=== PATIENT | female | born 1965 | race Caucasian/White ===

== ENCOUNTER 2021-01-12 16:34 | Outpatient (REF) | payer OTHER, SELFPAY ==
[2021-01-12 18:43] LABS: MANUAL DIFF FLAG NO
[2021-01-12 18:49] LABS: Basophils Absolute Auto 0.1 X10*3/uL (0.0-0.2); Basophils Percent Auto 0.8 % (0-2); Eosinophils Absolute Auto 0.2 X10*3/uL (0.0-0.4); Eosinophils Percent Auto 2.9 % (0-4); Hematocrit 38.3 % (37-47); Hemoglobin 12.7 g/dl (12.0-16.0); Imm Gran Abs Auto 0.02 X10*3/uL (0.00-0.03); Imm Gran Pct Auto 0.3 % (0.0-0.4); Lymphocytes Absolute Auto 1.9 X10*3/uL (1.2-4.9); Lymphocytes Percent Auto 30.2 % (20-40); Mean Corpuscular HGB Conc 33.2 g/dl (31.0-35.0); Mean Corpuscular Hemoglobin 29.5 pg (27.0-33.0); Mean Corpuscular Volume 89.1 fL (80-98); Mean Platelet Volume 9.5 fL (9.4-12.3); Monocytes Absolute Auto 0.6 X10*3/uL (0.1-1.2); Monocytes Percent Auto 10.2 % (2-11); Neutrophils Absolute Auto 3.5 X10*3/uL (2.0-8.3); Neutrophils Percent Auto 55.6 % (45-73); Platelet Count 212 X10*3/uL (160-400); Red Cell Distribution Width 13.3 % (11.0-16.0); White Blood Count 6.3 X10*3/uL (4.8-10.8)
[2021-01-12 19:13] LABS: Alanine Aminotransferase 23 U/L (0-31); Albumin Level 4.4 g/dL (3.5-5.0); Alkaline Phosphatase 69 U/L (39-117); Anion Gap 11 (12-20); Aspartate Amino Transferase 20 U/L (5-31); Bilirubin Total 1.1 mg/dL (0.0-1.0); Blood Urea Nitrogen 10 mg/dL (9-16); C Reactive Protein 0.03 mg/dL (< or = 0.50); Calcium 9.3 mg/dL (8.4-10.2); Carbon Dioxide 30 mmol/L (22-29); Chloride 105 mmol/L (96-108); Estimated Glomerular Filt Rate > 60; Glucose Random 91 mg/dL (60-115); Potassium 3.9 mmol/L (3.3-5.1); Sodium 142 mmol/L (135-145); Total Protein 6.6 g/dL (6.5-8.0)
[2021-01-12 19:34] LABS: Erythrocyte Sedimentation Rate 6 MM/HR (0-20)
== END 2021-01-12 16:35 | disposition home or self-care (01) ==
LOC: HO.LAB 16:34
PROVIDERS: PCP Nurse Practitioner Family; Visit Provider Student in an Organized Health Care Education/Training Program
DX: M25.50 Pain in unspecified joint (principal); Z79.899 Other long term (current) drug therapy
CPT/HCPCS: 36415; 80053; 85025; 85652; 86140

== ENCOUNTER 2024-08-07 09:55 | Outpatient (AMB) | payer OTHER, SELFPAY ==
--- NOTE | 2024-08-07 09:56 | A.OFFVIS_ITS ---
Vital Signs 08/07/24 09:57 Height 5 ft Weight 147 lb BMI 28.7 BP 128/67 Blood Pressure Location Lt brachial Position Sitting Respiration 14 Pulse 65 Pulse Source Pulse Oximeter Pulse Oximetry (%) 97 Oxygen Delivery Method Room Air Intake Visit Reasons: Disorder of sacrum Allergies penicillin V Allergy (Intermediate, Verified 08/07/24 09:57) rash Sulfacet-R Allergy (Intermediate, Uncoded 08/07/24 09:57) trouble breathing Medication List - Last Reconciled 08/07/24 by Angela Rhoades LPN acetaminophen ER (Tylenol Arthritis Pain) 650 mg PO Q12H calcium carbonate 600 mg PO DAILY celecoxib (Celebrex) 100 mg PO BID cholecalciferol (vitamin D3) 10 mcg PO DAILY docusate sodium (Colace) 100 mg PO TID fluticasone propionate 50 mcg/actuation 1 spray intranasal DAILY fluticasone propionate 100 mcg/actuation (Flovent Diskus) 1 inh inhalation BID hydroxychloroquine (Plaquenil) 200 mg PO DAILY inulin (Fiber Gummies) grams PO lactobacillus combination no.9 (Adult 50 Plus Probiotic) 4,000 mmu cells PO DAILY levothyroxine 100 mcg PO DAILY magnesium 250 mg PO DAILY melatonin 10 mg PO BEDTIME PRN montelukast (Singulair) 10 mg PO DAILY omeprazole 20 mg PO DAILY paroxetine HCl 40 mg PO DAILY HPI HPI Disorder of sacrum: Details: 58-year-old female who presents today to the office for evaluation of disorder of sacrum. She was referred by Dr. Rivas. She has had back pain for many years. The pain is rated at 7-8/10 in intensity. She describes her pain as an aching and stabbing sensation in the lower back region that radiates towards the bilateral lateral hip areas. She is unable to sleep normally or to her daily activities. The pain is worst at night and better when she first wakes up in the morning. Weather changes and movements make it worse. She is taking Plaquenil. She?has?tried?chiropractic manipulation and?m assage?therapy?a?few?times. She has been participating in a provider direct and home exercise program, which has not been very helpful. She has been following up with Dr. Rivas and had a left sacroiliac joint injection and had a fair to good response to anesthetic but little to no response to the steroid. Dr. Rivas prescribed a sacroiliac joint belt, but she is not using it as it does not stay in place. She has not done an MRI scan in the past. She has not done MBB or facet injection. [facility] Social History (Updated 01/12/21 @ 16:40 by Sri Raphael [facility]) Alcohol intake: never Review of Systems Const All systems reviewed & are unremarkable except as noted in HPI and below Physical Exam Vital Signs: Last Vital Signs Pulse 65 08/07/24 09:57 Resp 14 08/07/24 09:57 BP 128/67 08/07/24 09:57 Pulse Ox 97 08/07/24 09:57 Oxygen Delivery Method Room Air 08/07/24 09:57 BMI result Body Mass Index 28.7 General: Appears afebrile. Alert and oriented. Mood and affect appropriate. Follows and participates in conversation appropriately. Respiratory effort is unlabored. Able to transition from sit to stand unassisted. Ambulates with bilaterally normal heel strike and toe off. There is tenderness to palpation overlying the SI joints. There is mild discomfort with SI joint compression and thrust. Lumbar extension and flexion do not reproduce pain. Results Reviewed Results Reviewed: No imaging is available for review. Assessment & Plan Assessment & Plan (1) Low back pain: Code(s): M54.50 - Low back pain, unspecified Category: Medical Plan 58-year-old female with a long-standing history of back pain symptoms treated with chiropractor manipulation, physical therapy, a home exercise program, and anti-inflammatory medications, including DMARDS, for potential spondylarthritis with persistent symptoms. She has never had an MRI of her lower back. So, I recommended an MRI of the lumbar spine before undertaking any further therapy. Her differential includes vertebral endplate degeneration, intervertebral disc degeneration, inflammatory spondylarthritis, and sacroiliitis. We will review her MRI and decide a course of action and proceed after that. The patient is in agreement with the plan. Scribed for Dr. Joy by Tima Macias, medical territory manager, on 08/07/2024. I, Dr. Joy, have personally reviewed and agree with the information entered by the scribe. Orders: Orders MR lumbar spine wo con 08/07/24 M54.50 - Low back pain, unspecified Coding Level of Care Code New Pt Level 4 (13824) Diagnoses Low back pain M54.50
[2024-08-07 09:57] VITALS: BP 128/67; PULSE 65; RESP 14; O2SAT 97; BMI 28.7
== END 2024-08-07 10:44 | disposition home or self-care (01) ==
PROVIDERS: PCP Student in an Organized Health Care Education/Training Program; Visit Provider Internal Medicine
DX: M54.50 Low back pain, unspecified (principal)
CPT/HCPCS: 99204

== ENCOUNTER → 2024-08-07 09:55 | Outpatient (BNVA) | payer OTHER, SELFPAY | PROVIDERS: PCP Student in an Organized Health Care Education/Training Program; Visit Provider Internal Medicine ==

== ENCOUNTER 2024-09-18 09:28 | Outpatient (AMB) | payer OTHER, SELFPAY ==
--- NOTE | 2024-09-18 09:41 | MHC.OFFVIS ---
Vital Signs 09/18/24 09:44 Height 5 ft Weight 145 lb BMI 28.3 BP 112/70 Blood Pressure Location Lt brachial Position Sitting Respiration 16 Pulse Oximetry (%) 99 Oxygen Delivery Method Room Air Intake Visit Reasons: MRI FU Intake Note: Patient presents for MRI follow up. Allergies penicillin V Allergy (Intermediate, Verified 09/18/24 09:44) rash Sulfacet-R Allergy (Intermediate, Uncoded 08/07/24 09:57) trouble breathing HPI HPI MRI FU: Details: 59-year-old female who presents today to the office for a review of MRI scan. She reports back pain that occasionally radiates down to her hips. She has a long-standing history of back pain symptoms treated with chiropractor manipulation, physical therapy, a home exercise program, and anti-inflammatory medications, including DMARDS, for potential spondylarthritis with persistent symptoms. She has completed an MRI scan of the lumbar spine, which was reviewed today. She occasionally uses a steroid inhaler for mild and intermittent asthma. She also has a rescue inhaler. She has been on an inhaler for several years now. She has not done a DEXA scan in the past. She had one round of sacroiliac joint injection with orthopedics with no relief. [facility] Social History (Updated 01/12/21 @ 16:40 by Sri Raphael [facility]) Alcohol intake: never Review of Systems Const All systems reviewed & are unremarkable except as noted in HPI and below Physical Exam Vital Signs: Last Vital Signs Resp 16 09/18/24 09:44 BP 112/70 09/18/24 09:44 Pulse Ox 99 09/18/24 09:44 Oxygen Delivery Method Room Air 09/18/24 09:44 BMI result Body Mass Index 28.3 General: Appears afebrile. Alert and oriented. Mood and affect appropriate. Follows and participates in conversation appropriately. Respiratory effort is unlabored. Able to transition from sit to stand unassisted. Ambulates with bilaterally normal heel strike and toe off. Tenderness on palpation overlying lumbar L3-4 spinous processes. There is?tenderness?to?palpation?overlying?bilateral?sacral?regions,?right more?than?left. Lumbar extension reproduces pain. Lumbar flexion does not reproduce pain. Axial rotation is not uncomfortable. Results Reviewed Results Reviewed: 08/28/24: MR LUMBAR SPINE. Assessment & Plan Assessment & Plan (1) Sacroiliac joint dysfunction: Code(s): M53.3 - Sacrococcygeal disorders, not elsewhere classified Category: Medical (2) Lumbar spondylosis: Code(s): M47.816 - Spondylosis without myelopathy or radiculopathy, lumbar region Category: Medical (3) Disc degeneration, lumbar: Code(s): M51.369 - Other intervertebral disc degeneration, lumbar region without mention of lumbar back pain or lower extremity pain Category: Medical Plan Discussed temporary peripheral nerve stimulator vs. sacroiliac joint injection vs. home exercises as possible treatment options. We will schedule her for a right diagnostic sacroiliac joint injection as a 1st step given tenderness overlying the sacroiliac joints. I was unable to perform sacroiliac provocative maneuvers due to limited range of motion. Informed the patient that insurance approval is required. We will file a PA for approval and keep her updated. Discussed the risks and benefits of the procedure with the patient in detail. All questions were answered. The patient is on board with the plan. Justification for interventional therapy: ? Patient with average pain > 6/10 ? Patient has exhausted conservative therapy chiropractor manipulation, physical therapy, a home exercise program, and anti-inflammatory medications, including DMARDS. ? Patient continuing home exercise program . Patient has a good understanding of their pain condition and has appropriate mental and social support. Scribed for Dr. Joy by Tima Macias, medical surgical tech, on 09/18/2024. I, Dr. Joy, have personally reviewed and agree with the information entered by the scribe. Coding Level of Care Code Est Pt Level 4 (95751) Diagnoses Sacroiliac joint dysfunction M53.3 Lumbar spondylosis M47.816 Disc degeneration, lumbar M51.369
[2024-09-18 09:44] VITALS: BP 112/70; RESP 16; O2SAT 99; BMI 28.3
--- OUTSIDE RECORDS SUMMARY | 2024-09-23 06:58 | XMS_ITS | Continuity of Care Document ---
Demographics Address [address] [place] [address] Home Phone Mobile Phone Work Phone Email Address Preferred Language en Marital Status Unknown Voodoo Affiliation Unknown Race White Ethnic Group Not or Lati no Author Organization [place] - [facility], [facility] Address [address] [place] [address] Care Team Providers Care Automatic Head Sawyer Name Role Phone JAVAD CABRERA Primary Care Provider [phone] Assessment Encounter Date Assessment Date Assessment LastModified by Organization Details LastModified Time 08/10/2024 08/10/2024 Patient presents for evaluation of ears. Cerumen successfully removed bilaterally, which patient tolerated well. Otologic exam otherwise unremarkable. Patient reported hearing returned to baseline thereafter and declined audiometric testing. Return in 3-6 months for cerumen removal. Avoid Q-tips. Avoid or protect against loud noise. Recommend annual audiometric testing, sooner with perceived change. Patient understands to call sooner with any issues that arise. [email or web address] Not available 08/10/2024 15:19:04 Plan of Treatment Reminders Order Date Submit Date Provider Last Modified By Organization Details Last Modified Time Details Appointments Establish ed 15 2024 03:30P Julio C RDZ PA-C Not available Not available Not available Lab None recorded. Referral None recorded. Procedures None recorded. Surgeries None recorded. Imaging None recorded. Medication Orders None recorded. Patient TargetsNo targets recorded. Patient InstructionsNo instructions recorded. Reason for Referral None Reported. Problems Name Problem SNOMED Code Status Onset Date Resolution Date Notes Provider Name and Address Organization Details Recorded Time Unilatera l conductiv e hearing loss with unrestric flavia hearing on the contralat eral side Active 2013 Conductiv e HL, unilatera l; Note: Date Diagnosed : 4 1:11 PM (389.05) Not Available [facility] 4 02:56:41 Impacted cerumen 30127682 Active 2013 Impacted cerumen; Note: Date Diagnosed : 4 12:39 PM (380.4) Not Available [facility] 4 02:56:43 Impacted cerumen in right ear 77012455554 48016 Active 2016 Impacted cerumen, right ear; Note: Date Diagnosed : 10/29/2016 1:32 PM (H61.21) Not Available [facility] 4 02:56:43 Mixed conductiv e and sensorine ural hearing loss of left ear 11359213007 107 Active 2015 Mixed conductiv e and sensorine ural hearing loss, unilatera l, left ear, with unrestric flavia hearing on the contralat eral side; Note: Date Diagnosed : 11/02/2015 3:00 PM (H90.72) Not Available [facility] 4 02:56:41 Allergic rhinitis 87502680 Active 2015 Allergic rhinitis, unspecifi ed; Note: Date Diagnosed : 04/19/2016 9:48 AM (J30.9) Not Available [facility] 4 02:56:42 Referred otalgia 35692870 Active 2013 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; Note: Date Diagnosed : 4 12:39 PM (388.72) Not Available [facility] 4 02:56:42 Pain of right temporoma ndibular joint 46083834622 185820 Active 2016 Arthralgi a of right temporoma ndibular joint; Note: Date Diagnosed : 10/29/2016 1:32 PM (M26.621) Not Available [facility] 4 02:56:42 Conductiv e hearing loss 52370984 Active 2015 Conductiv e hearing loss, unilatera l, left ear, with unrestric flavia hearing on the contralat eral side; Note: Date Diagnosed : 11/02/2015 1:22 PM (H90.12) Not Available [facility] 4 02:56:41 Impacted cerumen of bilateral ears 70701172400 76500 Active 2015 Impacted cerumen, bilateral ; Condition : recurrent Note: Date Diagnosed : 09/13/2015 10:51 AM (H61.23) Impacte d cerumen, bilateral ; Condition : recurrent Note: Date Diagnosed : 04/15/2018 9:44 AM (H61.23) Not Available [facility] 4 02:56:40 Problem Notes None recorded. Procedures Surgical History Date Name Laterality Status Provider Name and Address Organization Details Recorded Time 4 Cerumen removal without microscope bilat completed EDDIE RDZ PA-C [address] [place] [address],[address], [address], [facility] 08/10/2024 15:18:48 Imaging Results None recorded. Procedure Notes None recorded. Medical Equipment None Reported. Allergies Allergen ID Allergen Name Allergen Category Reaction Reaction Severity Criticality Documentation Date Start Date Code Code System Note Provider Name and Address Organization Details Recorded Time 90437 penicilli n V potassium medicatio n other Not available Not available 02/25/202410801 5 RxNorm React ion: unkno wn, unspe cifie d;; Not Available [facility] 4 01:05:11 25538 Substance with sulfonami de structure and antibacte rial mechanism of action (substanc e) medicatio n other Not available Not available 02/25/2024 21842 8003 SNOMED React ion: unkno wn, unspe cifie d;; Not Available [facility] 4 01:05:11 Medications Name Sig Start Date Stop Date Status Note LastModified by Organization Details LastModified Time gabapenti n 600 mg tablet 2018 active Medicati on ID: [id number] D uration Value: 90 Brand Name: gabapent in Send Method: E-Prescr ibed Sub s Allowed: subs OK Medic ationGen ericName : gabapent in Not Available Not Available Not Available ropinirol e 1 mg tablet TAKE 1 TABLET BY MOUTH AT BEDTIME active Not Available Not Available No t Available tizanidin e 4 mg tablet TAKE 1-2 TABLETS (4-8 MG) BY MOUTH AT BEDTIME. FOR RESTLESS LEGS active Not Available Not Available No t Available ropinirol e 3 mg tablet active Not Available Not Available Not Available acetamino phen 300 mg-codein e 30 mg tablet 11/02 completed Medicati on ID: [id number] Du ration Value: 2 Reason: () Brand Name: acetamin ophen-co deine Se nd Method: E-Prescr ibed Sub s Allowed: subs OK Medic ationGen ericName : acetamin ophen-co deine Not Available Not Available Not Available levothyro xine 75 mcg tablet active Not Available Not Available Not Available erythromy greg 250 mg tablet 11/02 completed Medicati on ID: [id number] Du ration Value: 7 Reason: () Brand Name: erythrom ycin Sen d Method: E-Prescr ibed Sub s Allowed: subs OK Medic ationGen ericName : erythrom ycin Not Available Not Available Not Available Vitamin D3 10 mcg (400 unit) tablet TAKE 1 TABLET BY MOUTH EVERY DAY active Not Available Not Available No t Available baclofen 10 mg tablet TAKE 0.5 TABLETS (5 MG) BY MOUTH EVERY 8 (EIGHT) HOURS IF NEEDED FOR MUSCLE SPASMS. active Not Available Not Available No t Available ropinirol e 2 mg tablet active Not Available Not Available Not Available paroxetin e 30 mg tablet TAKE 1 TABLET (30 MG) BY MOUTH IN THE MORNING active Not Available Not Available No t Available paroxetin e 20 mg tablet TAKE 1 TABLET BY MOUTH EVERY DAY IN THE MORNING active Not Available Not Available No t Available ropinirol e 0.5 mg tablet TAKE 1.5 TABLETS (0.75 MG) BY MOUTH AT BEDTIME. active Not Available Not Available No t Available Synthroid 88 mcg tablet 04/07 completed Medicati on ID: [id number] Du ration Value: 90 Reason: () Brand Name: Synthroi d Send Method: E-Prescr ibed Sub s Allowed: subs OK Medic ationGen ericName : Synthroi d Not Available Not Available Not Available triamcino lone acetonide 0.025 % topical ointment APPLY TO AFFECTED AREA TWICE A DAY FOR 14 DAYS active Not Available Not Available No t Available omeprazol e 20 mg capsule,d elayed release active Not Available Not Available Not Available monteluka st 10 mg tablet active Not Available Not Available Not Available gabapenti n 100 mg capsule 04/07 completed Medicati on ID: [id number] D uration Value: 90 Reason: () Brand Name: gabapent in Send Method: E-Prescr ibed Sub s Allowed: subs OK Medic ationGen ericName : gabapent in Not Available Not Available Not Available hydroxych loroquine 200 mg tablet TAKE 1.5 TABLETS (300 MG TOTAL) BY MOUTH DAILY. TAKE WITH FOOD active Not Available Not Available No t Available albuterol sulfate HFA 90 mcg/actua tion aerosol inhaler 2018 active Medicati on ID: [id number] D uration Value: 75 Brand Name: albutero l sulfate Send Method: E-Prescr ibed Sub s Allowed: subs OK Medic ationGen ericName : albutero l sulfate Not Available Not Available Not Available paroxetin e 40 mg tablet active Not Available Not Available Not Available celecoxib 100 mg capsule active Not Available Not Available Not Available fluticaso ne propionat e 50 mcg/actua tion nasal spray,ibrahima pension active Not Available Not Available Not Available escitalop tabitha 10 mg tablet TAKE 1 TABLET (10 MG) BY MOUTH ONCE PER DAY. active Not Available Not Available No t Available duloxetin e 20 mg capsule,d elayed release TAKE 1 CAPSULE DAILY FOR 1 WEEK, THEN INCREASE TO 40 MG DAILY INSTRUCT ED. DO NOT CRUSH OR CHEW. active Not Available Not Available No t Available duloxetin e 30 mg capsule,d elayed release TAKE 1 CAPSULE (30 MG) BY MOUTH ONCE PER DAY. DO NOT CRUSH OR CHEW. active Not Available Not Available No t Available duloxetin e 60 mg capsule,d elayed release TAKE 1 CAPSULE (60 MG) BY MOUTH ONCE PER DAY. DO NOT CRUSH OR CHEW. active Not Available Not Available No t Available Flovent HFA 110 mcg/actua tion aerosol inhaler 2018 active Medicati on ID: [id number] D uration Value: 90 Brand Name: Flovent HFA Send Method: E-Prescr ibed Sub s Allowed: subs OK Medic ationGen ericName : Flovent HFA Not Available Not Available Not Available GaviLyte- G 236 gram-22.7 4 gram-6.74 gram-5.86 gram oral solution PLEASE SEE ATTACHED FOR DETAILED DIRECTIO NS active Not Available Not Available No t Available Readi-Cat 2 2 % (w/v) oral suspensio n PLEASE SEE ATTACHED FOR DETAILED DIRECTIO NS active Not Available Not Available No t Available Paxlovid 300 mg (150 mg x 2)-100 mg tablets in a dose pack TAKE 3 TABLETS BY MOUTH TWICE A DAY FOR 5 DAYS active Not Available Not Available No t Available Vitals Date Recorded Body height Body mass index (BMI) Body weight Provider Name and Address Organization Details Last Updated DateTime 08/10/2024 152.4 cm 27.3 kg/m2 64637.93 g Manjula Massey [place] - [facility] 08/10/2024 15:12:39 Social History None recorded. Functional Status None recorded. Mental Status None recorded. Family History Nothing Reported. Medical History No medical history recorded. Gynecological HistoryNo gynecological history recorded. Obstetrics History GPAL:G 0 P 0 0 0 0 Past Encounters Encounter ID Performer Location Encounter Start Date Encounter Closed Date Diagnosis/Indication Diagnosis SNOMED-CT Code Diagnosis ICD10 Code [id number] JESUSITA DEL ANGEL MD [facility] [address] [address] 08/10/2024 15:03:18 08/10/2024 15:20:31 Impacted cerumen of bilateral ears [id number] 568330 H61.23 Health Concerns Section Related Observation LastModified by Organization Detai ls LastModified Time None Recorded Concern Status LastModified by Organization Details LastModified Time None Recorded Payers None recorded. Notes Date Note Type Note Provider Name and Address Organization Details Recorded Time 08/10/2024 text/html 58-year-old female presents for evaluation of the ears. Denies change in hearing, otalgia, otorrhea, and trouble with her hearing aids. JESUSITA HARRIS MD [address] [place] [address], [address], [facility] - [facility] 08/10/2024 16:30:04 OBGyn Episode No OBEpisode recorded.
--- OUTSIDE RECORDS SUMMARY | 2024-09-23 06:58 | XMS_ITS | Data Portability ---
Demographics Address [address] [place] [address] Home Phone Mobile Phone Work Phone Email Address Preferred Language en Marital Status Unknown Gnosticist Affiliation Unknown Race White Ethnic Group Not or Lati no Author Organization [place] - [facility], Allergy Address [address] [address] Care Team Providers Care Repairer Art Objects Name Role Phone JAVAD CABRERA Primary Care Provider Assessment Encounter Date Assessment Date Assessment LastModified [...] Not Available [facility] 4 02:56:41 Impacted cerumen 65861874 Active 2013 Impacted cerumen; Note: Date Diagnosed : 4 12:39 PM (380.4) Not Available [facility] 4 02:56:43 Impacted cerumen in right ear 20133888463 52695 Active 2016 Impacted cerumen, right ear; Note: Date Diagnosed : 10/29/2016 1:32 PM (H61.21) Not Available [facility] 4 02:56:43 Mixed conductiv e and sensorine ural hearing loss of left ear 60598265712 107 Active 2015 Mixed conductiv e and sensorine ural hearing loss, unilatera l, left ear, with unrestric flavia hearing on the contralat eral side; Note: Date Diagnosed : 11/02/2015 3:00 PM (H90.72) Not Available [facility] 4 02:56:41 Allergic rhinitis 96501188 Active 2015 Allergic rhinitis, unspecifi ed; Note: Date Diagnosed : 04/19/2016 9:48 AM (J30.9) [facility] 4 02:56:42 Referred otalgia 86739589 Active 2013 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; Note: Date Diagnosed : 4 12:39 PM (388.72) Not Available [facility] 4 02:56:42 Pain of right temporoma ndibular joint 53346732006 870010 Active 2016 Arthralgi a of right temporoma ndibular joint; Note: Date Diagnosed : 10/29/2016 1:32 PM (M26.621) Not Available [facility] 4 02:56:42 Conductiv e hearing loss 34038472 Active 2015 Conductiv e hearing loss, unilatera l, left ear, with unrestric flavia hearing on the contralat eral side; Note: Date Diagnosed : 11/02/2015 1:22 PM (H90.12) Not Available [facility] 4 02:56:41 Impacted cerumen of bilateral ears 48827130062 47634 Active 2015 Impacted cerumen, bilateral ; Condition : recurrent Note: Date Diagnosed : 09/13/2015 10:51 AM (H61.23) Impacte d cerumen, bilateral ; Condition : recurrent Note: Date Diagnosed : 04/15/2018 9:44 AM (H61.23) Not Available [facility] 4 02:56:40 Problem Notes None recorded. Procedures Surgical History Date Name Laterality Status Provider Name and Address Organization Details Recorded Time 4 Cerumen removal without microscope bilat completed EDDIE RDZ PA-C [address] [place] [address],[address], [address], [facility] 08/10/2024 15:18:48 Imaging Results None recorded. Procedure Notes None recorded. Medical Equipment None Reported. Allergies Allergen ID Allergen Name Allergen Category Reaction Reaction Severity Criticality Documentation Date Start Date Code Code System Note Provider Name and Address Organization Details Recorded Time 44453 penicilli n V potassium medicatio n other Not available Not available 02/25/202445687 5 RxNorm React ion: unkno wn, unspe cifie d;; Not Available [facility] 4 01:05:11 15474 Substance with sulfonami de structure and antibacte rial mechanism of action (substanc e) medicatio n other Not available Not available 02/25/2024 63686 8003 SNOMED React ion: unkno wn, unspe cifie d;; Not Available [facility] 4 01:05:11 Medications Name Sig Start Date Stop Date Status Note LastModified by Organization Details LastModified Time gabapenti n 600 mg tablet 2018 active Medicati on ID: [id number] D uration Value: 90 Brand Name: gabapent [...] mg tablet 11/02 completed Medicati on ID: [id number] Du ration Value: 2 Reason: () Brand Name: acetamin ophen-co deine Se nd Method: E-Prescr ibed Sub s Allowed: subs OK Medic ationGen ericName : acetamin ophen-co deine Not Available Not Available Not Available levothyro xine 75 mcg tablet active Not Available Not Available Not Available erythromy greg 250 mg tablet 11/02 completed Medicati on ID: 11849 Du ration Value: 7 Reason: () Brand [...] mcg tablet 04/07 completed Medicati on ID: [id number] Du ration Value: 90 Reason: () Brand [...] mg capsule 04/07 completed Medicati on ID: [id number] D uration Value: 90 Reason: () Brand [...] aerosol inhaler 2018 active Medicati on ID: [id number] D uration Value: 75 Brand Name: albutero [...] aerosol inhaler 2018 active Medicati on ID: [id number] D uration Value: 90 Brand Name: Flovent [...] Updated DateTime 08/10/2024 152.4 cm 27.3 kg/m2 24797.93 g Manjula Massey [place] - [facility] 08/10/2024 15:12:39 Social History None recorded. Functional Status None recorded. Mental Status None recorded. Family History Nothing Reported. Medical History No medical history recorded. Gynecological HistoryNo gynecological history recorded. Obstetrics History GPAL:G 0 P 0 0 0 0 Past Encounters Encounter ID Performer Location Encounter Start Date Encounter Closed Date Diagnosis/Indication Diagnosis SNOMED-CT Code Diagnosis ICD10 Code [id number] JESUSITA DEL ANGEL MD [facility] [address] [address] 08/10/2024 15:03:18 08/10/2024 15:20:31 Impacted cerumen of bilateral ears [id number] 354861 H61.23 Health Concerns Section Related Observation LastModified by Organization Detai ls LastModified Time None Recorded Concern Status LastModified by Organization Details LastModified Time None Recorded Advance Directives Directive None Recorded Payers None recorded. Notes Date Note Type Note Provider Name and Address Organization Details Recorded Time 08/10/2024 text/html 58-year-old female presents for evaluation of the ears. Denies change in hearing, otalgia, otorrhea, and trouble with her hearing aids. JESUSITA HARRIS MD [address] [place] [address], [address], [place] - [facility] 08/10/2024 16:30:04 OBGyn Episode No OBEpisode recorded.
== END 2024-09-18 10:36 | disposition home or self-care (01) ==
PROVIDERS: PCP Student in an Organized Health Care Education/Training Program; Visit Provider Internal Medicine
DX: M53.3 Sacrococcygeal disorders, not elsewhere classified (principal); M47.816 Spondylosis without myelopathy or radiculopathy, lumbar region; M51.369 Other intervertebral disc degeneration, lumbar region without mention of lumbar back pain or lower extremity pain
CPT/HCPCS: 99214

== ENCOUNTER 2024-10-08 06:39 | Outpatient (REF) | payer OTHER, SELFPAY | END 2024-10-08 06:40 | disposition home or self-care (01) | LOC: CF 06:39 | PROVIDERS: Visit Provider Internal Medicine | DX: M53.3 Sacrococcygeal disorders, not elsewhere classified (principal) | CPT/HCPCS: 27096; J2003; J2795 ==

== ENCOUNTER 2024-10-08 10:36 | Outpatient (AMB) | payer OTHER, SELFPAY ==
--- OUTSIDE RECORDS SUMMARY | 2024-10-08 10:37 | XMS_ITS | Data Portability ---
Demographics Address [address] [place] [address] Home Phone Mobile Phone Work Phone Email Address Preferred Language en Marital Status Unknown Rastafarian Affiliation Unknown Race White Ethnic Group Not or Lati no Author Organization [place] - [facility], [facility] Address [address] [address] Care Team Providers Care Receivable Manager Name Role Phone JAVAD CABRERA Primary Care [...] Details Appointments Establish ed 15 2024 03:30P M EDDIE RDZ PA-C Not available Not available Not [...] Not Available [facility] 4 02:56:41 Impacted cerumen 32711762 Active 2013 Impacted cerumen; Note: Date Diagnosed : 4 12:39 PM (380.4) Not Available [facility] 4 02:56:43 Impacted cerumen in right ear 37217263034 60390 Active 2016 Impacted cerumen, right ear; Note: Date Diagnosed : 10/29/2016 1:32 PM (H61.21) Not Available [facility] 4 02:56:43 Mixed conductiv e and sensorine ural hearing loss of left ear 76779089899 107 Active 2015 Mixed conductiv e and sensorine ural hearing loss, unilatera l, left ear, with unrestric flavia hearing on the contralat eral side; Note: Date Diagnosed : 11/02/2015 3:00 PM (H90.72) Not Available [facility] 4 02:56:41 Allergic rhinitis 65516569 Active 2015 Allergic rhinitis, unspecifi ed; Note: Date Diagnosed : 04/19/2016 9:48 AM (J30.9) [facility] 4 02:56:42 Referred otalgia 72357618 Active 2013 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; Note: Date Diagnosed : 4 12:39 PM (388.72) Not Available [facility] 4 02:56:42 Pain of right temporoma ndibular joint 02400967721 255521 Active 2016 Arthralgi a of right temporoma ndibular joint; Note: Date Diagnosed : 10/29/2016 1:32 PM (M26.621) Not Available [facility] 4 02:56:42 Conductiv e hearing loss 92749181 Active 2015 Conductiv e hearing loss, unilatera l, left ear, with unrestric flavia hearing on the contralat eral side; Note: Date Diagnosed : 11/02/2015 1:22 PM (H90.12) Not Available [facility] 4 02:56:41 Impacted cerumen of bilateral ears 78120068754 48423 Active 2015 Impacted cerumen, bilateral ; Condition : recurrent Note: Date Diagnosed : 09/13/2015 10:51 AM (H61.23) Impacte d cerumen, bilateral ; Condition : recurrent Note: Date Diagnosed : 04/15/2018 9:44 AM (H61.23) Not Available [facility] 4 02:56:40 Problem Notes None recorded. Procedures Surgical History Date Name Laterality Status Provider Name and Address Organization Details Recorded Time 4 Cerumen removal without microscope bilat completed EDDIE RDZ PA-C [address] [place] [address],[address], [address], [facility] 08/10/2024 15:18:48 Imaging Results None recorded. Procedure Notes None recorded. Medical Equipment None Reported. Allergies Allergen ID Allergen Name Allergen Category Reaction Reaction Severity Criticality Documentation Date Start Date Code Code System Note Provider Name and Address Organization Details Recorded Time 86891 penicilli n V potassium medicatio n other Not available Not available 02/25/202413903 5 RxNorm React ion: unkno wn, unspe cifie d;; Not Available [facility] 4 01:05:11 16472 Substance with sulfonami de structure and antibacte rial mechanism of action (substanc e) medicatio n other Not available Not available 02/25/2024 62136 8003 SNOMED React ion: unkno wn, unspe cifie d;; Not Available [facility] 4 01:05:11 Medications Name Sig Start Date Stop Date Status Note LastModified by Organization Details LastModified Time gabapenti n 600 mg tablet 2018 active Medicati on ID: [id number] D uration Value: 90 Brand Name: gabapent [...] mg tablet 11/02 completed Medicati on ID: 40572 Du ration Value: 2 Reason: () Brand Name: acetamin ophen-co deine Se nd Method: E-Prescr ibed Sub s Allowed: subs OK Medic ationGen ericName : acetamin ophen-co deine Not Available Not Available Not Available levothyro xine 75 mcg tablet active Not Available Not Available Not Available erythromy greg 250 mg tablet 11/02 completed Medicati on ID: [id number] Du ration Value: 7 Reason: () Brand [...] mcg tablet 04/07 completed Medicati on ID: 80121 Du ration Value: 90 Reason: () Brand [...] mg capsule 04/07 completed Medicati on ID: [id number] D uration Value: 90 Reason: () Brand [...] aerosol inhaler 2018 active Medicati on ID: [id number] D uration Value: 75 Brand Name: albutero [...] aerosol inhaler 2018 active Medicati on ID: [id number] D uration Value: 90 Brand Name: Flovent [...] Updated DateTime 08/10/2024 152.4 cm 27.3 kg/m2 60741.93 g Manjula Massey [place] - [facility] 08/10/2024 15:12:39 Social History None recorded. Functional Status None recorded. Mental Status None recorded. Family History Nothing Reported. Medical History No medical history recorded. Gynecological HistoryNo gynecological history recorded. Obstetrics History GPAL:G 0 P 0 0 0 0 Past Encounters Encounter ID Performer Location Encounter Start Date Encounter Closed Date Diagnosis/Indication Diagnosis SNOMED-CT Code Diagnosis ICD10 Code [id number] JESUSITA DEL ANGEL MD [facility] [address] [address] 08/10/2024 15:03:18 08/10/2024 15:20:31 Impacted cerumen of bilateral ears [id number] 957371 H61.23 Health Concerns Section Related Observation LastModified [...] with her hearing aids. JESUSITA HARRIS MD [address] [place] [address], [address], [place] - [facility] 08/10/2024 16:30:04 OBGyn Episode No OBEpisode recorded.
[2024-10-08 10:43] VITALS: BP 115/81; PULSE 84; O2SAT 97
--- NOTE | 2024-10-08 10:43 | MHC.OFFVIS ---
Vital Signs 10/08/24 10:43 10/08/24 11:21 BP 115/81 115/65 Blood Pressure Location Lt brachial Lt brachial Position Sitting Sitting Pulse 84 70 Pulse Source Pulse Oximeter Pulse Oximeter Pulse Oximetry (%) 97 97 Oxygen Delivery Method Room Air Room Air Intake Visit Reasons: Right Dx SIJ inj Allergies penicillin V Allergy (Intermediate, Verified 09/18/24 09:44) rash Sulfacet-R Allergy (Intermediate, Uncoded 08/07/24 09:57) trouble breathing HPI HPI Right Dx SIJ inj: Details: Patient presents for scheduled procedure. Denies any recent cough, cold, infection, fever or other significant changes in medical history since last office visit. [facility] Social History (Updated 01/12/21 @ 16:40 by Sri Raphael [facility]) Alcohol intake: never Physical Exam Vital Signs: Last Vital Signs Pulse 84 10/08/24 10:43 BP 115/81 10/08/24 10:43 Pulse Ox 97 10/08/24 10:43 Oxygen Delivery Method Room Air 10/08/24 10:43 Office Procedures AMB Joint Injection/Aspiration Joint Injection/Aspiration Details: Diagnostic Sacroiliac Joint Injection, right The procedure, its benefits, and its risks were explained and written informed consent was obtained from the patient. Immediately prior to starting the procedure, a time-out safety check was conducted. The patient's identification, procedure name, procedure site, and procedure laterality were confirmed with the patient. ? Patient was placed prone on the fluoroscopy table and the lumbosacral area was prepped using ChloraPrep and draped with sterile drapein standard fashion. The C-arm was rotated in a contralateral oblique fashion until the medial border of the iliac crest no longer foreshadowed the posterior sacroiliac joint line. The skin and subcutaneous tissue was anesthetized using 1 mL of 0.75% plain lidocaine with 1.5-inch 25-gauge needle in the middle region of the joint line.? A 3.5-inch 22-gauge spinal needle with small bend on the tip was slowly advanced towards the joint line, coaxial to the x-ray beam. Once bony content was obtained, the needle was easily slid into the intra-articular space.? Intra-articular needle position was confirmed using lateral fluoroscopy.? A total volume of 2.5mL 0.5% of ropivacaine was injected intra-articularly. The stylet was reinserted and needle was removed. The patient tolerated the procedure well. Patient denied any lower extremity weakness or numbness. Patient was observed for 30 min and was discharged after fulfilling the standard discharge criteria. Coding 86239 - Sacroiliac Procedure code (CPT) selection complete Assessment & Plan Assessment & Plan (1) Sacroiliac joint dysfunction: Code(s): M53.3 - Sacrococcygeal disorders, not elsewhere classified Category: Medical Plan Patient is status post diagnostic right SI joint injection. Patient tolerated procedure well and was discharged home in stable condition with discharge instructions. All questions were answered. We will follow-up via telephone or in clinic to assess response to therapy. A follow-up appointment was made during today's visit. Orders: Orders FL guidance in treatment room Today M53.3 - Sacrococcygeal disorders, not elsewhere classified Coding Level of Care Code Procedure Only Diagnoses Sacroiliac joint dysfunction M53.3 CPT Codes Coding - Joint 9: 35418 - Sacroiliac ([id number])
[2024-10-08 11:21] VITALS: BP 115/65; PULSE 70; O2SAT 97
== END 2024-10-08 11:21 | disposition home or self-care (01) ==
PROVIDERS: PCP Student in an Organized Health Care Education/Training Program; Visit Provider Internal Medicine
DX: M53.3 Sacrococcygeal disorders, not elsewhere classified (principal)
CPT/HCPCS: 27096

== ENCOUNTER 2024-10-12 08:47 | Outpatient (AMB) | payer OTHER, SELFPAY ==
--- NOTE | 2024-10-12 08:49 | MHC.OFFVIS ---
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 Joy. Patient reports 0% pain relief since procedure without any improvement pain reduction or functioning improvement. She continues to endorse axial low back pain with daily activities, sleep and mobility. She also reports left knee pain for 1 month without any inciting events. She has pain wearing knee brace, taking NSAIDs, Tylenol, resting and elevating with partial relief. Lumbar spine MRI was reviewed with patient today and is noted below. Patient is interested to address her axial low back pain this diagnostic lumbar medial branch blocks for potential Sprint PNS trial or RFA procedures. Denies any fever or chills, balance issues, weakness, foot drop, bladder or bowel dysfunction, or saddle anesthesia. Past Procedures: 10/08/24: Right Diagnostic SIJ injection-0% pain relief PRIOR: 59-year-old female who presents today to the office for a review of MRI scan. She reports back pain that occasionally radiates down to her hips. She has a long-standing history of back pain symptoms treated with chiropractor manipulation, physical therapy, a home exercise program, and anti-inflammatory medications, including DMARDS, for potential spondylarthritis with persistent symptoms. She has completed an MRI scan of the lumbar spine, which was reviewed today. She occasionally uses a steroid inhaler for mild and intermittent asthma. She also has a rescue inhaler. She has been on an inhaler for several years now. She has not done a DEXA scan in the past. She had one round of sacroiliac joint injection with orthopedics with no relief. [facility] Medical History (Updated 10/12/24 @ 09:11 by HONG Christian) Seasonal allergies Left knee pain Endometriosis Epidermoid cyst Fibromyalgia Asthma Deafness in left ear Osteoarthritis Low back pain Lumbar spondylosis Disc degeneration, lumbar Polyarthralgia Surgical History (Updated 10/12/24 @ 09:11 by HONG Christian) History of appendectomy History of ear surgery Social History Alcohol intake: never Review of Systems Const All systems reviewed & are unremarkable except as noted in HPI and below Physical Exam Vital Signs: Last Vital Signs Pulse 62 10/12/24 08:55 BP 134/63 10/12/24 08:55 Pulse Ox 97 10/12/24 08:55 Oxygen Delivery Method Room Air 10/12/24 08:55 BMI result Body Mass Index 27.7 General: Appears afebrile. Alert and oriented. Mood and affect appropriate. Follows and participates in conversation appropriately. Respiratory effort is unlabored. Able to transition from sit to stand unassisted. Ambulates with bilaterally normal heel strike and toe off. Back exam: Tenderness on palpation overlying lumbar L3-4 spinous processes. There is?tenderness?to?palpation?overlying?bilateral?sacral?regions,?right more?than?left. Lumbar extension reproduces moderate pain. Axial rotation reproduces mild pain. Lumbar flexion is intact and does not reproduce pain. Positive facet loading bilaterally. SLR testing is negative bilaterally. Extrem General: Yes capillary refill normal, Yes no clubbing, cyanosis or edema and Yes no calf tenderness Results Reviewed Results Reviewed: 08/28/24: MR LUMBAR SPINE. Assessment & Plan Assessment & Plan (1) Left knee pain: Code(s): M25.562 - Pain in left knee Category: Medical (2) Lumbar spondylosis: Code(s): M47.816 - Spondylosis without myelopathy or radiculopathy, lumbar region Category: Medical (3) Low back pain: Code(s): M54.50 - Low back pain, unspecified Category: Medical (4) Disc degeneration, lumbar: Code(s): M51.369 - Other intervertebral disc degeneration, lumbar region without mention of lumbar back pain or lower extremity pain Category: Medical (5) Sacroiliac joint dysfunction: Code(s): M53.3 - Sacrococcygeal disorders, not elsewhere classified Category: Medical Plan Patient is 1 week status post diagnostic right SI joint injection without any relief. Lumbar spine MRI results were discussed with patient today. We will proceed with bilateral diagnostic L3-L4 DR L5 MBB injections with local and fluoroscopy to address axial low back pain as next steps. If she has significant relief from the diagnostic blocks for her axial low back pain, will consider either therapeutic injections, Sprint PNS or RFA depending on her preference. Informational pamphlets were provided to patient. All questions were answered and the patient is in agreement of plan. Follow-up after injections and sooner as needed. Coding Level of Care Code Est Pt Level 4 (94494) Complex EM visit Add On G2211 Diagnoses Left knee pain M25.562 Lumbar spondylosis M47.816 Low back pain M54.50 Disc degeneration, lumbar M51.369 Sacroiliac joint dysfunction M53.3
--- OUTSIDE RECORDS SUMMARY | 2024-10-12 08:50 | XMS_ITS | Data Portability ---
Demographics Address [address] [place] [address] Home Phone Mobile Phone Work Phone Email Address Preferred Language en Marital Status Unknown Evangelical Affiliation Unknown Race White Ethnic Group Not or Lati no Author Organization [place] - [facility], Allergy Address [address] [address] Care Team Providers Care Cycling Instructor Name Role Phone JAVAD CABRERA Primary Care [...] Not Available [facility] 4 02:56:41 Impacted cerumen 08012351 Active 2013 Impacted cerumen; Note: Date Diagnosed : 4 12:39 PM (380.4) Not Available [facility] 4 02:56:43 Impacted cerumen in right ear [id number] 18870 Active 2016 Impacted cerumen, right ear; Note: Date Diagnosed : 10/29/2016 1:32 PM (H61.21) Not Available [facility] 4 02:56:43 Mixed conductiv e and sensorine ural hearing loss of left ear 71830948351 107 Active 2015 Mixed conductiv e and sensorine ural hearing loss, unilatera l, left ear, with unrestric flavia hearing on the contralat eral side; Note: Date Diagnosed : 11/02/2015 3:00 PM (H90.72) Not Available [facility] 4 02:56:41 Allergic rhinitis 46779652 Active 2015 Allergic rhinitis, unspecifi ed; Note: Date Diagnosed : 04/19/2016 9:48 AM (J30.9) Not Available [facility] 4 02:56:42 Referred otalgia 44969315 Active 2013 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; Note: Date Diagnosed : 4 12:39 PM (388.72) Not Available [facility] 4 02:56:42 Pain of right temporoma ndibular joint 85669259762 871811 Active 2016 Arthralgi a of right temporoma ndibular joint; Note: Date Diagnosed : 10/29/2016 1:32 PM (M26.621) Not Available [facility] 4 02:56:42 Conductiv e hearing loss 28746043 Active 2015 Conductiv e hearing loss, unilatera l, left ear, with unrestric flavia hearing on the contralat eral side; Note: Date Diagnosed : 11/02/2015 1:22 PM (H90.12) Not Available [facility] 4 02:56:41 Impacted cerumen of bilateral ears 28390359054 55310 Active 2015 Impacted cerumen, bilateral ; Condition : recurrent Note: Date Diagnosed : 09/13/2015 10:51 AM (H61.23) Impacte d cerumen, bilateral ; Condition : recurrent Note: Date Diagnosed : 04/15/2018 9:44 AM (H61.23) Not Available [facility] 4 02:56:40 Problem Notes None recorded. Procedures Surgical History Date Name Laterality Status Provider Name and Address Organization Details Recorded Time 4 Cerumen removal without microscope bilat completed EDDIE RDZ PA-C [address] [place] [address],[address], [address], [facility] 08/10/2024 15:18:48 Imaging Results None recorded. Procedure Notes None recorded. Medical Equipment None Reported. Allergies Allergen ID Allergen Name Allergen Category Reaction Reaction Severity Criticality Documentation Date Start Date Code Code System Note Provider Name and Address Organization Details Recorded Time 56477 penicilli n V potassium medicatio n other Not available Not available 02/25/202427924 5 RxNorm React ion: unkno wn, unspe cifie d;; Not Available [facility] 4 01:05:11 02003 Substance with sulfonami de structure and antibacte rial mechanism of action (substanc e) medicatio n other Not available Not available 02/25/2024 39097 8003 SNOMED React ion: unkno wn, unspe cifie d;; Not Available [facility] 4 01:05:11 Medications Name Sig Start Date Stop Date Status Note LastModified by Organization Details LastModified Time gabapenti n 600 mg tablet 2018 active Medicati on ID: [id number] D uration Value: 90 Brand Name: gabapent [...] mg tablet 11/02 completed Medicati on ID: 62103 Du ration Value: 2 Reason: () Brand Name: acetamin ophen-co deine Se nd Method: E-Prescr ibed Sub s Allowed: subs OK Medic ationGen ericName : acetamin ophen-co deine Not Available Not Available Not Available levothyro xine 75 mcg tablet active Not Available Not Available Not Available erythromy greg 250 mg tablet 11/02 completed Medicati on ID: [id number] Du ration Value: 7 Reason: () Brand [...] mcg tablet 04/07 completed Medicati on ID: [id number] Du ration Value: 90 Reason: () Brand [...] mg capsule 04/07 completed Medicati on ID: [id number] D uration Value: 90 Reason: () Brand [...] aerosol inhaler 2018 active Medicati on ID: [id number] D uration Value: 75 Brand Name: albutero [...] aerosol inhaler 2018 active Medicati on ID: [id number] D uration Value: 90 Brand Name: Flovent [...] Updated DateTime 08/10/2024 152.4 cm 27.3 kg/m2 40080.93 g Manjula Massey [place] - [facility] 08/10/2024 15:12:39 Social History None recorded. Functional Status None recorded. Mental Status None recorded. Family History Nothing Reported. Medical History No medical history recorded. Gynecological HistoryNo gynecological history recorded. Obstetrics History GPAL:G 0 P 0 0 0 0 Past Encounters Encounter ID Performer Location Encounter Start Date Encounter Closed Date Diagnosis/Indication Diagnosis SNOMED-CT Code Diagnosis ICD10 Code [id number] JESUSITA DEL ANGEL MD [facility] [address] [address] 08/10/2024 15:03:18 08/10/2024 15:20:31 Impacted cerumen of bilateral ears [id number] 031688 H61.23 Health Concerns Section Related Observation LastModified [...] with her hearing aids. JESUSITA HARRIS MD [address] [place] [address], [address], [place] - [facility] 08/10/2024 16:30:04 OBGyn Episode No OBEpisode recorded.
--- OUTSIDE RECORDS SUMMARY | 2024-10-12 08:50 | XMS_ITS | Continuity of Care Document ---
Demographics Address [address] [place] [address] Home Phone Mobile Phone Work Phone Email Address Preferred Language en Marital Status Unknown Mandaeism Affiliation Unknown Race White Ethnic Group Not or Lati no Author Organization [place] - [facility], [facility] Address [address] [place] [address] Care Team Providers Care Bobbin Winder Name Role Phone JAVAD CABRERA Primary Care [...] Not Available [facility] 4 02:56:41 Impacted cerumen 25062092 Active 2013 Impacted cerumen; Note: Date Diagnosed : 4 12:39 PM (380.4) Not Available [facility] 4 02:56:43 Impacted cerumen in right ear 81607389478 38185 Active 2016 Impacted cerumen, right ear; Note: Date Diagnosed : 10/29/2016 1:32 PM (H61.21) Not Available [facility] 4 02:56:43 Mixed conductiv e and sensorine ural hearing loss of left ear 28966013990 107 Active 2015 Mixed conductiv e and sensorine ural hearing loss, unilatera l, left ear, with unrestric flavia hearing on the contralat eral side; Note: Date Diagnosed : 11/02/2015 3:00 PM (H90.72) Not Available [facility] 4 02:56:41 Allergic rhinitis 88883010 Active 2015 Allergic rhinitis, unspecifi ed; Note: Date Diagnosed : 04/19/2016 9:48 AM (J30.9) Not Available [facility] 4 02:56:42 Referred otalgia 68124831 Active 2013 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; Note: Date Diagnosed : 4 12:39 PM (388.72) Not Available [facility] 4 02:56:42 Pain of right temporoma ndibular joint 03785553986 749940 Active 2016 Arthralgi a of right temporoma ndibular joint; Note: Date Diagnosed : 10/29/2016 1:32 PM (M26.621) Not Available [facility] 4 02:56:42 Conductiv e hearing loss 89511784 Active 2015 Conductiv e hearing loss, unilatera l, left ear, with unrestric flavia hearing on the contralat eral side; Note: Date Diagnosed : 11/02/2015 1:22 PM (H90.12) Not Available [facility] 4 02:56:41 Impacted cerumen of bilateral ears 11842569629 69426 Active 2015 Impacted cerumen, bilateral ; Condition : recurrent Note: Date Diagnosed : 09/13/2015 10:51 AM (H61.23) Impacte d cerumen, bilateral ; Condition : recurrent Note: Date Diagnosed : 04/15/2018 9:44 AM (H61.23) Not Available [facility] 4 02:56:40 Problem Notes None recorded. Procedures Surgical History Date Name Laterality Status Provider Name and Address Organization Details Recorded Time 4 Cerumen removal without microscope bilat completed EDDIE RDZ PA-C [address] [place] [address],[address], [address], [facility] 08/10/2024 15:18:48 Imaging Results None recorded. Procedure Notes None recorded. Medical Equipment None Reported. Allergies Allergen ID Allergen Name Allergen Category Reaction Reaction Severity Criticality Documentation Date Start Date Code Code System Note Provider Name and Address Organization Details Recorded Time 97091 penicilli n V potassium medicatio n other Not available Not available 02/25/202476005 5 RxNorm React ion: unkno wn, unspe cifie d;; Not Available [facility] 4 01:05:11 31888 Substance with sulfonami de structure and antibacte rial mechanism of action (substanc e) medicatio n other Not available Not available 02/25/2024 36312 8003 SNOMED React ion: unkno wn, unspe cifie d;; Not Available [facility] 4 01:05:11 Medications Name Sig Start Date Stop Date Status Note LastModified by Organization Details LastModified Time gabapenti n 600 mg tablet 2018 active Medicati on ID: [id number] D uration Value: 90 Brand Name: gabapent [...] mg tablet 11/02 completed Medicati on ID: 77815 Du ration Value: 2 Reason: () Brand Name: acetamin ophen-co deine Se nd Method: E-Prescr ibed Sub s Allowed: subs OK Medic ationGen ericName : acetamin ophen-co deine Not Available Not Available Not Available levothyro xine 75 mcg tablet active Not Available Not Available Not Available erythromy greg 250 mg tablet 11/02 completed Medicati on ID: 21793 Du ration Value: 7 Reason: () Brand [...] mcg tablet 04/07 completed Medicati on ID: 12135 Du ration Value: 90 Reason: () Brand [...] mg capsule 04/07 completed Medicati on ID: [id number] D uration Value: 90 Reason: () Brand [...] aerosol inhaler 2018 active Medicati on ID: [id number] D uration Value: 75 Brand Name: albutero [...] aerosol inhaler 2018 active Medicati on ID: [id number] D uration Value: 90 Brand Name: Flovent [...] Updated DateTime 08/10/2024 152.4 cm 27.3 kg/m2 75625.93 g Manjula Massey [place] - [facility] 08/10/2024 15:12:39 Social History None recorded. Functional Status None recorded. Mental Status None recorded. Family History Nothing Reported. Medical History No medical history recorded. Gynecological HistoryNo gynecological history recorded. Obstetrics History GPAL:G 0 P 0 0 0 0 Past Encounters Encounter ID Performer Location Encounter Start Date Encounter Closed Date Diagnosis/Indication Diagnosis SNOMED-CT Code Diagnosis ICD10 Code [id number] JESUSITA DEL ANGEL MD [facility] [address] [address] 08/10/2024 15:03:18 08/10/2024 15:20:31 Impacted cerumen of bilateral ears [id number] 619783 H61.23 Health Concerns Section Related Observation LastModified [...] with her hearing aids. JESUSITA HARRIS MD [address] [place] [address], [address], [facility] - [facility] 08/10/2024 16:30:04 OBGyn Episode No OBEpisode recorded.
[2024-10-12 08:55] VITALS: BP 134/63; PULSE 62; O2SAT 97; BMI 27.7
== END 2024-10-12 09:23 | disposition home or self-care (01) ==
PROVIDERS: PCP Student in an Organized Health Care Education/Training Program; Visit Provider Nurse Practitioner Family
DX: M25.562 Pain in left knee (principal); M47.816 Spondylosis without myelopathy or radiculopathy, lumbar region; M54.50 Low back pain, unspecified; M51.369 Other intervertebral disc degeneration, lumbar region without mention of lumbar back pain or lower extremity pain; M53.3 Sacrococcygeal disorders, not elsewhere classified
CPT/HCPCS: 99214

== ENCOUNTER 2024-11-05 06:17 | Outpatient (REF) | payer OTHER, SELFPAY ==
--- NOTE | ~2024-11-05 | FL_ITS ---
EXAMINATION: FL GUIDANCE ONLY HISTORY: M47.816 - Spondylosis without myelopathy or radiculopathy, lumbar region COMPARISON: None available. TECHNIQUE: Fluoroscopy time: 0.1 minute. Cumulative Dose: 1.74 mGy. DAP: 0.0185 uGy-m2 (microgray-meter squared). Images: 2. FINDINGS: Images demonstrate needles and contrast material in the regions of the bilateral L3-4, L4-5, and L5-S1 facet joints. FL/FL guidance in treatment room IMPRESSION: Fluoroscopy during procedure. Please see procedure report for additional information. Electronically signed by: Keaton Deng MD 11/05/2024 02:51 PM [facility] [place] [facility] [place]
== END 2024-11-05 06:18 | disposition home or self-care (01) ==
LOC: CF 06:17
PROVIDERS: Visit Provider Internal Medicine
DX: M47.816 Spondylosis without myelopathy or radiculopathy, lumbar region (principal)
CPT/HCPCS: 64493; 64494; J2003; J2795; Q9967

== ENCOUNTER 2024-11-05 09:22 | Outpatient (AMB) | payer OTHER, SELFPAY ==
[2024-11-05 09:45] VITALS: BP 92/59; PULSE 56; BMI 27.7
--- NOTE | 2024-11-05 09:45 | A.OFFVIS_ITS ---
Vital Signs 11/05/24 09:45 Height 5 ft Weight 142 lb BMI 27.7 BP 92/59 L Blood Pressure Location Lt brachial Position Sitting Pulse 56 Pulse Source Pulse Oximeter Intake Visit Reasons: Zeus Dx L3-L4-DR-L5 MBB Document Advisor Required: No Allergies penicillin V Allergy (Intermediate, Verified 11/05/24 09:46) rash Sulfacet-R Allergy (Intermediate, Uncoded 11/05/24 09:46) trouble breathing Medication List - Last Reconciled 11/05/[address] [place], PNEUMATIC [employer]ER acetaminophen ER (Tylenol Arthritis Pain) 650 mg PO Q12H calcium carbonate 600 mg PO DAILY celecoxib (Celebrex) 100 mg PO BID cholecalciferol (vitamin D3) 10 mcg PO DAILY cholecalciferol (vitamin D3) (Vitamin D3) 10 mcg PO DAILY docusate sodium (Colace) 100 mg PO TID fluticasone propionate 50 mcg/actuation 1 spray intranasal DAILY fluticasone propionate 100 mcg/actuation (Flovent Diskus) 1 inh inhalation BID hydroxychloroquine (Plaquenil) 200 mg PO DAILY inulin (Fiber Gummies) grams PO lactobacillus combination no.9 (Adult 50 Plus Probiotic) 4,000 mmu cells PO DAILY levothyroxine 100 mcg PO DAILY magnesium 250 mg PO DAILY melatonin 10 mg PO BEDTIME PRN montelukast (Singulair) 10 mg PO DAILY omeprazole 20 mg PO DAILY paroxetine HCl 40 mg PO DAILY Post menopausal: Yes HPI HPI Zeus Dx L3-L4-DR-L5 MBB: Details: Patient presents for scheduled procedure. Denies any recent cough, cold, infection, fever or other significant changes in medical history since last office visit. [facility] Medical History (Updated 10/12/24 @ 09:11 by HONG Christian) Seasonal allergies Left knee pain Endometriosis Epidermoid cyst Fibromyalgia Asthma Deafness in left ear Osteoarthritis Low back pain Lumbar spondylosis Disc degeneration, lumbar Polyarthralgia Surgical History (Updated 10/12/24 @ 09:11 by HONG Christian) History of appendectomy History of ear surgery Social History Alcohol intake: never Physical Exam Vital Signs: Last Vital Signs Pulse 56 11/05/24 09:45 BP 92/59 L 11/05/24 09:45 BMI result Body Mass Index 27.7 Office Procedures Lumbar/Sacral Facet Inj Details: Diagnostic Lumbar Medial Branch Block, bilateral L3, L4 medial branches and L5 Dorsal Ramus (2 levels, 3 nerves) After obtaining written consent, pre-procedure blood pressure and pulse were recorded and are in the nursing record for review. The patient was placed in a prone position. The respective lumbosacral area was prepped with chloraprep and draped in sterile fashion. The skin over the target medial branch nerves was anesthetized with 0.5% lidocaine. A 22 gauge 3.5 inch needle was inserted into the target medial branch nerve under fluoroscopic guidance. No paresthesias were elicited with needle placement and aspiration was negative for blood and CSF. Next, 0.2cc of omnipaque 180 was injected to verify positioning. Next 0.5 ml 0.5% ropivicaine was injected (0.5cc total per level). The identical procedure was performed at the remaining levels. The skin was cleansed and a sterile bandage was applied. Following the procedure the patient's vital signs were stable. The patient tolerated the procedure well and no complications were encountered. Following the procedure the patient's vital signs were stable. The patient was discharged home in good condition with post-procedural instructions. Time Out: Immediately prior to the procedure, the following was verbally confirmed that there is a signed consent form and that the correct patient, planned procedure, site and side are consistent with documentation and that necessary equipment and/or blood products are available prior to the start of the case. Complications: none EBL: <5 cc 55410 - with Fluoroscopy 36901 - second level, with Fluoroscopy Procedure code (CPT) selection complete Assessment & Plan Assessment & Plan (1) Lumbar spondylosis: Code(s): M47.816 - Spondylosis without myelopathy or radiculopathy, lumbar region Category: Medical Plan Patient is status post bilateral diagnostic lumbar medial branch blocks. Patient tolerated procedure well and was discharged home in stable condition with discharge instructions. All questions were answered. We will follow-up via telephone or in clinic to assess response to therapy. A follow-up appointment was made during today's visit. Orders: Orders FL guidance in treatment room Today M47.816 - Spondylosis without myelopathy or radiculopathy, lumbar region Coding Level of Care Code Procedure Only Diagnoses Lumbar spondylosis M47.816 CPT Codes Facet Injection-Lumbar/Sacral - CPT: 38327 - with Fluoroscopy ([id number]) Facet Injection-Lumbar/Sacral - CPT: 97579 - second level, with Fluoroscopy ([id number])
--- OUTSIDE RECORDS SUMMARY | 2024-11-05 10:25 | XMS_ITS | Data Portability ---
Demographics Address [address] [place] [address] Home Phone Mobile Phone Work Phone Email Address Preferred Language en Marital Status Unknown Holiness Affiliation Unknown Race White Ethnic Group Not or Lati no Author Organization [place] - [facility], Allergy Address [address] [address] Care Team Providers Care Metal Fence Erector Name Role Phone JAVAD CABRERA Primary Care [...] Not Available [facility] 4 02:56:41 Impacted cerumen 69095103 Active 2013 Impacted cerumen; Note: Date Diagnosed : 4 12:39 PM (380.4) Not Available [facility] 4 02:56:43 Impacted cerumen in right ear 75033984558 31431 Active 2016 Impacted cerumen, right ear; Note: Date Diagnosed : 10/29/2016 1:32 PM (H61.21) Not Available [facility] 4 02:56:43 Mixed conductiv e and sensorine ural hearing loss of left ear 58023118729 107 Active 2015 Mixed conductiv e and sensorine ural hearing loss, unilatera l, left ear, with unrestric flavia hearing on the contralat eral side; Note: Date Diagnosed : 11/02/2015 3:00 PM (H90.72) Not Available [facility] 4 02:56:41 Allergic rhinitis 69765877 Active 2015 Allergic rhinitis, unspecifi ed; Note: Date Diagnosed : 04/19/2016 9:48 AM (J30.9) Not Available [facility] 4 02:56:42 Referred otalgia 34049472 Active 2013 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; Note: Date Diagnosed : 4 12:39 PM (388.72) Not Available [facility] 4 02:56:42 Pain of right temporoma ndibular joint 18275986014 285973 Active 2016 Arthralgi a of right temporoma ndibular joint; Note: Date Diagnosed : 10/29/2016 1:32 PM (M26.621) Not Available [facility] 4 02:56:42 Conductiv e hearing loss 14630614 Active 2015 Conductiv e hearing loss, unilatera l, left ear, with unrestric flavia hearing on the contralat eral side; Note: Date Diagnosed : 11/02/2015 1:22 PM (H90.12) Not Available [facility] 4 02:56:41 Impacted cerumen of bilateral ears 64008952167 11467 Active 2015 Impacted cerumen, bilateral ; Condition : recurrent Note: Date Diagnosed : 09/13/2015 10:51 AM (H61.23) Impacte d cerumen, bilateral ; Condition : recurrent Note: Date Diagnosed : 04/15/2018 9:44 AM (H61.23) Not Available [facility] 4 02:56:40 Problem Notes None recorded. Procedures Surgical History Date Name Laterality Status Provider Name and Address Organization Details Recorded Time 4 Cerumen removal without microscope bilat completed EDDIE RDZ PA-C [address] [place] [address],[address], [address], [facility] 08/10/2024 15:18:48 Imaging Results None recorded. Procedure Notes None recorded. Medical Equipment None Reported. Allergies Allergen ID Allergen Name Allergen Category Reaction Reaction Severity Criticality Documentation Date Start Date Code Code System Note Provider Name and Address Organization Details Recorded Time 03454 penicilli n V potassium medicatio n other Not available Not available 02/25/202401980 5 RxNorm React ion: unkno wn, unspe cifie d;; Not Available [facility] 4 01:05:11 14690 Substance with sulfonami de structure and antibacte rial mechanism of action (substanc e) medicatio n other Not available Not available 02/25/2024 47232 8003 SNOMED React ion: unkno wn, unspe cifie d;; Not Available [facility] 4 01:05:11 Medications Name Sig Start Date Stop Date Status Note LastModified by Organization Details LastModified Time gabapenti n 600 mg tablet 2018 active Medicati on ID: [id number] D uration Value: 90 Brand Name: gabapent [...] mg tablet 11/02 completed Medicati on ID: 88865 Du ration Value: 2 Reason: () Brand Name: acetamin ophen-co deine Se nd Method: E-Prescr ibed Sub s Allowed: subs OK Medic ationGen ericName : acetamin ophen-co deine Not Available Not Available Not Available levothyro xine 75 mcg tablet active Not Available Not Available Not Available erythromy greg 250 mg tablet 11/02 completed Medicati on ID: 32467 Du ration Value: 7 Reason: () Brand [...] mcg tablet 04/07 completed Medicati on ID: 41160 Du ration Value: 90 Reason: () Brand [...] mg capsule 04/07 completed Medicati on ID: [id number] D uration Value: 90 Reason: () Brand [...] aerosol inhaler 2018 active Medicati on ID: 332431 D uration Value: 75 Brand Name: albutero [...] aerosol inhaler 2018 active Medicati on ID: [id number] D uration Value: 90 Brand Name: Flovent [...] Updated DateTime 08/10/2024 152.4 cm 27.3 kg/m2 49669.93 g Manjula Massey [place] - [facility] 08/10/2024 15:12:39 Social History None recorded. Functional Status None recorded. Mental Status None recorded. Family History Nothing Reported. Medical History No medical history recorded. Gynecological HistoryNo gynecological history recorded. Obstetrics History GPAL:G 0 P 0 0 0 0 Past Encounters Encounter ID Performer Location Encounter Start Date Encounter Closed Date Diagnosis/Indication Diagnosis SNOMED-CT Code Diagnosis ICD10 Code Diagnosis Note [id number] JESUSITA DEL ANGEL MD [facility] [address] [address] 08/10/2024 15:03:18 08/10/2024 15:20:31 Impacted cerumen of bilateral ears [id number] 305919 H61.23 Health Concerns Section Related Observation LastModified [...] otorrhea, and trouble with her hearing aids. JESUSIAT HARRIS MD [address] [place] [address], [address], [facility] - [facility] 08/10/2024 16:30:04 OBGyn Episode No OBEpisode recorded.
== END 2024-11-05 10:13 | disposition home or self-care (01) ==
LOC: HO.PMCPRC 09:22
PROVIDERS: PCP Student in an Organized Health Care Education/Training Program; Visit Provider Internal Medicine
DX: M47.816 Spondylosis without myelopathy or radiculopathy, lumbar region (principal)
CPT/HCPCS: 64493; 64494

== ENCOUNTER 2024-11-09 08:57 | Outpatient (AMB) | payer OTHER, SELFPAY ==
--- NOTE | 2024-11-09 08:59 | A.OFFVIS_ITS ---
Vital Signs 11/09/24 09:01 Height 5 ft Weight 149 lb BMI 29.1 BP 126/83 Blood Pressure Location Lt brachial Position Sitting Respiration 16 Pulse 59 Pulse Source Pulse Oximeter Pulse Oximetry (%) 96 Oxygen Delivery Method Room Air Intake Visit Reasons: s/p james Dx L3-L4-DR-L5 MBB Allergies penicillin V Allergy (Intermediate, Verified 11/09/24 09:02) rash Sulfacet-R Allergy (Intermediate, Uncoded 11/09/24 09:02) trouble breathing Medication List - Last Reconciled 11/09/24 by Angela Rhoades LPN acetaminophen ER (Tylenol Arthritis Pain) 650 mg PO Q12H calcium carbonate 600 mg PO DAILY celecoxib (Celebrex) 100 mg PO BID cholecalciferol (vitamin D3) 10 mcg PO DAILY docusate sodium (Colace) 100 mg PO TID fluticasone propionate 50 mcg/actuation 1 spray intranasal DAILY fluticasone propionate 100 mcg/actuation (Flovent Diskus) 1 inh inhalation BID hydroxychloroquine (Plaquenil) 200 mg PO DAILY inulin (Fiber Gummies) grams PO lactobacillus combination no.9 (Adult 50 Plus Probiotic) 4,000 mmu cells PO DAILY levothyroxine 100 mcg PO DAILY melatonin 10 mg PO BEDTIME PRN montelukast (Singulair) 10 mg PO DAILY omeprazole 20 mg PO DAILY paroxetine HCl 20 mg PO DAILY HPI HPI s/p james Dx L3-L4-DR-L5 MBB: Details: History of Present Illness The patient is a 59-year-old female presenting with axial low back pain. She has a history of sacroiliac joint pain and underwent diagnostic sacroiliac joint injections in the past, which were not effective. Recently, she had diagnostic bilateral lower lumbar medial branch blocks, and this follow-up visit is to assess their efficacy. The pain primarily bothers her more since the procedure and does not seem to involve the spine itself but rather the tissues along the spine. The pain impacts her daily activities, and previous interventions like sacroiliac joint injections have not provided relief. Pain Description - Onset/timing: Pain in the axial low back area. - Location: Along the tissues near the spine. - Exacerbating factors: None explicitly mentioned. - Relieving factors: Consideration of massage therapy, deep tissue massage, or myofascial release. - Interference: Affects daily activities and is bothersome. Physical Exam Results - Diagnostic sacroiliac joint injections: Not helpful. - Bilateral lower lumbar medial branch blocks: Status post-injection, increased pain. Pain Management - Affect: Pain is bothersome and affects the patient's mood. - Analgesia: Prior interventions like sacroiliac joint injections and medial branch blocks; current pain post-procedure. - Adverse Effects: None mentioned from current pain management strategies. - Activities of Daily Living: Pain interferes with regular activities. - Aberrant Drug Related Behaviors: None reported. [facility] Medical History (Updated 11/17/24 @ 16:02 by Dheeraj Joy MD) Seasonal allergies Left knee pain Endometriosis Epidermoid cyst Fibromyalgia Asthma Deafness in left ear Osteoarthritis Low back pain Lumbar spondylosis Disc degeneration, lumbar Polyarthralgia Surgical History (Updated 10/12/24 @ 09:11 by HONG Christian) History of appendectomy History of ear surgery Social History Alcohol intake: never Physical Exam Vital Signs: Last Vital Signs Pulse 59 11/09/24 09:01 Resp 16 11/09/24 09:01 BP 126/83 11/09/24 09:01 Pulse Ox 96 11/09/24 09:01 Oxygen Delivery Method Room Air 11/09/24 09:01 BMI result Body Mass Index 29.1 Assessment & Plan Assessment & Plan (1) Myofascial pain: Code(s): M79.18 - Myalgia, other site Category: Medical Plan Plan - Refer for massage therapy, including deep tissue massage and myofascial release, to address the myofascial component of her pain. - Consider trigger point injections on an as-needed basis in case of worsening symptoms. - Schedule a follow-up appointment in three months to evaluate progress and consider non-injection therapies or peripheral nerve stimulation if necessary. Patient was informed and verbally consented to the use of an ambient scribe for clinic note documentation during this visit. Discussion Notes During the consultation, I explained to the patient that given the ineffectiveness of previous injections, we will first focus on therapies like deep tissue massage and myofascial release to alleviate the myofascial component of her pain. I discussed the option of trigger point injections for exacerbations. Acupuncture was also deemed acceptable if she wants to explore it. We will reconvene in three months to assess progress or the need for alternative treatments, potentially including peripheral nerve stimulation. I advised caution about online resources for massage technique and encouraged consulting professionals for appropriate guidance. Patient Instructions - Explore deep tissue massage or myofascial release as treatment options. - Consider acupuncture if interested and check insurance coverage. - Schedule a follow-up appointment in three months. - Contact healthcare provider if symptoms significantly worsen or new symptoms develop. - Consult with professionals before trying new pain relief techniques at home. Coding Level of Care Code Est Pt Level 3 (96810) Diagnoses Myofascial pain M79.18
[2024-11-09 09:01] VITALS: BP 126/83; PULSE 59; RESP 16; O2SAT 96; BMI 29.1
--- OUTSIDE RECORDS SUMMARY | 2024-11-09 13:17 | XMS_ITS | Encounter Summary ---
Author Organization [facility] [employer] [facility] Address [address] [place] [address] Care Team Providers Care News Cameraman Name Role Phone Diann Schwarz Primary Care Provider [phone] Diann Schwarz Unavailable [phone] Mirna Meza Primary Care Provider [phone] Encounter Details Date Type Department Care Team (Late st Contact Info) Description 11/06/2022 Orders Only [facility] [address] [place] [phone] Diann Schwarz FNP [address] [place] [address] Social History Tobacco Use Types Packs/Day Years Used Date Smoking Tobacco: Never Assessed Comments Unknown Sex and Gender Information Value Date Recorded Sex Assigned at Female 09/28/2022 1:04 PM EST Legal Sex Female 6:21 PM EDT Gender Identity Female 08/10/2022 6:21 PM EDT Sexual Orientation Straight 08/10/2022 6: 21 PM EDT documented as of this encounter Plan of Treatment Not on file documented as of this encounter Visit Diagnoses Not on filedocumented in this encounter Care Teams News Cameraman Relationship Specialty Start Date End Date Diann Schwarz FNP [address] [place] [address] PCP - General Family Medicine 08/10/22 12/03/22 Mirna Meza FNP [address] [place] [address] PCP - General Family Medicine 12/04/22 Diann Schwarz FNP [address] [place] [address] Family Medicine 08/10/22 documented as of this encounter
--- OUTSIDE RECORDS SUMMARY | 2024-11-09 13:17 | XMS_ITS | Encounter Summary ---
Author Organization [employer] Address [address] [facility] [address] [place] [address] Care Team Providers Care Charge Preparation Technician Name Role Phone Diann Schwarz CASH MANAGEMENT CLERK Unavailable [phone] Mirna Meza Primary Care Provider [phone] Encounter Details Date Type Department Care Team (Late st Contact Info) Description 12/04/2023 Abstract [facility] [address] [place] [phone] Mirna Meza FNP [address] [place] [address] Social History Tobacco Use Types Packs/Day Years Used Date Smoking Tobacco: Never Passive Smoke Exposure: Never Smokeless Tobacco: Never Comments:Grew up with second hand smoke Alcohol Use Standard Drinks/Week Comments Not Currently 0 (1 standard drink = 0.6 oz pur e alcohol) Housing Stability Answer Date Recorded What is your housing situation today? I have bobby crowell 07/29/[address] you li ve. Do you have problems with any of the following? None of the above 07/29/2023 Food Insecurity Answer Date Recorded Within the past 12 months, y ou worried that your food would run out before you got money to buy more: Never True 07/29/2023 Within the past 12 months,th e food you bought just didn't last and you didn't have enough money to get more: Never True Transportation Answer Date Recorded In the past 12 months, has l ack of transportation kept you from medical appts, meetings, work or from getting things needed for daily living? No 07/29/2023 Utilities Answer Date Recorded In the past 12 months, has t he electric, gas, oil or water company threatened to shut off services in your home? No 07/29/2023 Depression Answer Date Recorded Patient Health Questionnaire-2 Score 0 12/04/2022 Comments Unknown Sex and Gender Information Value Date Recorded Sex Assigned at Female 09/28/2022 1:04 PM EST Legal Sex Female 6:21 PM EDT Gender Identity Female 08/10/2022 6:21 PM EDT Sexual Orientation Straight 08/10/2022 6: 21 PM EDT documented as of this encounter Plan of Treatment Not on file documented as of this encounter Procedures Procedure Name Priority Date/Time Associated Diagnosis Comments COLONOSCOPY Routine 11/22/2023 documented in this encounter Results * Colonoscopy (11/22/2023) Colonoscopy Normal Normal Comment:INTERNAL HEMORRHOIDS , POLYPS REMOVED, MILD DIVERTICULOSIS NOTED ON EXAM Historical Provider HEALTH MAINTENANCE Final Result documented in this encounter Visit Diagnoses Not on filedocumented in this encounter Care Teams Charge Preparation Technician Relationship Specialty Start Date End Date Mirna Meza FNP [address] [place] [address] PCP - General Family Medicine 12/04/22 Diann Schwarz FNP [address] [place] [address] Family Medicine 08/10/22 documented as of this encounter
--- OUTSIDE RECORDS SUMMARY | 2024-11-09 13:17 | XMS_ITS | Data Portability ---
Demographics Address [address] [place] [address] Home Phone Mobile Phone Work Phone Email Address . om Preferred Language en Marital Status Unknown Protestant Affiliation Unknown Race White Ethnic Group Not or Lati no Author Organization [place] [facility] Address [address] [address] Care Team Providers Care Rivet Hammer Machine Operator Name Role Phone JAVAD CABRERA Primary Care [...] Not Available [facility] 4 02:56:41 Impacted cerumen 26833941 Active 2013 Impacted cerumen; Note: Date Diagnosed : 4 12:39 PM (380.4) Not Available [facility] 4 02:56:43 Impacted cerumen in right ear 76809902786 96222 Active 2016 Impacted cerumen, right ear; Note: Date Diagnosed : 10/29/2016 1:32 PM (H61.21) Not Available [facility] 4 02:56:43 Mixed conductiv e and sensorine ural hearing loss of left ear 38296769544 107 Active 2015 Mixed conductiv e and sensorine ural hearing loss, unilatera l, left ear, with unrestric flavia hearing on the contralat eral side; Note: Date Diagnosed : 11/02/2015 3:00 PM (H90.72) Not Available [facility] 4 02:56:41 Allergic rhinitis 72927169 Active 2015 Allergic rhinitis, unspecifi ed; Note: Date Diagnosed : 04/19/2016 9:48 AM (J30.9) Not Available [facility] 4 02:56:42 Referred otalgia 95263025 Active 2013 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; Note: Date Diagnosed : 4 12:39 PM (388.72) Not Available [facility] 4 02:56:42 Pain of right temporoma ndibular joint 84820589394 223085 Active 2016 Arthralgi a of right temporoma ndibular joint; Note: Date Diagnosed : 10/29/2016 1:32 PM (M26.621) Not Available [facility] 4 02:56:42 Conductiv e hearing loss 03742003 Active 2015 Conductiv e hearing loss, unilatera l, left ear, with unrestric flavia hearing on the contralat eral side; Note: Date Diagnosed : 11/02/2015 1:22 PM (H90.12) Not Available [facility] 4 02:56:41 Impacted cerumen of bilateral ears 27241320922 22946 Active 2015 Impacted cerumen, bilateral ; Condition : recurrent Note: Date Diagnosed : 09/13/2015 10:51 AM (H61.23) Impacte d cerumen, bilateral ; Condition : recurrent Note: Date Diagnosed : 04/15/2018 9:44 AM (H61.23) Not Available [facility] 4 02:56:40 Problem Notes None recorded. Procedures Surgical History Date Name Laterality Status Provider Name and Address Organization Details Recorded Time 4 Cerumen removal without microscope bilat completed EDDIE RDZ PA-C [address] [place] [address],[address], [address], [facility] 08/10/2024 15:18:48 Imaging Results None recorded. Procedure Notes None recorded. Medical Equipment None Reported. Allergies Allergen ID Allergen Name Allergen Category Reaction Reaction Severity Criticality Documentation Date Start Date Code Code System Note Provider Name and Address Organization Details Recorded Time 20351 penicilli n V potassium medicatio n other Not available Not available 02/25/202426967 5 RxNorm React ion: unkno wn, unspe cifie d;; Not Available [facility] 4 01:05:11 83997 Substance with sulfonami de structure and antibacte rial mechanism of action (substanc e) medicatio n other Not available Not available 02/25/2024 53708 8003 SNOMED React ion: unkno wn, unspe cifie d;; Not Available [facility] 4 01:05:11 Medications Name Sig Start Date Stop Date Status Note LastModified by Organization Details LastModified Time gabapenti n 600 mg tablet 2018 active Medicati on ID: [id number] D uration Value: 90 Brand Name: gabapent [...] mg tablet 11/02 completed Medicati on ID: 10209 Du ration Value: 2 Reason: () Brand Name: acetamin ophen-co deine Se nd Method: E-Prescr ibed Sub s Allowed: subs OK Medic ationGen ericName : acetamin ophen-co deine Not Available Not Available Not Available levothyro xine 75 mcg tablet active Not Available Not Available Not Available erythromy greg 250 mg tablet 11/02 completed Medicati on ID: 38562 Du ration Value: 7 Reason: () Brand [...] mcg tablet 04/07 completed Medicati on ID: 28695 Du ration Value: 90 Reason: () Brand [...] mg capsule 04/07 completed Medicati on ID: 541930 D uration Value: 90 Reason: () Brand [...] aerosol inhaler 2018 active Medicati on ID: [id number] D uration Value: 75 Brand Name: albutero [...] aerosol inhaler 2018 active Medicati on ID: 318303 D uration Value: 90 Brand Name: Flovent [...] Updated DateTime 08/10/2024 152.4 cm 27.3 kg/m2 97536.93 g Manjula Massey [place] - [facility] 08/10/2024 15:12:39 Social History None recorded. Functional Status None recorded. Mental Status None recorded. Family History Nothing Reported. Medical History No medical history recorded. Gynecological HistoryNo gynecological history recorded. Obstetrics History GPAL:G 0 P 0 0 0 0 Past Encounters Encounter ID Performer Location Encounter Start Date Encounter Closed Date Diagnosis/Indication Diagnosis SNOMED-CT Code Diagnosis ICD10 Code Diagnosis Note [id number] JESUSITA DEL ANGEL MD [facility] [address] [address] 08/10/2024 15:03:18 08/10/2024 15:20:31 Impacted cerumen of bilateral ears [id number] H61.23 Health Concerns Section Related Observation LastModified [...] with her hearing aids. JESUSITA HARRIS MD [address] [place] [address], [address], [facility] - [facility] 08/10/2024 16:30:04 OBGyn Episode No OBEpisode recorded.
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
--- OUTSIDE RECORDS SUMMARY | 2024-11-09 13:17 | XMS_ITS | Encounter Summary ---
Author Organization [facility] [employer] [facility] Address [address] [place] [address] Care Team Providers Care Transformation Coach Name Role Phone Diann Schwarz VEHICLE CARE SPECIALIST Primary Care Provider [phone] Diann Schwarz VEHICLE CARE SPECIALIST Unavailable [phone] Minra Meza VEHICLE CARE SPECIALIST Primary Care Provider [phone] Encounter Details Date Type Department Care Team (Late st Contact Info) Description 09/04/2022 Abstract [facility] [address] [place] [phone] Pauline Morel [address] [place] [address] Social History Tobacco Use Types Packs/Day Years [...] on filedocumented in this encounter Care Teams Transformation Coach Relationship Specialty Start Date End Date Diann Schwarz FNP [address] [place] [address] PCP - General Family Medicine 08/10/22 12/03/22 Mirna Meza FNP [address] [place] [address] PCP - General Family Medicine 12/04/22 Diann Schwarz FNP [address] [place] [address] Family Medicine 08/10/22 documented as of this encounter
--- OUTSIDE RECORDS SUMMARY | 2024-11-09 13:17 | XMS_ITS | Encounter Summary ---
Author Organization [employer] Address [address] [facility] [address] [place] [address] Care Team Providers Care Meat And Seafood Manager Name Role Phone Schwarz, Diann COMPACT ASSEMBLER Unavailable [phone] Mirna Meza Primary Care Provider [phone] Encounter Details Date Type Department Care Team (Late st Contact Info) Description 12/26/2023 Telephone [facility] [address] [facility] [address] [place] [address] Mirna Meza FNP [address] [place] [address] Social History Tobacco Use Types Packs/Day Years [...] as of this encounter Miscellaneous Notes * Telephone Encounter - Jillian Ham - 12/26/2023 4:07 PM EDT Sent to [facility] * Telephone Encounter - Dom Townsend - 12/26/2023 3:56 PM EDT Patient left a message about her prescription of rOPINIRole (Requip) 2 MG tablet, she wants to makesure we send it to the [facility] in [place] and not the [facility] service because if [facility] gets it she will be unable to get it at the [facility] documented in this encounter Plan of Treatment Not on file documented as of this encounter Visit Diagnoses Not on filedocumented in this encounter Care Teams Meat And Seafood Manager Relationship Specialty Start Date End Date Mirna Meza FNP [address] [place] [address] PCP - General Family Medicine 12/04/22 Diann Schwarz FNP [address] [place] [address] Family Medicine 08/10/22 documented as of this encounter
--- OUTSIDE RECORDS SUMMARY | 2024-11-09 13:17 | XMS_ITS | Clinical Summary ---
Author Organization [employer] [facility] Address [address] [place] [address] 7 [place] [address] Care Team Providers Care Proof Inspector Name Role Phone Diann Schwarz ASPHALT BLENDER Unavailable [phone] Mirna Meza ASPHALT BLENDER Primary Care Provider [phone] Allergies Active Allergy Reactions Criticality Noted Date Comments Alimentum Headache,Runny nose 11/14/2023 Cyclobenzaprine Low 04/23/2022 Other reaction(s): Dry Mouth, Joint Pain, Sweating Gluten Meal 09/04/2023 Other 04/23/2024 Cassava- sweating, chills, vomiting. Tapioca- sweating, chills, vomiting. Penicillins Rash Low 06/25/2013 Other reaction(s): Skin Rashes, Hives Starch 05/22/2024 Sulfa Antibiotics Shortness of breath High 3 Other reaction(s): Asthma, Shortness of Breath Medications * This document contains information received from the source organization and may not represent a complete record from that organization. albuterol 108 (90 Base) MCG/ACT inhaler INHALE 1 TO 2 PUFFS EVERY 4 TO 6 HOURS NEEDED FOR COUGH 07/29/20 22 Active Calcium Carbonate-Vitam in D (Calcium 600 +D High Potency) 600-10 MG-MCG tablet Take by mouth. Active Flovent HFA 44 MCG/ACT inhaler INHALE 2 (TWO) PUFF TWICE DAILY. RINSE MOUTH AFTER USE. 07/08/20 22 Active hydroxychloroqu ine (Plaquenil) 200 MG tablet Take 300 mg by mouth in the morning. 12/02/19 23 Active melatonin 5 MG tablet Take by mouth. Active Acetaminophen (TYLENOL ARTHRITIS PAIN PO) Take by mouth. Active celecoxib (CeleBREX) 100 MG capsuleIndicati ons:Inflammator y arthritis Take 1 capsule (100 mg) by mouth 2 times daily. 60 capsule 12/30/19 23 Active fluticasone (Flonase) 50 MCG/ACT nasal sprayIndication s:Allergic rhinitis, unspecified seasonality, unspecified trigger Administer 1 spray into each nostril in the morning. 42 g 3 10/25/19 24 Active levothyroxine (Synthroid, Levoxyl) 75 MCG tabletIndicatio ns:Madison's thyroiditis TAKE 1 TABLET BY MOUTH BEFORE BREAKFAST 90 tablet 3 01/28/20 24 Active magnesium 250 MG tablet Take by mouth. Active escitalopram (Lexapro) 10 MG tabletIndicatio ns:Generalized anxiety disorder TAKE 1 TABLET (10 MG) BY MOUTH ONCE PER DAY. 90 tablet 1 07/14/20 24 025 Active rOPINIRole (Requip) 3 MG tabletIndicatio ns:RLS (restless legs syndrome) TAKE 1 TABLET BY MOUTH AT BEDTIME 90 tablet 3 07/14/20 24 Active cholecalciferol (Vitamin D-3) 10 MCG (400 UNIT) tabletIndicatio ns:Fibromyalgia TAKE 1 TABLET BY MOUTH EVERY DAY 90 tablet 3 09/15/20 24 Active montelukast (Singulair) 10 MG tabletIndicatio ns:Mild intermittent asthma without complication TAKE 1 TABLET BY MOUTH AT BEDTIME 90 tablet 3 09/22/20 24 Active omeprazole (PriLOSEC) [address] capsuleIndicati ons:Gastroesoph ageal reflux disease without esophagitis TAKE 1 CAPSULE BY MOUTH BEFORE BREAKFAST 90 capsule 3 09/22/20 24 Active PARoxetine (Paxil) 20 MG tabletIndicatio ns:Generalized anxiety disorder Take 1 tablet (20 mg) by mouth in the morning. 90 tablet 3 11/06/19 25 Active PARoxetine (Paxil) 20 MG tabletIndicatio ns:Generalized anxiety disorder Take 1 tablet (20 mg) by mouth in the morning. 90 tablet 08/14/20 24 025 Discontinued(R eorder (will not trigger notification to Pharmacy)) PARoxetine (Paxil) 20 MG tabletIndicatio ns:Generalized anxiety disorder Take 1 tablet (20 mg) by mouth in the morning. 90 tablet 11/04/19 25 025 Discontinued(R eorder (will not trigger notification to Pharmacy)) Active Problems Problem Noted Date Diagnosed Date Fall 05/11/2024 Assessment & Plan (05/11/2024 3:54 PM EDT): - Patient fell down the stairs and twisted right ankle and hit lower back. Experiencing pain in the ankle and side of the foot, difficulty with weight bearing, and stiffness. Mild pain and edema over the lateral malleolus and pain over the dorsal of the foot. Tenderness over 5th toe. Most likely ankle sprain, but would like to evaluate for Fracture. - Will complete right ankle, foot, and lumbar x-rays. Recommendation of rest, icing, activity modification, range of motion exercises, and use of a brace or cast for support. If symptoms persist, consider physical therapy and referral to orthopedics. - Will follow up with imaging results SI (sacroiliac) joint dysfunction 04/23/2024 Food intolerance 04/23/2024 RLS (restless legs syndrome) 02/20/2024 Long-term use of Plaquenil 05/10/202308/01 Overview (08/01/2023): 2016 to current Last Assessment & Plan: VFT 04/2023 nl per patient report History of restless legs syndrome 05/10/2023 08/01/2023 Chronic wrist pain, left 05/10/2023 023 Overview (08/01/2023): Last Assessment & Plan: Dedicated plain film given mild ulnar styloid tenderness and restricted / painful passive range of motion on exam today Morning joint stiffness 05/10/2023 08/01/20 23 Overview (08/01/2023): Last Assessment & Plan: 2 hours AM stiffness w/o objective e/o active inflammatory arthritis; updated labs today Polyarthralgia 05/10/2023 08/01/2023 Overview (08/01/2023): Last Assessment & Plan: Updated routine labs / baseline PTH Inflammatory arthritis 03/15/2022 Overview (12/04/2022): Carries dx of inflammatory arthritis by previous rheum , on Plaquenil No synovitis and normal markers of inflammation Will continue plaquenil for now but decrease plaquenil to every other day Eue exam is UTD Last Assessment & Plan: Carries dx of inflammatory arthritis by previous rheum , on Plaquenil No synovitis and normal markers of inflammation Will continue plaquenil for now Needs yearly eye exams Primary osteoarthritis involving multiple joints 03/15/2022 Overview (12/04/2022): XR confirmed mild OA hands and knees Celebrex has been very effective, will continue Labs normal , BP normal Will monitor CBC LFt CR 2 x year Last Assessment & Plan: XR confirmed mild OA hands and knees Celebrex has been very effective, will continue Labs normal , BP normal Will monitor CBC LFt CR 2 x year History of inflammatory arthritis 03/15/2022 08/01/2023 Overview (08/01/2023): Previously followed with Dr. Flores / [facility] rheum hydroxychloroquine c. 2017 to current No Raynaud's, no DMARDs other than hydroxychloroquine Worsened sxs with trial of halved hydroxychloroquine dose from 05/2022-02/2023; resumed full dosing 02/2023 Last Assessment & Plan: No current objective e/o active inflammatory arthritis despite persistent sxs of bl wrist and knee pain and swelling as well as up to 2 hrs AM stiffness; d/w patient at length today that it is possible long-term treatment with hydroxychloroquine has been effective but that I am unable to confirm previous dx. She will try to obtain records from her former rheumatology group. Dedicated plain film left wrist; would not escalate DMARD therapy or pursue MRI unless inflammatory markers return significantly elevated or there is other change in clinical picture. Myalgia 12/15/2021 Overview (12/04/2022): Last Assessment & Plan: zanaflex has been helpful Sleep has improved Will continue , check labs today Myositis 12/15/2021 Asthma, mild intermittent 12/09/2017 Overview (12/04/2022): Note: Unchanged Dysphagia 12/31/2016 Overview (12/04/2022): Note: Unchanged Fibromyalgia 12/10/2013 Conductive hearing loss in left ear 06/25/2013 Overview (12/04/2022): Note: after attempted ossiculoplasty (Dr Rivera) Allergic rhinitis 05/14/2013 Anxiety disorder 05/14/2013 Secondary insomnia 05/14/2013 History of tympanoplasty 06/25/2007 Cholesteatoma 06/25/2007 Overview (12/04/2022): Note: left ear- hearing loss- hearing aid Hx of craniotomy 06/26/2006 Overview (12/04/2022): Note: ? 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 Overview (12/04/2022): Note: sees Velma Recinos MD Resolved Problems Problem Noted Date Diagnosed Date Resolved Date Rosacea 05/14/2013 11/14/2023 Encounters Date Type Department Care Team Description 11/04/[address] [phone] Mirna Meza FNP Generalized anxiety disorder 09/19/[address] [phone] Mirna Meza FNP Mild intermittent asthma without complication; Gastroesophageal reflux disease without esophagitis 09/11/[address] [phone] Ernesto Aaron MD Fibromyalgia 08/14/[address] [phone] Mirna Meza FNP Generalized anxiety disorder from Last 3 Months Immunizations Name Administration Dates Next Due Influenza injectable quadriv alent IIV4 with preservative 07/22/2018,12/09/2017,07/29/2015 Influenza injectable quadriv alent preservative free 08/02/2023,08/10/2022,10/04/2021,2019,09/03/2019,09/04/2016 Influenza, IIV3, injectable 07/13/2011 Influenza, Unspecified 10/04/2021,2019,07/25/2016,2012 Moderna Covid-19 Vaccine 12+ 02/22/2021,01/26/20 21 Novel [id number], nasal 08/04/2009 Pfizer Covid-19 Vaccine 12+ 03/04/2022, Pfizer Covid-19 Vaccine 12+ Bivalent 08/10/2022 Pfizer Covid-19 Vaccine 12+ terri-sucrose (Mane Cap) 03/04/2022 Td (adult), unspecified 03/11/2002 Tdap 10/01/2022,09/04/2016,05/07/2012 Family History Medical History Relation Name Comments Drug abuse Brother Gabriel Hypertension Brother Gabriel Alcohol abuse Father Abelardo Depression Father Abelardo Learning disabilities Father Abelardo Mental illness Father Abelardo Hearing loss Father's Brother Jayleen Arthritis Mother Rashmi COPD Mother Rashmi Cancer Mother Rashmi Heart disease Mother Rashmi Hypertension Mother Rashmi Miscarriages / Stillbirths Mother Rashmi Asthma Sister Glenda Hypertension Sister Glenda Relation Name Status Comments Brother Gabriel Father Abelardo Father's Brother Jayleen Mother Rashmi Sister Glenda Social History Tobacco Use Types Packs/Day Years Used Date Smoking Tobacco: Never Passive Smoke Exposure: Never Smokeless Tobacco: Never Tobacco Cessation:Counseling Given: Not Answered Comments:Grew up with second hand smoke Alcohol [...] your housing situation today? I have bobby mervat 07/29/[address] you li [...] Orientation Straight 08/10/2022 6: 21 PM EDT Last Filed Vital Signs Vital Sign Reading Time Taken Comments Blood Pressure 115/74 05/11/2024 2:11 PM EDT Pulse 58 05/11/2024 2:11 PM EDT Temperature 35.6 ??C (96 ??F) 05/11/2024 2:11 PM EDT Respiratory Rate - - Oxygen Saturation 98% 05/11/2024 2:11 PM EDT Inhaled Oxygen Concentration - - Weight 65.3 kg (144 lb) 02/12/2024 10:28 AM EDT Height 154.9 cm (5' 1 ) 02/12/2024 10:28 AM EDT Body Mass Index 27.21 02/12/2024 10:28 AM EDT Plan of Treatment Health Maintenance Due Date Last Done Comments CT Colonography 1965 FIT DNA/Cologuard 1965 FIT 1965 FOBT 1965 HIV Screening 1965 Sigmoidoscopy 1965 Hepatitis B Vaccines (1 of 3 - 19+ 3-dose series) 1984 SDOH Screening 12/04/2023 12/04/2022 Zoster Vaccines (2 of 2) 09/28/2024 08/03/2024 Mammogram 12/26/2024 12/27/2023, 0306/2022, 01/09/2022, Additional history exists Alcohol/Substance Use Screening 02/11/2025 02/12/2024 Depression Screening 07/16/2025 07/16/2024, 07/16/20 Tobacco Screening 07/16/2025 07/16/2024 Cervical Cancer Screening 09/04/2028 HPV/Cotest 09/04/2028 09/04/2023 Pap Smear 09/04/2028 09/04/2023, 05/24/2016 DTaP/Tdap/Td Vaccines (4 - Td or Tdap) 10/01/2032 10/01/2022, 09/04/2016, 05/07/2012, Additional history exists Colonoscopy 11/22/2033 11/22/2023, 01/2016, 07/17/2016 Colorectal Cancer Screening 11/22/2033 RSV Patients and Patients Aged 60 years or older (1 - 1-dose 75+ series) 2040 Hepatitis C Screening Completed 01/27/2018 Influenza Vaccine Completed 08/03/2024, , 08/10/2022, Additional history exists COVID-19 Vaccine Completed 08/23/2024, , 03/04/2022, Additional history exists Pneumococcal Vaccine: Pediatrics (0 to 5 Years) and At-Risk Patients (6 to 64 Years) Completed 08/23/2024 HIB Vaccines Aged Out No longer eligi ble based on patient's age to complete this topic HPV Vaccines Aged Out No longer eligi ble based on patient's age to complete this topic Hepatitis A Vaccines Aged Out No long er eligible based on patient's age to complete this topic IPV Vaccines Aged Out No longer eligi ble based on patient's age to complete this topic Meningococcal Vaccine Aged Out No carol elijah eligible based on patient's age to complete this topic RSV under 20 months Aged Out No longe r eligible based on patient's age to complete this topic Rotavirus Vaccines Aged Out No longer eligible based on patient's age to complete this topic Procedures Procedure Name Priority Date/Time Associated Diagnosis Comments BI MAMMOGRAM SCREENING TOMOSYNTHESIS BILATERAL Routine 12/27/2023 2:15 PM EDT HM COLONOSCOPY Routine 11/22/2023 PAP, LB WITH CT/GC AND HPV Routine 09/04/2023 5:31 PM EST HM HEPATITIS C ANTIBODY Routine 01/27/2018 from Last 3 Months or Most Recently Relevant to Health Maintenance Results * BI Mammogram Screening Tomosynthesis Bilateral (12/27/2023 2:15 PM EDT) Anatomical Region Laterality Modality Breast Bilateral Mammography 12/27/2023 2:15 PM EDT Narrative 12/27/2023 4:28 PM EDT PROCEDURE: MM Digital Mammo Screening INDICATION: Screening for breast cancer. No known palpable abnormalities. COMPARISON: Multiple prior studies dating back to 07/31/2017 TECHNIQUE: Full-field digital CC and MLO 3D tomosynthesis images of both breasts were acquired. Computer-aided detection (CAD) was utilized in the interpretation of this study. DENSITY: The breast tissue contains scattered areas of fibroglandular density. FINDINGS: No suspicious masses, suspicious microcalcifications, or areas of architectural distortion are seen in either breast to suggest malignancy. IMPRESSION: No mammographic evidence of malignancy. RECOMMENDATION: Annual mammographic screening BI-RADS: 1 (Negative) Lay letter mailed to patient WSN: [id number] Ordering Physician: Mirna Meza Dictated By: ?Kassie Villavicencio MD Dictated Date/Time: ?12/27/23 4:25 pm Reviewed By: ?Kassie Villavicencio MD Signed By: ? Kassie Villavicencio MD Signed Date/Time: ? 12/27/23 4:25 pm Transcribed By: ? CSB Ship'S Surveyor Date/Time: ? 12/27/23 4:19 pm Birads: Procedure Note Donotbeeinterpreter, Image - 12/27/2023 PROCEDURE: MM Digital Mammo Screening INDICATION: Screening for breast cancer. No known palpableabnormalities. COMPARISON: Multiple prior studies dating back to 07/31/2017 TECHNIQUE: Full-field digital CC and MLO 3D tomosynthesis images of bothbreasts were acquired. Computer-aided detection (CAD) was utilized in theinterpretation of this study. DENSITY: The breast tissue contains scattered areas of fibroglandulardensity. FINDINGS: No suspicious masses, suspicious microcalcifications, or areasof architectural distortion are seen in either breast to suggestmalignancy. IMPRESSION: No mammographic evidence of malignancy. RECOMMENDATION: Annual mammographic screening BI-RADS: 1 (Negative) Lay letter mailed to patient WSN: [id number] Ordering Physician: Mirna Meza Dictated By: Kassie Villavicencio MD Dictated Date/Time: 12/27/23 4:25 pm Reviewed By: Kassie Villavicencio MD Signed By: Kassie Villavicencio MD Signed Date/Time: 12/27/23 4:25 pm Transcribed By: OTILIA Ship'S Surveyor Date/Time: 12/27/23 4:19 pm Birads: Mirna Derrick ASPHALT BLENDER IMG BI PROCEDURES Final Result * Colonoscopy (11/22/2023) Colonoscopy Normal Normal Comment:INTERNAL HEMORRHOIDS , POLYPS REMOVED, MILD DIVERTICULOSIS NOTED ON EXAM Historical Provider HEALTH MAINTENANCE Final Result * PAP, LB with CT/GC and HPV (09/04/2023 5:31 PM EST) PAP, LB WITH CT/GC AND HPV Patient Name: SIRIA IRVING [facility] Comment: Patient : ?[id number] (Age: 58) Lab Accession #: ? [id number] Collection Date: ? 09/04/2023 Accession Date: ? 09/06/2023 Sign Out Date: ? 09/12/2023 Tissue Source: 1: [employer]IN[employer]P SENIOR MEDICAL DIRECTOR PAP TEST, CERVICAL: Final Diagnosis: NEGATIVE FOR INTRAEPITHELIAL LESION OR MALIGNANCY. Atrophy. Satisfactory for evaluation. Partially obscuring inflammation present. Procedures/Addenda: Human Papilloma Virus, High-Risk (Any Dx) ? Status: Signed Out Interpretation: Negative Methodology: [employer] Aptima HPV mRNA assay (Nucleic Acid Amplification Test, NAAT). Clinical History: Date of Last Menstrual Period: ?? not available Menstrual History: ?? not available Contraceptive History: ??not available Ancillary Testing: ??HPV (any dx) Case imaged by the ThinPrep Imaging System with manual rescreening or review. Performed at [facility] department of Cytology, Myrtle Cruz MA Clinical History (other): ??Z12.4 Phone #: ??[phone], On-Call Pathologist: ??[id number] Testing performed or reported by [facility], a Service of [facility], [address] [place] [id number] Clemente Love MD, Sueding Machine Tender [facility]# [id number] 09/04/2023 5:31 PM EST 09/06/2023 5:32 PM EST Mirna Meza ASPHALT BLENDER LAB CYTOLOGY ORDERABLES Final Result [address] [address] * HM Hepatitis C Antibody (01/27/2018) Hepatitis C Antibody Nonreactive Blood Historical Provider HEALTH MAINTENANCE Final Result from Last 3 Months or Most Recently Relevant to Health Maintenance Insurance 18 10/[address] , [address] [place] [address] * Guarantor: Siria Irving Account Type Relation to Patient Date of Phone Billing Address Personal/Family Self 10/15 [place], [place] * Guarantor: Siria Irving Account Type Relation to Patient Date of Phone Billing Address Personal/Family Self 10/15 [place], [place] * Guarantor: Siria Irving Account Type Relation to Patient Date of Phone Billing Address Personal/Family Self 10/15 [place], [place] Care Teams Proof Inspector Relationship Specialty Start Date End Date Mirna Meza FNP [address] [place] [address] PCP - General Family Medicine 12/04/22 Diann Schwarz FNP [address] [place] [id number] Family Medicine 08/10/22
--- OUTSIDE RECORDS SUMMARY | 2024-11-09 13:17 | XMS_ITS | Encounter Summary ---
Author Organization [employer] Address [address] [facility] [address] [place] [address] Care Team Providers Care Addiction Professional Name Role Phone Diann Schwarz ACCOUNT MANAGER SALES REPRESENTATIVE Unavailable [phone] Mirna Meza ACCOUNT MANAGER SALES REPRESENTATIVE Primary Care Provider [phone] Encounter Details Date Type Department Care Team (Late st Contact Info) Description 01/28/2024 Orders Only [facility] [address] [place] [address] Provider, Not In System Social History Tobacco Use Types Packs/Day Years [...] Procedure Name Priority Date/Time Associated Diagnosis Comments COMPREHENSIVE METABOLIC PANEL Routine 01/27/2024 8:18 AM EDT CBC (INCLUDES DIFFERENTIAL AND PLATELETS) W/SMEAR REVIEW Routine 01/27/2024 7:46 AM EDT documented in this encounter Results * Comprehensive Metabolic Panel (01/27/2024 8:18 AM EDT) Blood Venous blood specimen / Unknown us Not In System Provider LAB BLOOD ORDERABLES Jessica l Result * CBC (includes Differential and Platelets) (REFL) (01/27/2024 7:46 AM EDT) Blood Venous blood specimen / Unknown us Not In System Provider LAB BLOOD ORDERABLES Jessica l Result documented in this encounter Visit Diagnoses Not on filedocumented in this encounter Care Teams Addiction Professional Relationship Specialty Start Date End Date Mirna Meza FNP [address] [place] [address] PCP - General Family Medicine 12/04/22 Diann Schwarz FNP [address] [place] [address] Family Medicine 08/10/22 documented as of this encounter
== END 2024-11-09 09:26 | disposition home or self-care (01) ==
PROVIDERS: PCP Student in an Organized Health Care Education/Training Program; Visit Provider Internal Medicine
DX: M79.18 Myalgia, other site (principal)
CPT/HCPCS: 99213

== ENCOUNTER → 2024-11-09 08:57 | Outpatient (BNVA) | payer OTHER, SELFPAY | PROVIDERS: PCP Student in an Organized Health Care Education/Training Program; Visit Provider Internal Medicine ==

== ENCOUNTER 2025-01-18 09:02 | Outpatient (AMB) | payer OTHER, SELFPAY ==
--- NOTE | 2025-01-18 09:04 | A.OFFVIS_ITS ---
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 Allergies penicillin V Allergy (Intermediate, Verified 01/18/25 09:07) rash Sulfacet-R Allergy (Intermediate, Uncoded 01/18/25 09:07) trouble breathing Medication List - Last Reconciled 01/18/25 by Angela Rhoades LPN acetaminophen ER (Tylenol Arthritis Pain) 650 mg PO Q12H calcium carbonate 600 mg PO DAILY celecoxib (Celebrex) 100 mg PO BID cholecalciferol (vitamin D3) 10 mcg PO DAILY docusate sodium (Colace) 100 mg PO TID fluticasone propionate 50 mcg/actuation 1 spray intranasal DAILY fluticasone propionate 100 mcg/actuation (Flovent Diskus) 1 inh inhalation BID hydroxychloroquine (Plaquenil) 200 mg PO DAILY inulin (Fiber Gummies) grams PO lactobacillus combination no.9 (Adult 50 Plus Probiotic) 4,000 mmu cells PO DAILY levothyroxine 100 mcg PO DAILY melatonin 10 mg PO BEDTIME PRN montelukast (Singulair) 10 mg PO DAILY omeprazole 20 mg PO DAILY paroxetine HCl 20 mg PO DAILY ropinirole 3 mg PO DAILY HPI HPI 3 months fu: Details: History of Present Illness The patient is a 59-year-old female presenting with a 3-month follow-up focused on chronic back pain and bilateral knee bursitis. The patient has a chronic history of back pain, managed conservatively with deep tissue massage, which provided limited relief. In recent months, the patient notes that oral steroids have improved the pain, suggesting an inflammatory nature. Additional pain management strategies have been explored due to discomfort and functional limitations. The patient's bilateral knee pain was diagnosed as chronic bursitis, with cortisone injections offering noticeable, albeit partial, relief. There is a previous history of consideration for rheumatoid arthritis, but this diagnosis was not confirmed. The knee issues have visibly impacted her ability to perform daily activities and may contribute to or exacerbate the back discomfort. Pain Description - Onset: Chronic, persistent over several months - Quality: Aching, discomfort noted - Location: Primarily in the back, with involvement in both knees - Radiation: None specified - Exacerbating factors: Lack of effective treatment, knee issues - Relieving factors: Cortisone injections, oral steroids, deep tissue massage - Interference: Affects daily activities and mobility Physical Exam - Appears afebrile. - Alert and oriented. - Mood and affect appropriate. - Follows and participates in conversation appropriately. - Respiratory effort is unlabored. - Able to transition from sit to stand unassisted. - Ambulates with bilaterally normal heel strike and toe off. - Able to stand and walk on toes and heels. Results Pain Management - Affect: Patient reports continued discomfort and impact on mood due to persistent pain. - Analgesia: Previous use of corticosteroids provided relief; massage therapy offered minimal benefit. No current goal pain level defined. - Adverse Effects: None reported from pain medication. - Activities of Daily Living: Pain interferes with daily mobility and knee movement, impacting quality of life. - Aberrant Drug Related Behaviors: None reported. [facility] Medical History (Updated 11/17/24 @ 16:02 by Dheeraj Joy MD) Seasonal allergies Left knee pain Endometriosis Epidermoid cyst Fibromyalgia Asthma Deafness in left ear Osteoarthritis Low back pain Lumbar spondylosis Disc degeneration, lumbar Polyarthralgia Surgical History (Updated 10/12/24 @ 09:11 by HONG Christian) History of appendectomy History of ear surgery Social History Alcohol intake: never Physical Exam Vital Signs: Last Vital Signs Pulse 52 01/18/25 09:05 Resp 16 01/18/25 09:05 BP 128/62 01/18/25 09:05 BMI result Body Mass Index 28.3 Assessment & Plan Assessment & Plan (1) Myofascial pain: Code(s): M79.18 - Myalgia, other site Category: Medical (2) Left knee pain: Code(s): M25.562 - Pain in left knee Category: Medical (3) Disc degeneration, lumbar: Code(s): M51.369 - Other intervertebral disc degeneration, lumbar region without mention of lumbar back pain or lower extremity pain Category: Medical (4) Lumbar spondylosis: Code(s): M47.816 - Spondylosis without myelopathy or radiculopathy, lumbar region Category: Medical (5) Sacroiliac joint dysfunction: Code(s): M53.3 - Sacrococcygeal disorders, not elsewhere classified Category: Medical Plan Plan The patient will continue with conservative management strategies, including massage therapy and possibly acupuncture, for treatment of chronic back pain and knee bursitis. While cortisone injections have been beneficial, further back pain intervention should be deferred for one month post-knee injections. I advised monitoring the use of steroids due to potential long-term side effects such as osteoporosis. Adjunct therapy like aqua exercises are encouraged. Follow-up in a future visit is planned to reassess pain management and explore alternative therapies as required. Patient was informed and verbally consented to the use of an ambient scribe for clinic note documentation during this visit. Discussion Notes During the visit, I discussed various treatment options for the patient's chronic back pain and bilateral knee bursitis. We talked about the roles of massage therapy and acupuncture in managing pain without pharmacological side effects. I educated the patient on the risks associated with long-term steroid use, including impacts on bone health and possible weight gain. I reviewed the effectiveness of previous cortisone injections in her knees and advised on waiting periods between further injections to prevent adverse effects. The patient was informed about conservative options like aqua therapy and how it may aid in symptom relief. A follow-up appointment in a few months was agreed upon to evaluate the effectiveness of ongoing strategies and reconsider more invasive interventions if necessary. Patient Instructions - Continue with massage therapy as discussed. - Consider trying acupuncture if interested, knowing it might not be covered by insurance. - Wait one month after knee injections before deciding on further back pain injections. - Use aqua therapy exercises to aid in pain management. - Monitor symptoms and report any worsening or changes. - Follow up in two months for reassessment of pain management strategies. - Ensure understanding of the potential risks of long-term steroid use. Coding Level of Care Code Est Pt Level 4 (54747) Diagnoses Myofascial pain M79.18 Left knee pain M25.562 Disc degeneration, lumbar M51.369 Lumbar spondylosis M47.816 Sacroiliac joint dysfunction M53.3
[2025-01-18 09:05] VITALS: BP 128/62; PULSE 52; RESP 16; BMI 28.3
--- OUTSIDE RECORDS SUMMARY | 2025-01-18 09:59 | XMS_ITS | Referral Summary ---
Demographics Address [address] [place] [address] Home Phone Mobile Phone Preferred Language Nepali Marital Status Zoroastrian Affiliation Unknown Race White Ethnic Group Not or Lati no Author Organization [facility] Address [address] [place] [address] Care Team Providers Care Material Attendant Name Role Phone Mirna Meza Primary Care Provider [phone] Encounters Date Type Department Care Team Description 01/12/2025 1:00 PM EDT Follow-Up [facility] [address] [place] [id number] Communications Director: Jennifer Carcamo MD Pes anserinus bursitis of both knees (Primary Dx) 01/08/2025 Telephone [facility] [address] [place] [phone] Communications Director: Jennifer Carcamo MD 01/07/2025 9:21 AM EDT - 01/07/2025 11:59 PM EDT Hospital Encounter [facility] [address] [place] [id number] Rachel Ponce MD Fibromyalgia; Primary osteoarthritis involving multiple joints Discharge Disposition: Home or Self Care () 01/07/2025 8:00 AM EDT Office Visit [facility] [address] [place] [id number] Communications Director: Jennifer Carcamo MD Fibromyalgia (Primary Dx); Primary osteoarthritis involving multiple joints; Pes anserinus bursitis of both knees 01/05/2025 Telephone [facility] [address] [place] [phone] Communications Director: Jennifer Carcamo MD from Last 3 Months Allergies Active Allergy Reactions Criticality Noted Date Comments Cyclobenzaprine Dry mouth,Joint pain,Sweating Low 04/23/2022 Other reaction(s): Dry Mouth, Joint Pain, Sweating Gluten Protein Unknown 09/04/2023 Penicillins Other (see comments),Rash Low 06/25/2013 Other reaction(s): Skin Rashes, Hives penicillin V potassium Sulfa (Sulfonamide Antibiotics) Dyspnea High 06/25/2013 Other reaction(s): Asthma, Shortness of Breath Tapioca Vomiting 05/22/2024 Medications acetaminophen (TYLENOL) 650 mg 8 hr tablet Take 650 mg by mouth every 8 hours as needed. Active cholecalcifero l (VITAMIN D3) 400 unit tablet Take 1 tablet by mouth once a day. 09/15/20 24 Active PARoxetine (PAXIL) 20 mg tablet Take 1 tablet by mouth once a day. Active fluticasone propionate (FLONASE) 50 mcg/actuation nasal spray Administer 2 sprays into each nostril once a day. 11/18/19 25 Active hydroxychloroq uine (PLAQUENIL) 200 mg tablet Take 1.5 mg by mouth once a day. 11/25/19 25 Active levothyroxine (SYNTHROID, LEVOTHROID) 75 mcg tablet Take 75 mcg by mouth daily. 01/28/20 24 Active melatonin 5 mg tablet Take 5 mg by mouth daily. Active montelukast (SINGULAIR) 10 mg tablet Take 10 mg by mouth nightly. 09/22/20 24 Active omeprazole (PriLOSEC) 20 mg capsule Take 20 mg by mouth once a day. 09/22/20 24 Active rOPINIRole (REQUIP) 3 mg tablet Take 3 mg by mouth nightly. 07/14/20 24 Active fluticasone propionate (FLOVENT DISKUS) 250 mcg inhaler Inhale 1 puff by mouth 2 times a day. Rinse mouth with water after use to reduce aftertaste and incidence of candidiasis. Do not swallow. Active albuterol (PROAIR HFA,VENTOLIN HFA) 90 mcg inhaler Inhale 1-2 puffs by mouth every 6 hours as needed for wheezing or shortness of breath. Use with spacer. Active celecoxib (CeleBREX) 200 mg capsule Take 200 mg by mouth 2 times daily. 12/23/19 25 025 Discontinued (Therapy Completed or No Longer Needed) inulin 2 gram tablet,chewabl e Chew and swallow by mouth. 025 Discontinued (Therapy Completed or No Longer Needed) triamcinolone (KENALOG) 0.025 % ointment APPLY TO AFFECTED AREA TWICE A DAY FOR 14 DAYS 025 Discontinued (Therapy Completed or No Longer Needed) Hospital, Clinic, or Other Facility Administered Medication Ordered Dose Route Frequency Start Date End Date Status lidocaine w/ preservative (XYLOCAINE) 1% (10 mg/mL) injection 1 mLIndications:Pes anserinus bursitis of both knees 1 mL injection One-time injection 01/12/2025 01/12/2025 Ended methylPREDNISolone acetate (DEPO-Medrol) injection 40 mgIndications:Pes anserinus bursitis of both knees 40 mg intraartic One-time injection 01/12/2025 01/12/2025 Ended Active Problems No known active problems Social History Tobacco Use Types Packs/Day Years Used Date Smoking Tobacco: Never Passive Smoke Exposure: Past Smokeless Tobacco: Never Tobacco Cessation:Counseling Given: Not Answered Alcohol Use Standard Drinks/Week Comments Not Currently 0 (1 standard drink = 0.6 oz pur e alcohol) Comments Unknown Sex and Gender Information Value Date Recorded Sex Assigned at Female 12/24/2024 10:38 AM EDT Legal Sex Female 10:35 AM EDT Gender Identity Female 01/10/2025 5:21 PM EDT Sexual Orientation Straight 01/10/2025 5: 21 PM EDT Last Filed Vital Signs Vital Sign Reading Time Taken Comments Blood Pressure 125/82 01/12/2025 12:50 PM EDT Pulse 62 01/12/2025 12:50 PM EDT Temperature 36.2 ??C (97.2 ??F) 01/12/2025 12:50 PM E DT Respiratory Rate - - Oxygen Saturation - - Inhaled Oxygen Concentration - - Weight 63.5 kg (140 lb) 01/12/2025 12:50 PM EDT Height - - Body Mass Index - - Plan of Treatment Upcoming Encounters Date Type Department Care Team (Late st Contact Info) Description 11/15/2025 11:30 AM EST Follow-Up [facility] [address] [place] [address] Communications Director: Jennifer Carcamo MD [address] [place] [phone] Procedures * Due to [place] [employer] law, this organization might not be sharing negative HIV tests. Procedure Name Priority Date/Time Associated Diagnosis Comments INJECTION TENDON, LIGAMENT, OR APONEUROSIS Routine 01/12/2025 1:00 PM EDT Pes anserinus bursitis of both knees XR KNEE 4+ VW LEFT Routine 01/07/2025 9: 34 AM EDT Fibromyalgia Primary osteoarthritis involving multiple joints XR KNEE AP/PA BILATERAL STANDING Routine 01/07/2025 9:34 AM EDT Fibromyalgia Primary osteoarthritis involving multiple joints XR KNEE 4+ VW RIGHT Routine 01/07/2025 9 :34 AM EDT Fibromyalgia Primary osteoarthritis involving multiple joints from Last 3 Months Results * Due to [place] state law, this organization might not be sharing negative HIV tests. * Injection Tendon, Ligament, or Aponeurosis (01/12/2025 1:00 PM EDT) Jennifer Hooker MD - 01/12/2025 1:00 PM EDT Jennifer Chaudhary MD ? 01/12/2025 ??1:41 PM Injection Tendon, Ligament, or Aponeurosis ? Date/Time: 01/12/2025 1:00 PM ? Performed by: Jennifer Chaudhary MD ? Authorized by: Elder Staples, DO Consent: ? Verbal consent obtained: Yes ? Written consent obtained: Yes ? Risk and benefits discussed: Yes ? Written informed consent was obtained from the patient. [place] Protocol: ? Procedure consent matches procedure scheduled: Yes ? All relevant documents/tests are correctly identified, labeled, and matched to patient: Yes ? Relevant tests/ Imaging studies available/reviewed: Yes ? Correct site marked: Yes ? Required blood products, implants, devices and special equipment available: Yes ? Immediately prior to the procedure a time out was called: Yes An attending physician was present for the procedure OR the procedure was performed by an Advanced Practice Provider: Yes Procedure Details: ? Location: knee ? Site Prep: Betadine ? Topical Anesthetic: ethyl chloride (cold spray) ? Syringe Size:10 mL ? Needle size: 25 G ? Approach: anterior ? Medications administered: 40 mg methylPREDNISolone acetate 40 mg/mL; 1 mL lidocaine w/ preservative 1% (10 mg/mL) ? Dressing: Band-Aid Post-procedure Details: ? Patient tolerance: patient tolerated the procedure well with no immediate complications ? Instructions: post-procedure instructions were reviewed ? Discharge: patient discharged from clinic in stable condition Elder Staples DO IN CLINIC/BEDSIDE ORDERABLES F inal Result * XR Knee AP/PA Bilateral Standing (01/07/2025 9:34 AM EDT) Anatomical Region Laterality Modality Lower Extremities, Knee Bilateral Computed Radiography 01/07/2025 2:09 PM EDT Impressions 01/07/2025 2:19 PM EDT Right knee: No acute fracture or dislocation. Joints are congruent. Mild the patellofemoral degenerative space narrowing osteophytosis. No erosion. No effusion. Left knee: No acute fracture or dislocation. Joints are congruent. Mild the patellofemoral degenerative space narrowing osteophytosis. No erosion. No effusion. If this radiology report contains a blank impression section, it is an incomplete radiology report. ??Please contact the interpreting radiologist or applicable radiology division as soon as possible to obtain the completed interpretation. ? Workstation ID: [id number] Narrative 01/07/2025 2:19 PM EDT COMPARISON: ??There are no prior studies available for comparison at this time. ?? FINDINGS AND Resulting Agency Comment [id number] Procedure Note Hans Barney, DO - 01/07/2025 COMPARISON: There are no prior studies available for comparison at thistime. FINDINGS AND IMPRESSION: Right knee: No acute fracture or dislocation. Joints are congruent. Mildthe patellofemoral degenerative space narrowing osteophytosis. No erosion.No effusion. Left knee: No acute fracture or dislocation. Joints are congruent. Mildthe patellofemoral degenerative space narrowing osteophytosis. No erosion.No effusion. If this radiology report contains a blank impression section, it is anincomplete radiology report. Please contact the interpreting radiologistor applicable radiology division as soon as possible to obtain thecompleted interpretation. Workstation ID: [id number] Rachel Ponce MD IMG XR PROCEDURES Final Result * X-Ray Knee Right 4+ Views (01/07/2025 9:34 AM EDT) Anatomical Region Laterality Modality Lower Extremities, Knee Right Computed Radiography 01/07/2025 2:09 PM EDT Impressions 01/07/2025 2:19 PM EDT Right knee: No acute fracture or dislocation. Joints are congruent. Mild the patellofemoral degenerative space narrowing osteophytosis. No erosion. No effusion. Left knee: No acute fracture or dislocation. Joints are congruent. Mild the patellofemoral degenerative space narrowing osteophytosis. No erosion. No effusion. If this radiology report contains a blank impression section, it is an incomplete radiology report. ??Please contact the interpreting radiologist or applicable radiology division as soon as possible to obtain the completed interpretation. ? Workstation ID: [id number] Narrative 01/07/2025 2:19 PM EDT COMPARISON: ??There are no prior studies available for comparison at this time. ?? FINDINGS AND Resulting Agency Comment [id number] Procedure Note Hans Barney, - 01/07/2025 COMPARISON: There are no prior studies available for comparison at thistime. FINDINGS AND IMPRESSION: Right knee: No acute fracture or dislocation. Joints are congruent. Mildthe patellofemoral degenerative space narrowing osteophytosis. No erosion.No effusion. Left knee: No acute fracture or dislocation. Joints are congruent. Mildthe patellofemoral degenerative space narrowing osteophytosis. No erosion.No effusion. If this radiology report contains a blank impression section, it is anincomplete radiology report. Please contact the interpreting radiologistor applicable radiology division as soon as possible to obtain thecompleted interpretation. Workstation ID: [id number] Rahcel Ponce MD IMG XR PROCEDURES Final Result * X-Ray Knee Left 4+ Views (01/07/2025 9:34 AM EDT) Anatomical Region Laterality Modality Lower Extremities, Knee Left Computed Radiography 01/07/2025 2:09 PM EDT Impressions 01/07/2025 2:19 PM EDT Right knee: No acute fracture or dislocation. Joints are congruent. Mild the patellofemoral degenerative space narrowing osteophytosis. No erosion. No effusion. Left knee: No acute fracture or dislocation. Joints are congruent. Mild the patellofemoral degenerative space narrowing osteophytosis. No erosion. No effusion. If this radiology report contains a blank impression section, it is an incomplete radiology report. ??Please contact the interpreting radiologist or applicable radiology division as soon as possible to obtain the completed interpretation. ? Workstation ID: [id number] Narrative 01/07/2025 2:19 PM EDT COMPARISON: ??There are no prior studies available for comparison at this time. ?? FINDINGS AND Resulting Agency Comment [id number] Procedure Note Hans Barney, - 01/07/2025 COMPARISON: There are no prior studies available for comparison at thistime. FINDINGS AND IMPRESSION: Right knee: No acute fracture or dislocation. Joints are congruent. Mildthe patellofemoral degenerative space narrowing osteophytosis. No erosion.No effusion. Left knee: No acute fracture or dislocation. Joints are congruent. Mildthe patellofemoral degenerative space narrowing osteophytosis. No erosion.No effusion. If this radiology report contains a blank impression section, it is anincomplete radiology report. Please contact the interpreting radiologistor applicable radiology division as soon as possible to obtain thecompleted interpretation. Workstation ID: [id number] Rachel Ponce MD IMG XR PROCEDURES Final Result from Last 3 Months Insurance * Guarantor: Siria Stark Account Type Relation to Patient Date of Phone Billing Address Personal/Family Self 1965 [address] [place] [address] [facility] Care Teams Material Attendant Relationship Specialty Start Date End Date Mirna Meza [address] [place] [id number] PCP - General Nurse Practitioner Family 12/24/24
--- OUTSIDE RECORDS SUMMARY | 2025-01-18 09:59 | XMS_ITS | Clinical Summary ---
Author Organization [facility] Address [address] [place] [address] Care Team Providers Care Customer Service Associate Name Role Phone Mirna Meza Primary Care Provider [phone] Allergies Active Allergy Reactions Criticality Noted Date [...] Ended Active Problems No known active problems Encounters Date Type Department Care Team Description 01/12/2025 1:00 PM EDT Follow-Up [facility] [address] [place] [address] Telephone Station Repairer: Jennifer Carcamo MD Pes anserinus bursitis of both knees (Primary Dx) 01/08/2025 Telephone [facility] [address] [place] [address] Telephone Station Repairer: Jennifer Carcamo MD 01/07/2025 9:21 AM EDT - 01/07/2025 11:59 PM EDT Hospital Encounter [facility] XRay [address] [place] [address] Rachel Ponce MD Fibromyalgia; Primary osteoarthritis involving multiple joints Discharge Disposition: Home or Self Care () 01/07/2025 8:00 AM EDT Office Visit [facility] [address] [place] [address] Telephone Station Repairer: Jennifer Carcamo MD Fibromyalgia (Primary Dx); Primary osteoarthritis involving multiple joints; Pes anserinus bursitis of both knees 01/05/2025 Telephone [facility] [address] [place] [address] Telephone Station Repairer: Jennifer Carcamo MD from Last 3 Months Social History Tobacco Use Types Packs/Day Years [...] Info) Description 11/15/2025 11:30 AM EST Follow-Up [facility] [address] [place] [address] Telephone Station Repairer: Jennifer Carcamo MD [address] [place] [address] Health Maintenance Due Date Last Done Comments Cervical Cancer Screening 1965 Cologuard 1965 Colon Cancer Screening 1965 Colonoscopy 1965 FOBT / Fit Test 1965 HIV Screening 1965 HPV and Pap Smear 1965 Hepatitis C Screening 1965 Pap Smear 1965 Sigmoidoscopy 1965 Hepatitis B Vaccines (1 of 3 - 19+ 3-dose series) 1984 Mammogram 2005 Zoster Vaccines (2 of 2) 09/28/2024 08/03/2024 Alcohol/Substance Use Screening 10/14/2024 Depression Screening and Follow-Up 10/14/2024 Social Drivers of Health Nicolle ual Screening 10/14/2024 DTaP,Tdap,and Td Vaccines (4 - Td or Tdap) 10/01/2032 10/01/2022, 09/04/2016, 05/07/2012, Additional history exists RSV Vaccine (60+ years old a nd patients) (1 - 1-dose 75+ series) 2040 Influenza Vaccine Completed 08/03/2024, , 08/10/2022, Additional history exists COVID-19 Vaccine Completed 08/23/2024, , 08/10/2022, Additional history exists Pneumococcal Vaccine: 50+ Years Completed 4 Procedures * Due to [place] state law, this organization might not be [...] Last 3 Months Results * Due to [place] state law, this organization might not be sharing negative HIV tests. * Injection Tendon, Ligament, or Aponeurosis (01/12/2025 1:00 PM EDT) Narrative Jennifer Chaudhary MD - 01/12/2025 1:00 PM EDT Jennifer Chaudhary MD ? 01/12/2025 ??1:41 PM Injection Tendon, Ligament, or Aponeurosis ? Date/Time: 01/12/2025 1:00 PM ? Performed by: Jennifer Chaudhary MD ? Authorized by: Elder Staples, DO Consent: ? Verbal consent obtained: Yes ? Written consent obtained: Yes ? Risk and benefits discussed: Yes ? Written informed consent was obtained from the patient. [place] Protocol: ? Procedure consent matches procedure scheduled: [...] obtain the completed interpretation. ? Workstation ID: [id number] Narrative 01/07/2025 2:19 PM EDT COMPARISON: ??There are no prior studies available for comparison at this time. ?? FINDINGS AND Resulting Agency Comment [id number] Procedure Note Hans Barney, DO - 01/07/2025 [...] possible to obtain thecompleted interpretation. Workstation ID: [id number] Rachel Ponce MD IMG XR PROCEDURES Final [...] obtain the completed interpretation. ? Workstation ID: [id number] Narrative 01/07/2025 2:19 PM EDT COMPARISON: ??There are no prior studies available for comparison at this time. ?? FINDINGS AND Resulting Agency Comment [id number] Procedure Note Hans Barney, DO - 01/07/2025 [...] possible to obtain thecompleted interpretation. Workstation ID: [id number] Rachel Ponce MD IMG XR PROCEDURES Final [...] obtain the completed interpretation. ? Workstation ID: [id number] Narrative 01/07/2025 2:19 PM EDT COMPARISON: ??There are no prior studies available for comparison at this time. ?? FINDINGS AND Resulting Agency Comment [id number] Procedure Note Hans Barney, DO - 01/07/2025 [...] possible to obtain thecompleted interpretation. Workstation ID: [id number] Rachel Ponce MD IMG XR PROCEDURES Final Result from Last 3 Months Insurance 18 10/[address] Care Teams Customer Service Associate Relationship Specialty Start Date End Date Mirna Meza [address] [place] [id number] PCP - General Nurse Practitioner Family 12/24/24
--- OUTSIDE RECORDS SUMMARY | 2025-01-18 09:59 | XMS_ITS | Encounter Summary ---
Demographics Address [address] [place] [address] Home Phone Mobile Phone Email Address Preferred Language en Marital Status Protestant Affiliation Unknown Race White Ethnic Group Not or Lati no Author Organization [employer] Address [address] [facility] [address] [place] [address] Care Team Providers Care Traffic Officer Name Role Phone Diann Schwarz ROCK LOADER Unavailable [phone] Mirna Meza Primary Care Provider [phone] Encounter Details Date Type Department Care Team ([facility] st Contact Info) Description 01/15/2025 Telephone [facility] [address] [place] [address] Mirna Meza FNP [address] [place], [place] [phone] Social History Tobacco Use Types Packs/Day Years [...] housing situation today? I have bobby crowell 12/02/[address] you li ve. Do you have problems with any of the following? I am not sure 12/02/2024 Food Insecurity Answer Date Recorded Within the past 12 months, y ou worried that your food would run out before you got money to buy more: Never True 12/02/2024 Within the past 12 months,th e food you bought just didn't last and you didn't have enough money to get more: Never True Transportation Answer Date Recorded In the past 12 months, has l ack of transportation kept you from medical appts, meetings, work or from getting things needed for daily living? No 12/02/2024 Intimate Partner Violence Answer Date R ecorded [...] shut off services in your home? No 12/02/2024 Depression Answer Date Recorded Patient Health Questionnaire-2 [...] encounter Miscellaneous Notes * Telephone Encounter - Marci Tuttle - 01/15/2025 10:18 AM EDT Looking to discuss aqua therapy and acupuncture recommendations with SB. Please call to discuss. [phone] or [phone] documented in this encounter Plan of Treatment Upcoming Encounters Date Type Department Care Team (Late st Contact Info) Description 01/28/2025 9:20 AM EDT Office Visit [facility] [address] [place] [address] Mirna Meza FNP [address] [place] [address] documented as of this encounter Visit Diagnoses Not on filedocumented in this encounter Additional Health Concerns Assessment Noted Time PHQ-9 Depression Total Score: 7 07/16/20 8:02 AM EDT documented as of this encounter Care Teams Traffic Officer Relationship Specialty Start Date End Date Mirna Meza FNP [address] [place] [address] PCP - General Family Medicine 12/04/22 Diann Schwarz FNP [address] [place] [address] Family Medicine 08/10/22 documented as of this encounter
--- OUTSIDE RECORDS SUMMARY | 2025-01-18 09:59 | XMS_ITS | Encounter Summary ---
Author Organization [facility] Address [address] [place] [address] Care Team Providers Care Exerciser Horse Name Role Phone Diann Schwarz Primary Care Provider [phone] Diann Schwarz Unavailable [phone] Mirna Meza Primary Care Provider [phone] Encounter Details Date Type Department Care Team (Late st Contact Info) Description 09/04/2022 Abstract [facility] [address] [place] [address] Pauline Morel [address] [place] [address] Social History Tobacco Use Types Packs/Day Years Used Date Smoking Tobacco: Never Assessed Comments Unknown Sex and Gender Information Value Date Recorded Sex Assigned at Female 09/28/2022 1:04 PM EST Legal Sex Female 6:21 PM EDT Gender Identity Female 08/10/2022 6:21 PM EDT Sexual Orientation Straight 08/10/2022 6: 21 PM EDT documented as of this encounter Plan of Treatment Upcoming Encounters Date Type Department Care Team (Late st Contact Info) Description 01/28/2025 9:20 AM EDT Office Visit [address] [address] Mirna Meza FNP [address] [place] [address] documented as of this encounter Visit Diagnoses Not on filedocumented in this encounter Care Teams Exerciser Horse Relationship Specialty Start Date End Date Diann Schwarz FNP [address] [place] [address] PCP - General Family Medicine 08/10/22 12/03/22 Mirna Meza FNP [address] [place] [address] PCP - General Family Medicine 12/04/22 Diann Schwarz FNP [address] [place] [address] Family Medicine 08/10/22 documented as of this encounter
--- OUTSIDE RECORDS SUMMARY | 2025-01-18 09:59 | XMS_ITS | Encounter Summary ---
Author Organization [facility] Address [address] [place] [address] Care Team Providers Care Clerical Assigner Name Role Phone Diann Schwarz Primary Care Provider [phone] Diann Schwarz Unavailable [phone] Mirna Meza Primary Care Provider [phone] Encounter Details Date Type Department Care Team (Late st Contact Info) Description 11/06/2022 Orders Only [facility] [address] [place] [address] Diann Schwarz FNP [address] [place], [place] [phone] Social History Tobacco Use Types Packs/Day Years [...] Description 01/28/2025 9:20 AM EDT Office Visit [address] [address] Mirna Meza FNP [address] [place] [phone] documented as of this encounter Visit Diagnoses Not on filedocumented in this encounter Care Teams Clerical Assigner Relationship Specialty Start Date End Date Diann Schwarz FNP [address] [place] [address] PCP - General Family Medicine 08/10/22 12/03/22 Mirna Meza FNP [address] [place] [address] PCP - General Family Medicine 12/04/22 Diann Schwarz FNP [address] [place] [address] Family Medicine 08/10/22 documented as of this encounter
--- OUTSIDE RECORDS SUMMARY | 2025-01-18 09:59 | XMS_ITS | Encounter Summary ---
Demographics Address [address] [place] [address] Home Phone Mobile Phone Preferred Language Armenian Marital Status Zoroastrian Affiliation Unknown Race White Ethnic Group Not or Lati no Author Organization [facility] Address [address] [place] [address] Care Team Providers Care Laborer Wrecking And Salvaging Name Role Phone Mirna Meza Primary Care Provider Reason for Visit * Consultation (Routine) - Authorized Specialty Diagnoses / Procedures Referred By Victorino veloz Referred To Contact Rheumatology Diagnoses Osteoarthritis Mirna Meza [address] [place] [address] Phone: tel: fax: Ilya Schulte MD [address] [place] [address] Phone: tel: fax: Referral ID Status Reason Start Date Expiration Date V isits Requested Visits Authorized [id number] Authorized 01/07/2025 01/07/2026 6 6 Encounter Details Date Type Department Care Team (Late st Contact Info) Description 01/12/2025 1:00 PM EDT Follow-Up [facility] [address] [place] [address] It Infrastructure Manager: Jennifer Carcamo MD [address] [place] [address] Pes anserinus bursitis of both knees (Primary Dx) Social History Tobacco Use Types Packs/Day Years Used Date Smoking Tobacco: Never Passive Smoke Exposure: Past Smokeless Tobacco: Never Alcohol Use Standard Drinks/Week Comments Not Currently 0 (1 standard drink = 0.6 oz pur e alcohol) Comments Unknown Sex and Gender Information Value Date Recorded Sex Assigned at Female 12/24/2024 10:38 AM EDT Legal Sex Female 10:35 AM EDT Gender Identity Female 01/10/2025 5:21 PM EDT Sexual Orientation Straight 01/10/2025 5: 21 PM EDT documented as of this encounter Last Filed Vital Signs Vital Sign Reading Time Taken Comments Blood Pressure 125/82 01/12/2025 12:50 PM EDT Pulse 62 01/12/2025 12:50 PM EDT Temperature 36.2 ??C (97.2 ??F) 01/12/2025 12:50 PM E DT Respiratory Rate - - Oxygen Saturation - - Inhaled Oxygen Concentration - - Weight 63.5 kg (140 lb) 01/12/2025 12:50 PM EDT Height - - Body Mass Index - - documented in this encounter Patient Instructions * Patient Instructions* Jennifer Chaudhary MD - 01/12/2025 1:07 PM EDT Acupuncture referral Brett Post located at [address] [place] [address] phone Aqua Therapy- [address] phone documented in this encounter Progress Notes * Elder Staples DO - 01/15/2025 6:30 AM EDT I saw and evaluated the patient. Case discussed with the resident/fellow and I agree with the findings and plan as documented in the resident's/fellow's note. I was present during the entire procedure. * Jennifer Chaudhary MD - 01/12/2025 1:06 PM EDTAssociated Order(s): Injection Tendon, Ligament, or Aponeurosis Post-Procedure Diagnose(s): Pes anserinus bursitis of both knees RHEUMATOLOGY CLINIC INITIAL VISIT CHIEF COMPLAINT No chief complaint on file. PROVIDERS Referred by: Mirna Meza NP PCP: Mirna Meza HISTORY OF PRESENTING ILLNESS Siria Stark is a 59 y.o. female background Inflammatory arthritis, Hashimotos, Fibromyalgia, Endometriosis, restless leg syndrome, metatarsal fracture, GERD who presents to clinic for evaluation ofinflammatory arthritis. The patient was most recently seen by Rheumatology at [facility] by Dr.S[place]ia Walton. Per her last note on 11/25/2024: [place] [facility] [place]ychloroqu[place] c. 2017 to current No Raynaud's, no DMARDs other than hydroxychloroquine Worsened sxs with trial of halved hydroxychloroquine dose from 05/2022-02/2023; resumed full dosing 02/2023 Records from [place] [facility] 2019 and 2020 - no clear e/o of inflammatory arthritis but joint sxs improved with half dose hydroxychloroquine (unable to tolerate full dose) Persistent absence of e/o active inflammatory arthritis on hydroxychloroquine monotherapy. Will review updated labs prior to possible trial of decreased hydroxychloroquine dose. Patient currently is here from [facility]. Patient presents here today for second opinion (has seen 6 [facility] in the past 10 years). The patient notes that she has hands and knees pain that is worse in the morning with associated stiffness for around couple hours a day that improves after she moves around but however notes that sometimes she has had worsening pain with movement. She notes that lately she has been experiencing these symptoms more now. The patient notes that her hand pain is in her wrist, knuckles and distal fingers. She notes that in her knees she notes that they ache a lot of a time. She notes that she wearsa knee brace (on the left knee). She notes that her joints get swollen but not red or warm. She notes that she also recently after a cold 3.5 months ago she started having swelling around her eyes and was treated with multiple round of antibiotics. y. The patient notes that she has back pain that started around 2-3 years ago in the right hip and then she had it worked up by spine surgery. The patient had imaging done to rule out sacroilitis. The patient had steroid injections in the back. The patient also notes that she has fibromyalgia and diffuse pain everywhere. The patient has poor sleep. Wakes up multiple times a night. The patient hasn't had a sleep study done. The patient has done PT for Fibromyalgia. Has tried Gabapentin in the past, but lost effect. Tried Cymbalta but she couldn't tolerate. The patient notes that sometimes her mood The patient notes that she has been taking Plaquenil around 2019 and Celebrex for around 3-4 years.The patient notes that she has improvement in her symptoms. The patient notes that prednisone 10 mgand then was on medrol for 24 mg which the patient notes didn't improve any of her symptoms or the swelling in her knees or hands. The patient has done physical therapy for her knees in the past. Thepatient currently takes Celebrex 200 mg BID and Plaquenil 300 mg. The patient denies any hyper flexibility, elastic skin. Patient notes that she has easy bruising. Denies any Raynauds, new skin rashes, dysphagia, shortness of breath, chest pain, skin thickening, muscle weakness or sicca symptoms. Occupation: Patient is not currently working. 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 Family History: Sister had [place] Smoking: None Alcohol: None : none REVIEW OF SYSTEMS Review of Systems MEDICAL HISTORY No past medical history on file. SURGICAL HISTORY No past surgical history on file. FAMILY HISTORY No family history on file. SOCIAL HISTORY reports that she has never smoked. She has been exposed to tobacco smoke. She has never used smokeless tobacco. She reports that she does not currently use alcohol. She reports that she does not use drugs. MEDICATIONS Current Outpatient Medications Medication Sig Dispense Refill acetaminophen (TYLENOL) 650 mg 8 hr tablet Take 650 mg by mouth every 8 hours as needed. albuterol (PROAIR HFA,VENTOLIN HFA) 90 mcg inhaler Inhale 1-2 puffs by mouth every 6 hours as needed for wheezing or shortness of breath. Use with spacer. cholecalciferol (VITAMIN D3) 400 unit tablet Take 1 tablet by mouth once a day. fluticasone propionate (FLONASE) 50 mcg/actuation nasal spray Administer 2 sprays into each nostrilonce a day. fluticasone propionate (FLOVENT DISKUS) 250 mcg inhaler Inhale 1 puff by mouth 2 times a day. [place] with water after use to reduce aftertaste and incidence of candidiasis. Do not swallow. hydroxychloroquine (PLAQUENIL) 200 mg tablet Take 1.5 mg by mouth once a day. levothyroxine (SYNTHROID, LEVOTHROID) 75 mcg tablet Take 75 mcg by mouth daily. melatonin 5 mg tablet Take 5 mg by mouth daily. montelukast (SINGULAIR) 10 mg tablet Take 10 mg by mouth nightly. omeprazole (PriLOSEC) 20 mg capsule Take 20 mg by mouth once a day. PARoxetine (PAXIL) 20 mg tablet Take 1 tablet by mouth once a day. rOPINIRole (REQUIP) 3 mg tablet Take 3 mg by mouth nightly. No current facility-administered medications for this visit. ALLERGIES Allergies Allergen Reactions Sulfa (Sulfonamide Antibiotics) Dyspnea Other reaction(s): Asthma, Shortness of Breath Gluten Protein Unknown Tapioca Vomiting Cyclobenzaprine Dry mouth, Joint pain and Sweating Other reaction(s): Dry Mouth, Joint Pain, Sweating Penicillins Other (see comments) and Rash Other reaction(s): Skin Rashes, Hives penicillin V potassium PHYSICAL EXAM VITALS: Blood pressure 125/82, pulse 62, temperature 36.2 ??C (97.2 ??F), temperature source Oral, weight 63.5 kg (140 lb). GEN: AAOx3, nil acute distress, well appearing HEENT: PERRL, EOMI, no alopecia, MMM, no oral ulcers NECK: supple, no cervical or supraclavicular lymphadenopathy PULM: clear breath sounds, nil wheeze/crackles CV: regular, heart sounds I+II present, nil murmurs GI: soft, non-tender, bowel sounds present, nil masses EXT: nil edema MSK - General: tenderness bilateral elbows, trapezius hamstrings and calf on light palpation Neck: no TTP, FROM Back: no TTP, FROM Shoulders: no swelling, no redness, no warmth, no TTP, FROM Elbows: no swelling, no redness, no warmth, no TTP, FROM Wrists: no swelling, no redness, no warmth, no TTP, FROM Hands: no swelling, no redness, no warmth, no TTP, FROM, 5/5 hand baseboard heating installer, positive Herbeden nodes Hips: no TTP, FROM, pain at bilateral trochanteric bursa Knees: no swelling, no redness, no warmth, no TTP, FROM. Tenderness bilateral Pes Anserine bursa Ankles: no swelling, no redness, no warmth, no TTP, FROM Feet: no pain on MTP squeeze Skin: no eruptions or lesions Neuro: CNII-XII intact, motor and sensory systems grossly intact LABORATORY Component Ref Range & Units 2 yr ago SHAHAB SCREEN ON HEP 2 Negative Negative C3 81 - 157 mg/dl 73 Low C4 12 - 39 mg/dL 19 ANTI THYROID PEROXIDASE AB (<5.6) IU/ML 38.8 High Component Value Date RHEUMATOIDFA <10.0 05/10/2023 Lab Results Component Value Date ANTCCP <8 05/10/2023 STUDIES X-ray wrist 05/17/2023: FINDINGS: No acute fracture or dislocation. No soft tissue swelling. Bones slightly demineralized. Mild marginal spurring at the first CMC and STT joints. No periarticular bone loss or erosion. ASSESSMENT/PLAN Diagnoses and all orders for this visit: Fibromyalgia Primary osteoarthritis involving multiple joints Pes anserinus bursitis of both knees Patient presents to our clinic to transfer care from previous Seismograph Recorder. Patient has previously been diagnosed with a reported inflammatory arthritis for which she currently is on Plaquenil and Celebrex. She says these meds do help but still has chronic pain. Patient also has previously been diagnosed with Fibromyalgia and currently not on any therapy (failed gabapentin and Cymbalta in the past). Patient notes that overall her she had some improvement in her hand and knee pains with her current regimen, however she continues to have stiffness and pain in those joints (despite recent multiple courses of steroids that did not improve her symptoms). On examination she has no synovitis buthas significant pain on the pes anserinus bursitis and trochanteric bursitis with tenderness on multiple trigger points. In the setting of this presentation along with reported poor sleep and historyof depression with negative ESR/CRP, RF, Anti-CCP and SHAHAB symptoms are most consistent with Fibromyalgia some underlying osteoarthritis Patient is here for bilateral pes anserinus injections Injection Tendon, Ligament, or Aponeurosis Date/Time: 01/12/2025 1:00 PM Performed by: Jennifer Chaudhary MD Authorized by: Elder Staples DO Consent: Verbal consent obtained: Yes Written consent obtained: Yes Risk and benefits discussed: Yes Written informed consent was obtained from the patient. [place] Protocol: Procedure consent matches procedure scheduled: Yes All relevant documents/tests are correctly identified, labeled, and matched to patient: Yes Relevant tests/ Imaging studies available/reviewed: Yes Correct site marked: Yes Required blood products, implants, devices and special equipment available: Yes Immediately prior to the procedure a time out was called: Yes An attending physician was present for the procedure OR the procedure was performed by an Advanced Practice Provider: Yes Procedure Details: Location: knee Site Prep: Betadine Topical Anesthetic: ethyl chloride (cold spray) Syringe Size:10 mL Needle size: 25 G Approach: anterior Medications administered: 40 mg methylPREDNISolone acetate 40 mg/mL; 1 mL lidocaine w/ preservative1% (10 mg/mL) Dressing: Band-Aid Post-procedure Details: Patient tolerance: patient tolerated the procedure well with no immediate complications Instructions: post-procedure instructions were reviewed Discharge: patient discharged from clinic in stable condition - c/w Plaqunil and Celebrex for now as it is helping patient and previous assessment of inflammation on examination with previous providers. However, currently no signs of synovitis - reviewed recent labs, normal - patient saw an Optometry recently, will need to follow yearly - With respect to fibromyalgia, I educated the patient extensively on this condition - Encouraged to continue exercising and increase slowly the load of exercise. Advised patient to pursue aqua therapy and PT -Encouraged to work on improving sleep duration and patterns. Sleep hygiene discussed. Has sleep medicine referral in place -Cognitive behavioral therapies may be used in patients with fibromyalgia. Asked to discuss with PCP - recommended getting a knee band for her bilateral bursa -Follow up in 8-10 months Case discussed with Dr. Staples SIGNATURE: Jennifer Chaudhary MD Rheumatology PGY-4 documented in this encounter Plan of Treatment Upcoming Encounters Date Type Department Care Team (Late st Contact Info) Description 11/15/2025 11:30 AM EST Follow-Up [facility] [address] [place] [address] It Infrastructure Manager: Jennifer Carcamo MD [address] [place] [address] documented as of this encounter Procedures * Due to [place] state law, this organization might not be sharing negative HIV tests. Procedure Name Priority Date/Time Associated Diagnosis Comments INJECTION TENDON, LIGAMENT, OR APONEUROSIS Routine 01/12/2025 1:00 PM EDT Pes anserinus bursitis of both knees documented in this encounter Results * Due to [place] state law, this organization might not be [...] informed consent was obtained from the patient. [place] Protocol: ? Procedure consent matches procedure scheduled: [...] DO IN CLINIC/BEDSIDE ORDERABLES F inal Result documented in this encounter Visit Diagnoses Diagnosis Pes anserinus bursitis of both knees- Primary documented in this encounter Administered Medications Inactive Administered Medications - up to 3 most recent administrations Medication Order MAR Action Action Date Dose Rate Site lidocaine w/ preservative (XYLOCAINE) 1% (10 mg/mL) injection 1 mL 1 mL, injection, One-time injection, Starting on Tu01/12/25 at 1300, 1 dose, Until 01/12/25 at 1300Indications:Pes anserinus bursitis of both knees Given 01/12/2025 1:00 PM EDT 1 mL methylPREDNISolone acetate (DEPO-Medrol) injection 40 mg 40 mg, intra-articular, One-time injection, Starting on Sat01/12/25 at 1300, 1 dose, Until 01/12/25 at 1300Indications:Pes anserinus bursitis of both knees Given 01/12/2025 1:00 PM EDT 40 mg documented in this encounter Care Teams Laborer Wrecking And Salvaging Relationship Specialty Start Date End Date Mirna Meza [address] [place] [id number] PCP - General Nurse Practitioner Family 12/24/24 documented as of this encounter
--- OUTSIDE RECORDS SUMMARY | 2025-01-18 09:59 | XMS_ITS | Encounter Summary ---
Author Organization [employer] Address [address] [facility] [place] [address] Care Team Providers Care Steam Press Tender Name Role Phone Schwarz, Diann MOUNTAIN GUIDE Unavailable [phone] Mirna Mzea Primary Care Provider [phone] Reason for Visit * Reason Onset Date Comments Joint Swelling 12/16/2024 Encounter Details Date Type Department Care Team (Late st Contact Info) Description 12/16/2024 Telephone [facility] [address] [phone] Mirna Meza FNP [address] [place] [address] [phone] Joint Swelling Social History Tobacco Use Types Packs/Day Years [...] encounter Miscellaneous Notes * Telephone Encounter - Elizabeth Cabral LPN - 12/16/2024 3:30 PM EST She saw a assistant professor of biochemistry a couple of weeks ago and they reported labs didn't show inflammation. This flare started Saturday with redness, warm to touch and increased, visible swelling. She wants to know if you can do anything to help. Offered appointment tomorrow for this problem but she is leaving tonight and will be gone for a couple of days. She already has a physical appointment scheduled for Saturday. * Telephone Encounter - Lexy Qiu - 12/16/2024 1:59 PM EST Patient is calling because she is experiencing a lot of joint pain in hands and knees and seems to be having a bad flare up from arthritis, inflammation markers are not horrible but swollen and in a lot of pain. Call back # [phone] documented in this encounter Plan of Treatment Upcoming Encounters Date Type Department Care Team (Late st Contact Info) Description 01/28/2025 9:20 AM EDT Office Visit [address] [address] Mirna Meza FNP [address] [place] [address] documented as of this encounter Visit Diagnoses Not on filedocumented in this encounter Additional Health Concerns Assessment Noted Time PHQ-9 Depression Total Score: 7 07/16/20 24 8:02 AM EDT documented as of this encounter Care Teams Steam Press Tender Relationship Specialty Start Date End Date Mirna Meza FNP [address] [place] [address] PCP - General Family Medicine 12/04/22 Diann Schwarz FNP [address] [place] [address] Family Medicine 08/10/22 documented as of this encounter
--- OUTSIDE RECORDS SUMMARY | 2025-01-18 09:59 | XMS_ITS | Encounter Summary ---
Author Organization [employer] Address [address] [facility] [address] [place] [address] Care Team Providers Care Equipment Scheduler Name Role Phone Diann Schwarz CARBURETOR REBUILDER Unavailable [phone] Mirna Meza CARBURETOR REBUILDER Primary Care Provider [phone] Encounter Details Date Type Department Care Team (Late st Contact Info) Description 01/28/2024 Orders Only [facility] [address] [place] [address] Provider, Not In System Social [...] Description 01/28/2025 9:20 AM EDT Office Visit [address] [address] Mirna Meza FNP [address] [place] [address] documented as of this encounter Procedures Procedure [...] on filedocumented in this encounter Care Teams Equipment Scheduler Relationship Specialty Start Date End Date Mirna Meza FNP [address] [place] [address] PCP - General Family Medicine 12/04/22 Diann Schwarz FNP [address] [place] [address] Family Medicine 08/10/22 documented as of this encounter
--- OUTSIDE RECORDS SUMMARY | 2025-01-18 09:59 | XMS_ITS | Encounter Summary ---
Demographics Address [address] [place] [address] Home Phone Mobile Phone Preferred Language Faroese Marital Status Catholic Affiliation Unknown Race White Ethnic Group Not or Lati no Author Organization [facility] Address [address] [place] [address] Care Team Providers Care Township Supervisor Name Role Phone Mirna Meza Primary Care Provider [phone] Encounter Details Date Type Department Care Team (Late st Contact Info) Description 01/05/2025 Telephone [facility] [address] [place] [address] Blind Hanger: Jennifer Carcamo MD [address] [place] [address] Social History Tobacco Use Types Packs/Day Years Used Date Smoking Tobacco: Never Assessed Comments Unknown Sex and Gender Information Value Date Recorded Sex Assigned at Female 12/24/2024 10:38 AM EDT Legal Sex Female 10:35 AM EDT Gender Identity Female 01/10/2025 5:21 PM EDT Sexual Orientation Straight 01/10/2025 5: 21 PM EDT documented as of this encounter Miscellaneous Notes * Telephone Encounter - Katherin Ferrell - 01/05/2025 2:32 PM EDT Who is calling: Siria Stark Call back Number: [phone] The reason for call: is scheduled with Dr Chaudhary in February but would like a sooner appointment, says herhand swelling has come back -Medication Questions/Refills: on her second round of steroids from her PCP -Medication Reaction: says it sometimes helps, but still experiences swelling and fatigue and shortness of breath, is on her last dose tomorrow documented in this encounter Plan of Treatment Upcoming Encounters Date Type Department Care Team (Late st Contact Info) Description 11/15/2025 11:30 AM EST Follow-Up [facility] [address] [place] [address] Blind Hanger: Jennifer Carcamo MD [address] [place] [phone] documented as of this encounter Visit Diagnoses Not on filedocumented in this encounter Care Teams Township Supervisor Relationship Specialty Start Date End Date Mirna Meza [address] [place] [id number] PCP - General Nurse Practitioner Family 12/24/24 documented as of this encounter
--- OUTSIDE RECORDS SUMMARY | 2025-01-18 09:59 | XMS_ITS | Encounter Summary ---
Demographics Address [address] [place] [address] Home Phone Mobile Phone Email Address Preferred Language en Marital Status Mu-Ism Affiliation Unknown Race White Ethnic Group Not or Lati no Author Organization [facility] Address [address] [place] [address] Care Team Providers Care Staff Analyst Name Role Phone Schwarz, Diann CELLOPHANE TESTER Unavailable [phone] Mirna Meza Primary Care Provider [phone] Encounter Details Date Type Department Care Team (Late st Contact Info) Description 01/08/[address] [phone] Mirna Meza FNP [address] [place] [address] Social History Tobacco Use Types Packs/Day [...] encounter Miscellaneous Notes * Telephone Encounter - Lexy Qiu - 01/08/2025 1:25 PM EDT Patient is calling to have her referral for sleep sent to Dr. Amadeo Winn Back [address] [place] [address] Phone/fax #[phone] documented in this encounter Plan of Treatment Upcoming Encounters Date Type Department Care Team (Late st Contact Info) Description 01/28/2025 9:20 AM EDT Office Visit [address] [address] Mirna Meza FNP [address] [place] [address] documented as of this encounter Visit Diagnoses Not on filedocumented in this encounter Additional Health Concerns Assessment Noted Time PHQ-9 Depression Total Score: 7 07/16/20 24 8:02 AM EDT documented as of this encounter Care Teams Staff Analyst Relationship Specialty Start Date End Date Mirna Meza FNP [address] [place] [address] PCP - General Family Medicine 12/04/22 Diann Schwarz FNP [address] [place] [phone] Family Medicine 08/10/22 documented as of this encounter
--- OUTSIDE RECORDS SUMMARY | 2025-01-18 09:59 | XMS_ITS | Encounter Summary ---
Demographics Address [address] [place] [id number] Home Phone Mobile Phone Preferred Language Turkish Marital Status Baptism Affiliation Unknown Race White Ethnic Group Not or Lati no Author Organization [facility] Address [address] [place] [address] Care Team Providers Care Packager Or Packer And Weigher Name Role Phone Mirna Meza Primary Care Provider Encounter Details Date Type Department Care Team (Late st Contact Info) Description 01/08/2025 Telephone [facility] [address] [place] [address] [phone] Lumber Tying Machine Operator: Jennifer Carcamo MD [address] [place] [address] Social History Tobacco Use Types Packs/Day [...] encounter Miscellaneous Notes * Telephone Encounter - Erum Del Cid - 01/08/2025 1:59 PM EDT Pt calling for Acupuncture and Aqua therapy referral, discussed at last appt. documented in this encounter Plan of Treatment Upcoming Encounters Date Type Department Care Team (Late st Contact Info) Description 11/15/2025 11:30 AM EST Follow-Up [facility] [address] [place] [address] Lumber Tying Machine Operator: Jennifer Carcamo MD [address] [place] [address] documented as of this encounter Visit Diagnoses Not on filedocumented in this encounter Care Teams Packager Or Packer And Weigher Relationship Specialty Start Date End Date Mirna Meza [address] [place] [phone] PCP - General Nurse Practitioner Family 12/24/24 documented as of this encounter
--- OUTSIDE RECORDS SUMMARY | 2025-01-18 09:59 | XMS_ITS | Data Portability ---
Demographics Address [address] [place] [address] Home Phone Mobile Phone Work Phone Email Address Preferred Language en Marital Status Unknown Sabianism Affiliation Unknown Race White Ethnic Group Not or Lati no Author Organization [place] - [facility], All[facility] Address [address] [address] Care Team Providers Care Adult Nurse Practitioner Name Role Phone JAVAD CABRERA Primary Care [...] Time Details Appointments Establish ed 15 2024 03:00P M ROCCO COTTO PA-C Not available Not available Not available [...] : 4 1:11 PM (389.05) Not Available [facility] 4 02:56:41 Impacted cerumen 09199736 Active 2013 Impacted cerumen; Note: Date Diagnosed : 4 12:39 PM (380.4) Not Available [facility] 4 02:56:43 Impacted cerumen in right ear 16193925004 56900 Active 2016 Impacted cerumen, right ear; Note: Date Diagnosed : 10/29/2016 1:32 PM (H61.21) Not Available [facility] 4 02:56:43 Mixed conductiv e and sensorine ural hearing loss of left ear 89471856398 107 Active 2015 Mixed conductiv e and sensorine ural hearing loss, unilatera l, left ear, with unrestric flavia hearing on the contralat eral side; Note: Date Diagnosed : 11/02/2015 3:00 PM (H90.72) Not Available [facility] 4 02:56:41 Allergic rhinitis 86032102 Active 2015 Allergic rhinitis, unspecifi ed; Note: Date Diagnosed : 04/19/2016 9:48 AM (J30.9) Not Available [facility] 4 02:56:42 Referred otalgia 11283653 Active 2013 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; Note: Date Diagnosed : 4 12:39 PM (388.72) Not Available [facility] 4 02:56:42 Pain of right temporoma ndibular joint 78286650311 932122 Active 2016 Arthralgi a of right temporoma ndibular joint; Note: Date Diagnosed : 10/29/2016 1:32 PM (M26.621) Not Available [facility] 4 02:56:42 Conductiv e hearing loss 67519398 Active 2015 Conductiv e hearing loss, unilatera l, left ear, with unrestric flavia hearing on the contralat eral side; Note: Date Diagnosed : 11/02/2015 1:22 PM (H90.12) Not Available [facility] 4 02:56:41 Impacted cerumen of bilateral ears 76181402381 99252 Active 2015 Impacted cerumen, bilateral ; Condition : recurrent Note: Date Diagnosed : 09/13/2015 10:51 AM (H61.23) Impacte d cerumen, bilateral ; Condition : recurrent Note: Date Diagnosed : 04/15/2018 9:44 AM (H61.23) Not Available [facility] 4 02:56:40 Problem Notes None recorded. Procedures Surgical History Date Name Laterality Status Provider Name and Address Organization Details Recorded Time 4 Cerumen removal without microscope bilat completed EDDIE RDZ PA-C [address] [place] [address],[address], [phone], [facility] 08/10/2024 15:18:48 Imaging Results None recorded. Procedure Notes None recorded. Medical Equipment None Reported. Allergies Allergen ID Allergen Name Allergen Category Reaction Reaction Severity Criticality Documentation Date Start Date Code Code System Note Provider Name and Address Organization Details Recorded Time 61634 penicilli n V potassium medicatio n other Not available Not available 02/25/202468757 5 RxNorm React ion: unkno wn, unspe cifie d;; Not Available [facility] 4 01:05:11 65396 Substance with sulfonami de structure and antibacte rial mechanism of action (substanc e) medicatio n other Not available Not available 02/25/2024 16871 8003 SNOMED React ion: unkno wn, unspe cifie d;; Not Available [facility] 4 01:05:11 Medications Name Sig Start Date Stop Date Status Note LastModified by Organization Details LastModified Time gabapenti n 600 mg tablet 2018 active Medicati on ID: [id number] D uration Value: 90 Brand Name: gabapent [...] mg tablet 11/02 completed Medicati on ID: 09261 Du ration Value: 2 Reason: () Brand Name: acetamin ophen-co deine Se nd Method: E-Prescr ibed Sub s Allowed: subs OK Medic ationGen ericName : acetamin ophen-co deine Not Available Not Available Not Available levothyro xine 75 mcg tablet active Not Available Not Available Not Available erythromy greg 250 mg tablet 11/02 completed Medicati on ID: 25653 Du ration Value: 7 Reason: () Brand Name: erythroluis ycin Sen d Method: E-Prescr ibed Sub s Allowed: subs OK Medic ationGen ericName : erythroluis ycin Not Available Not Available Not Available [...] mcg tablet 04/07 completed Medicati on ID: 12604 Du ration Value: 90 Reason: () Brand [...] mg capsule 04/07 completed Medicati on ID: [id number] D uration Value: 90 Reason: () Brand [...] aerosol inhaler 2018 active Medicati on ID: [id number] D uration Value: 75 Brand Name: albutero [...] aerosol inhaler 2018 active Medicati on ID: [id number] D uration Value: 90 Brand Name: Flovent [...] Updated DateTime 08/10/2024 152.4 cm 27.3 kg/m2 85664.93 g Manjula Massey [place] - [facility] 08/10/2024 15:12:39 Social History None recorded. Functional Status None recorded. Mental Status None recorded. Family History Nothing Reported. Medical History No medical history recorded. Gynecological HistoryNo gynecological history recorded. Obstetrics History GPAL:G 0 P 0 0 0 0 Past Encounters Encounter ID Performer Location Encounter Start Date Encounter Closed Date Diagnosis/Indication Diagnosis SNOMED-CT Code Diagnosis ICD10 Code Diagnosis Note [id number] JESUSITA DEL ANGEL MD [facility] [address] [address] 08/10/2024 15:03:18 08/10/2024 15:20:31 Impacted cerumen of bilateral ears [id number] 407816 H61.23 Health Concerns Section Related Observation LastModified [...] with her hearing aids. JESUSITA HARRIS MD [address] [place] [address], [address], [place] - [facility] 08/10/2024 16:30:04 OBGyn Episode No OBEpisode recorded.
--- OUTSIDE RECORDS SUMMARY | 2025-01-18 09:59 | XMS_ITS | Encounter Summary ---
Author Organization [employer] Address [address] [facility] [address] [place] [address] Care Team Providers Care Port Steward Name Role Phone Chong Diann [employer] CR[employer] HEAD Unavailable [phone] Mirna Meza Primary Care Provider [phone] Encounter Details Date Type Department Care Team (Late st Contact Info) Description 12/04/2023 Abstract [facility] [address] [place] [phone] Mirna Meza FNP [address] [place] [address] Social History Tobacco Use Types Packs/Day Years [...] Description 01/28/2025 9:20 AM EDT Office Visit [address] [address] Mirna Meza FNP [address] [place] [address] documented as of this encounter Procedures Procedure Name Priority Date/Time Associated Diagnosis Comments COLONOSCOPY Routine 11/22/2023 documented in this encounter Results * Colonoscopy (11/22/2023) Colonoscopy Normal Normal Comment:INTERNAL HEMORRHOIDS , POLYPS REMOVED, MILD DIVERTICULOSIS NOTED ON EXAM us Historical Provider HEALTH MAINTENANCE Final Result documented in this encounter Visit Diagnoses Not on filedocumented in this encounter Care Teams Port Steward Relationship Specialty Start Date End Date Mirna Meza FNP [address] [place] [address] PCP - General Family Medicine 12/04/22 Diann Schwarz FNP [address] [place] [id number] Family Medicine 08/10/22 documented as of this encounter
--- OUTSIDE RECORDS SUMMARY | 2025-01-18 09:59 | XMS_ITS | Clinical Summary ---
Author Organization [facility] Address [address] [place] [address] 7 [place] [address] Care Team Providers Care Underwater Roboticist Name Role Phone Diann Schwarz AUTOMOTIVE LUBE TECHNICIAN Unavailable [phone] Mirna Meza AUTOMOTIVE LUBE TECHNICIAN Primary Care Provider [phone] Allergies Active Allergy Reactions Criticality Noted Date [...] 4 TO 6 HOURS NEEDED FOR COUGH 022 Active Calcium Carbonate-Vitamin D (Calcium 600 +D High Potency) 600-10 MG-MCG tablet Take by mouth. Activ e Flovent HFA 44 MCG/ACT inhaler INHALE 2 (TWO) PUFF TWICE DAILY. RINSE MOUTH AFTER USE. 022 Active hydroxychloroquin e (Plaquenil) 200 MG tablet Take 300 mg by mouth in the morning. 023 Active melatonin 5 MG tablet Take by mouth. Activ e Acetaminophen (TYLENOL ARTHRITIS PAIN PO) Take by mouth. Activ e celecoxib (CeleBREX) 100 MG capsuleIndication s:Inflammatory arthritis Take 1 capsule (100 mg) by mouth 2 times daily. 60 capsule 023 Active levothyroxine (Synthroid, Levoxyl) 75 MCG tabletIndications :Madison's thyroiditis TAKE 1 TABLET BY MOUTH BEFORE BREAKFAST 90 tablet 3 024 Active magnesium 250 MG tablet Take by mouth. Activ e rOPINIRole (Requip) 3 MG tabletIndications :RLS (restless legs syndrome) TAKE 1 TABLET BY MOUTH AT BEDTIME 90 tablet 3 024 Active cholecalciferol (Vitamin D-3) 10 MCG (400 UNIT) tabletIndications :Fibromyalgia TAKE 1 TABLET BY MOUTH EVERY DAY 90 tablet 3 024 Active montelukast (Singulair) 10 MG tabletIndications :Mild intermittent asthma without complication TAKE 1 TABLET BY MOUTH AT BEDTIME 90 tablet 3 024 Active omeprazole (PriLOSEC) [address] capsuleIndication s:Gastroesophagea l reflux disease without esophagitis TAKE 1 CAPSULE BY MOUTH BEFORE BREAKFAST 90 capsule 3 024 Active fluticasone (Flonase) 50 MCG/ACT nasal sprayIndications: Allergic rhinitis, unspecified seasonality, unspecified trigger Administer 1 spray into each nostril Once per day. 42 g 3 025 Active tobramycin-dexAME THasone (Tobradex) ophthalmic suspension INSTILL 1 DROP INTO BOTH EYES THREE TIMES A DAY USE FOR 2 WEEKS. 025 Active celecoxib (CeleBREX) 200 MG capsuleIndication s:Fibromyalgia,In flammatory arthritis Take 1 capsule (200 mg) by mouth 2 times daily. 60 capsule 025 2024 Active methylPREDNISolon e (Medrol Dospak) 4 MG tabletsIndication s:Inflammatory arthritis Follow schedule on package instructions 21 tablet 025 Active PARoxetine (Paxil) 20 MG tabletIndications :Generalized anxiety disorder Take 1 tablet (20 mg) by mouth in the morning. 90 tablet 3 025 Active escitalopram (Lexapro) 10 MG tabletIndications :Generalized anxiety disorder TAKE 1 TABLET (10 MG) BY MOUTH ONCE PER DAY. 90 tablet 1 024 2024 Discontinued PARoxetine (Paxil) 20 MG tabletIndications :Generalized anxiety disorder Take 1 tablet (20 mg) by mouth in the morning. 90 tablet 3 025 2024 Discontinued(R eorder (will not trigger notification to Pharmacy)) levoFLOXacin (Levaquin) 750 MG tabletIndications :Acute bacterial rhinosinusitis Take 1 tablet (750 mg) by mouth Once per day for 5 days. 5 tablet 025 2024 Discontinued predniSONE (Deltasone) 10 MG tabletIndications :Fibromyalgia,Inf lammatory arthritis Take 1 tablet (10 mg) by mouth Once per day for 10 days. 10 tablet 025 2024 Active Problems Problem Noted Date Diagnosed Date [...] (08/01/2023): [place]. Flores [place] [facility] [place] c. 2017 to current No [...] Encounters Date Type Department Care Team Description 01/15/[address] [phone] Mirna Meza FNP 01/08/[address] [address] Mirna Meza FNP Generalized anxiety disorder 01/08/[address] [address] Mirna Meza FNP 12/31/2024 3:00 PM EDT Office Visit [address] [address] Mirna Meza FNP Joint swelling (Primary Dx); Polyarthralgia; Other fatigue; Inflammatory arthritis; Mild intermittent asthma without complication 12/31/[address] [address] Mirna Meza FNP 12/28/[address] [address] Mirna Meza FNP 12/25/2024 Telephone [facility] [address] [facility] [address] [place] [phone] Mirna Meza FNP 12/24/[address] [phone] Mirna Meza FNP 12/22/2024 2:00 PM EDT Office Visit [address] [address] Mirna Meza FNP Fibromyalgia (Primary Dx); Inflammatory arthritis; Snoring; Daytime somnolence 12/16/2024 Telephone [facility] [address] [facility] [address] [place] [address] Mirna Meza FNP Joint Swelling 12/10/2024 10:00 AM EST Office Visit [address] [phone] Shaq Rodriguez AGNP Acute bacterial rhinosinusitis (Primary Dx) 12/08/[address] [phone] Mirna Meza FNP Sinusitis 12/04/[address] [address] Mirna Meza FNP 12/02/2024 9:00 AM EST Office Visit [address] [address] Meghann Webster NP Acute non-recurrent maxillary sinusitis (Primary Dx) 12/01/[address] [phone] Mirna Meza FNP 11/18/[address] [phone] Mirna Meza FNP Allergic rhinitis, unspecified seasonality, unspecified trigger 11/04/[address] [phone] Mirna Meza FNP Generalized anxiety disorder from Last 3 Months Immunizations Name Administration Dates Next Due Influenza injectable quadriv alent IIV4 with preservative 07/22/2018,12/09/2017,07/29/2015 Influenza injectable quadriv alent preservative free 08/02/2023,08/10/2022,10/04/2021,2019,09/03/2019,09/04/2016 Influenza, IIV3, injectable 07/13/2011 Influenza, Unspecified 10/04/2021,2019,07/25/2016,2012 Influenza, seasonal, injecta ble, preservative free 08/03/2024 Moderna Covid-19 Vaccine 12+ 02/22/2021,01/26/20 21 Novel [id number], nasal 08/04/2009 Pfizer Covid-19 Vaccine 12+ 03/04/2022, Pfizer Covid-19 Vaccine 12+ Bivalent 08/10/2022 Pfizer Covid-19 Vaccine 12+ terri-sucrose (Mane Cap) 03/04/2022 Pneumococcal Conjugate PCV 20 08/23/2024 Td (adult), unspecified 03/11/2002 Tdap 10/01/2022,09/04/2016,05/07/2012 Zoster, Recombinant 08/03/2024 Family History Medical History Relation Name Comments [...] Sign Reading Time Taken Comments Blood Pressure 122/74 12/31/2024 3:09 PM EDT Pulse 60 12/31/2024 3:09 PM EDT Temperature 36.9 ??C (98.4 ??F) 12/31/2024 3:09 PM ED T Respiratory Rate - - Oxygen Saturation 97% 12/31/2024 3:09 PM EDT Inhaled Oxygen Concentration - - Weight 66.2 kg (146 lb) 12/31/2024 3:09 PM EDT Height 154.9 cm (5' 1 ) 12/31/2024 3:09 PM EDT Body Mass Index 27.59 12/31/2024 3:09 PM EDT Plan of Treatment Upcoming Encounters Date Type Department Care Team (Late st Contact Info) Description 01/28/2025 9:20 AM EDT Office Visit [address] [address] Mirna Meza FNP [address] [place] [address] Health Maintenance Due Date Last Done Comments CT Colonography 1965 FIT DNA/Cologuard 1965 FIT 1965 FOBT 1965 HIV Screening 1965 Sigmoidoscopy 1965 Hepatitis B Vaccines (1 of 3 - 19+ 3-dose series) 1984 Zoster Vaccines (2 of 2) 09/28/2024 08/03/2024 Mammogram 12/26/2024 12/27/2023, 12/12, 01/09/2022, Additional history exists Alcohol/Substance Use Screening 02/11/2025 02/12/2024 Depression Screening 07/16/2025 07/16/2024, 07/16/20 24 SDOH Screening 12/02/2025 12/02/2024 Tobacco Screening 12/31/2025 12/31/2024 Cervical Cancer Screening 09/04/2028 HPV/Cotest 09/04/2028 09/04/2023 [...] history exists Pneumococcal Vaccine: 50+ Years Completed 08/23/2024 HIB Vaccines Aged Out No [...] Procedure Name Priority Date/Time Associated Diagnosis Comments TICK BORNE DISEASE BY PCR Routine 12/31/2024 3:49 PM EDT Joint swelling Polyarthralgia Other fatigue Inflammatory arthritis COMPREHENSIVE METABOLIC PANEL Routine 12/31/2024 3:49 PM EDT Joint swelling Polyarthralgia Other fatigue Inflammatory arthritis CBC WITH AUTO DIFFERENTIAL Routine 12/31/2024 3:49 PM EDT Joint swelling Polyarthralgia Other fatigue Inflammatory arthritis VITAMIN D,25-OH,TOTAL,IA Routine 12/31/2024 3:49 PM EDT Joint swelling Polyarthralgia Other fatigue Inflammatory arthritis VITAMIN C Routine 12/31/2024 3:49 PM EDT Joint swelling Polyarthralgia Other fatigue Inflammatory arthritis IRON, TIBC AND FERRITIN PANEL Routine 12/31/2024 3:49 PM EDT Joint swelling Polyarthralgia Other fatigue Inflammatory arthritis THYROID PANEL Routine 11/09/2024 10:15 AM EST Madison's thyroiditis BI MAMMOGRAM SCREENING TOMOSYNTHESIS BILATERAL Routine 12/27/2023 2:15 PM EDT HM COLONOSCOPY Routine 11/22/2023 PAP, LB WITH CT/GC AND HPV Routine 09/04/2023 5:31 PM EST HEPATITIS C ANTIBODY Routine 01/27/2018 from Last 3 Months or Most Recently Relevant to Health Maintenance Results * Vitamin D, 25-Hydroxy, Total, Immunoassay (12/31/2024 3:49 PM EDT) Vitamin D,25-OH, Total, IA 35 30 - 100 ng/mL [employer] Comment: Vitamin D Status ? 25-OH Vitamin D: Deficiency: ?<20 ng/mL Insufficiency: ? 20 - 29 ng/mL Optimal: ? > or = 30 ng/mL For 25-OH Vitamin D testing on patients on D2-supplementation and patients for whom quantitation of D2 and D3 fractions is required, the QuestAssureD(TM) 25-OH VIT D, (D2,D3), LC/MS/MS is recommended: order code [id number] (patients >2yrs). See Note 1 Note 1 For additional information, please refer to http://education.Sidecar.me/faq/XUE937 (This link is being provided for informational/ educational purposes only.) Blood Venous blood specimen / Unknown 12/31/2024 3:49 PM EDT 12/31/2024 3:49 PM EDT Mirna Meza [facility] LAB BLOOD ORDERABLES Final Res ult [facility] [address], [place] [address] [facility] [place] [facility] [address] [place] [address] * Tick-borne Disease, Acute Molecular Panel (12/31/2024 3:49 PM EDT) Anaplasma phagocytophilum DNA, QL Real Time PCR NOT DETECTED NOT DETECTED [facility] [place] [facility] [facility] Comment: This test was developed and its analytical performance characteristics have been determined by [facility]. It has not been cleared or approved by the FDA. This assay has been validated pursuant to the CLIA regulations and is used for clinical purposes. Babesia microti DNA, Real Time PCR NOT DETECTED NOT DETECTED [facility] Comment: This test was developed and its analytical performance characteristics have been determined by [facility]. It has not been cleared or approved by the FDA. This assay has been validated pursuant to the CLIA regulations and is used for clinical purposes. Borrelia Miyamotoi DNA, Ql Real Time PCR NOT DETECTED NOT DETECTED [facility] [place] [facility] Comment: This test was developed and its analytical performance characteristics have been determined by [facility]. It has not been cleared or approved by the FDA. This assay has been validated pursuant to the CLIA regulations and is used for clinical purposes. Ehrlichia chaffensis DNA Real Time PCR NOT DETECTED NOT DETECTED [facility] [place] [facility] [facility] Comment: This test was developed and its analytical performance characteristics have been determined by [facility]. It has not been cleared or approved by the FDA. This assay has been validated pursuant to the CLIA regulations and is used for clinical purposes. Borrelia Species DNA, Ql Real Time PCR NOT DETECTED NOT DETECTED [facility] [place] [facility] Comment: This test was developed and its analytical performance characteristics have been determined by [facility]. It has not been cleared or approved by the FDA. This assay has been validated pursuant to the CLIA regulations and is used for clinical purposes. For additional information, please refer to https://education.Haivision/faq/soq337 (This link is being provided for informational/ educational purposes only.) Comment [facility] [place] [facility] Comment: A negative result does not exclude Borrelia infection as the concentration of the organism in blood may be low or non-existent in patients with Lyme disease, and may depend on timing of specimen collection from onset of symptoms. Clinical correlation is recommended and additional studies such as serologic testing may be indicated. 12/31/2024 3:49 PM EDT 12/31/2024 3:49 PM EDT Mirna [facility] LAB BLOOD ORDERABLES Final Res ult Performing Organization Address [facility]/ZIP Co de Phone Number [facility] [address], [facility] [place] [address] [facility] [place] [facility] [address] [place] [address] * Iron, TIBC And Ferritin Panel (12/31/2024 3:49 PM EDT) [facility] Iron, Total 71 45 - 160 mcg/dL [facility] [place] [facility] Iron Binding Capacity 352 250 - 450 mcg/dL (calc) [facility] [place] [facility] % Saturation 20 16 - 45 % (calc) [facility] [place] [facility] Ferritin 41 16 - 232 ng/mL [facility] [place] [facility] Blood 12/31/2024 3:49 PM EDT 12/31/2024 3:49 PM EDT Mirna Meza [facility] LAB BLOOD ORDERABLES Final Res ult Performing Organization Address [facility] Co de Phone Number [facility] [address], [facility] [place] [address] [facility] [place] [facility] [address] [place] [address] * CBC auto differential (12/31/2024 3:49 PM EDT) [facility] White Blood Cell Count 6.7 3.8 - 10.8 Thousand/ uL [facility] [place] [facility] Red Blood Cell Count 4.56 3.80 - 5.10 Million/u L [facility] [place] [facility] Hemoglobin 13.4 11.7 - 15.5 g/dL [facility] [place] [facility] Hematocrit 40.8 35.0 - 45.0 % [facility] [place] [facility] MCV 89.5 80.0 - 100.0 fL [facility] [place] [facility] MCH 29.4 27.0 - 33.0 pg [facility] [place] [facility] MCHC 32.8 32.0 - 36.0 g/dL [facility] [place] [facility] Comment: For adults, a slight decrease in the calculated MCHC value (in the range of 30 to 32 g/dL) is most likely not clinically significant; however, it should be interpreted with caution in correlation with other red cell parameters and the patient's clinical condition. RDW 12.9 11.0 - 15.0 % [facility] [place] [facility] Platelet Count 257 140 - 400 Thousand/ uL [facility] [place] [facility] MPV 9.6 7.5 - 12.5 fL [facility] [place] [facility] Absolute Neutrophils 5,474 1,500 - 7,800 cells/uL [facility] Absolute Lymphocytes 864 850 - 3,900 cells/uL [facility] Absolute Monocytes 275 200 - 950 cells/uL [facility] [place] [facility] Absolute Eosinophils 54 15 - 500 cells/uL [facility] [place] [facility] Absolute Basophils 34 0 - 200 cells/uL [facility] [place] [facility] Neutrophils 81.7 % [facility] [place] [facility] Lymphocytes 12.9 % [facility] [place] [facility] Monocytes 4.1 % [facility] Eosinophils 0.8 % [facility] [place] [facility] Basophils 0.5 % [facility] [place] [facility] Blood Venous blood specimen / Unknown 12/31/2024 3:49 PM EDT 12/31/2024 3:49 PM EDT Mirna Meza [facility] LAB BLOOD ORDERABLES Final Res ult [facility] [address], [place] [address] [facility] [address] [place] [address] * Vitamin C (12/31/2024 3:49 PM EDT) Pathologist [facility] Vitamin C 0.6 0.3 - 2.7 mg/dL [facility] Comment: This test was developed and its analytical performance characteristics have been determined by [facility] [place]. It has not been cleared or approved by the FDA. This assay has been validated pursuant to the CLIA regulations and is used for clinical purposes. Blood Venous blood specimen / Unknown 12/31/2024 3:49 PM EDT 12/31/2024 3:49 PM EDT Mirna Meza AUTOMOTIVE LUBE TECHNICIAN LAB BLOOD ORDERABLES Final Res ult [facility] [address], [place] [address] [facility] [address] [facility] [place] [place] [address] * Comprehensive Metabolic Panel (12/31/2024 3:49 PM EDT) Pathologist [facility] Glucose 94 65 - 99 mg/dL [facility] [place] [facility] Comment: ? Fasting reference interval Urea Nitrogen (BUN) 7 7 - 25 mg/dL [facility] [place] [facility] Creatinine, Serum 0.71 0.50 - 1.03 mg/dL [facility] [place] [facility] eGFR 98 > OR = 60 mL/min/1. 73m2 [facility] [place] [facility] BUN/Creatinine Ratio SEE NOTE: 6 - 22 (calc) [facility] [place] [facility] Comment: ?? Not Reported: BUN and Creatinine are within ?? reference range. ? Sodium 137 135 - 146 mmol/L [facility] [place] [facility] Potassium 4.4 3.5 - 5.3 mmol/L [facility] [place] [facility] Chloride 103 98 - 110 mmol/L [facility] [place] [facility] Carbon Dioxide 27 20 - 32 mmol/L [facility] [place] [facility] Calcium 9.4 8.6 - 10.4 mg/dL [facility] [place] [facility] Protein, Total 6.7 6.1 - 8.1 g/dL [facility] [place] [facility] Albumin 4.6 3.6 - 5.1 g/dL [facility] [place] [facility] Globulin 2.1 1.9 - 3.7 g/dL (calc) [facility] [place] [facility] Albumin/Globuli n Ratio 2.2 1.0 - 2.5 (calc) [facility] [place] [facility] Bilirubin, Total 0.5 0.2 - 1.2 mg/dL [facility] [place] [facility] Alkaline Phosphatase 71 37 - 153 U/L [facility] [place] [facility] AST 16 10 - 35 U/L [facility] [place] [facility] ALT 18 6 - 29 U/L [facility] [place] [facility] Blood Venous blood specimen / Unknown 12/31/2024 3:49 PM EDT 12/31/2024 3:49 PM EDT Mirna [facility] LAB BLOOD ORDERABLES Final Res ult Performing Organization Address [facility] Co de Phone Number [facility] [address], [facility] [place] [address] [facility] [place] [facility] [address] [place] [phone] * Thyroid Panel (11/09/2024 10:15 AM EST) T3 Uptake 31 22 - 35 % [facility] [place] [facility] T4 (Thyroxine), Total 9.3 5.1 - 11.9 mcg/dL [facility] [place] [facility] Free T4 Index (T7) 2.9 1.4 - 3.8 [facility] [place] [facility] Blood Venous blood specimen / Unknown 11/09/2024 10:15 AM EST 11/09/2024 10:16 AM EST Narrative [facility] - 11/09/2024 9:50 PM EST FASTING:NO FASTING: NO Mirna Meza [facility] LAB BLOOD ORDERABLES Final Res ult Performing Organization Address [facility] Co de Phone Number [facility] [address] [place] [address], [place] [address] [facility] [place] [facility] [address] [place] [phone] * BI Mammogram Screening Tomosynthesis Bilateral (12/27/2023 [...] (Negative) Lay letter mailed to patient WSN: [id number] Ordering Physician: Mirna Meza Dictated By: ?Kassie Villavicencio MD Dictated Date/Time: ?12/27/23 4:25 pm Reviewed By: ?Kassie Villavicencio MD Signed By: ? Kassie Villavicencio MD Signed Date/Time: ? 12/27/23 4:25 pm Transcribed By: ? CSB Director Of Teacher Education Date/Time: ? 12/27/23 4:19 pm Birads: Procedure Note Donotuseinterpreter, Image - 12/27/2023 PROCEDURE: MM Digital Mammo [...] (Negative) Lay letter mailed to patient WSN: [id number] Ordering Physician: Mirna Meza Dictated By: Kassie Villavicencio MD Dictated Date/Time: 12/27/23 4:25 pm Reviewed By: Kassie Villavicencio MD Signed By: Kassie Villavicencio MD Signed Date/Time: 12/27/23 4:25 pm Transcribed By: OTILIA Director Of Teacher Education Date/Time: 12/27/23 4:19 pm Birads: Mirna Meza AUTOMOTIVE LUBE TECHNICIAN IMG BI PROCEDURES Final Result * Colonoscopy (11/22/2023) Colonoscopy Normal Normal Comment:INTERNAL HEMORRHOIDS , POLYPS REMOVED, MILD DIVERTICULOSIS NOTED ON EXAM Historical Provider HEALTH MAINTENANCE Final Result * PAP, LB with CT/GC and HPV (09/04/2023 5:31 PM EST) PAP, LB WITH CT/GC AND HPV Patient Name: SIRIA IRVING [facility] Comment: Patient : ?1965 (Age: 58) Lab Accession #: ? [id number] Collection Date: ? 09/04/2023 Accession Date: ? 09/06/2023 Sign Out Date: ? 09/12/2023 Tissue Source: 1: [employer]IOR [employer]LECT[employer] DESIGN ENGINEER PAP TEST, CERVICAL: Final Diagnosis: NEGATIVE FOR INTRAEPITHELIAL LESION OR MALIGNANCY. Atrophy. Satisfactory for evaluation. Partially obscuring inflammation present. Procedures/Addenda: Human Papilloma Virus, High-Risk (Any Dx) ? Status: Signed Out Interpretation: Negative Methodology: [employer] Aptima HPV mRNA assay (Nucleic Acid Amplification Test, NAAT). Clinical History: Date of Last Menstrual Period: ?? not available Menstrual History: ?? not available Contraceptive History: ??not available Ancillary Testing: ??HPV (any dx) Case imaged by the [employer]Prep Imaging System with manual rescreening or review. Performed at [facility] department of Cytology, Myrtle Cruz [place] History (other): ??Z12.4 Phone #: ??[phone], On-Call Pathologist: ??[id number] Testing performed or reported by [facility], a Service of [facility], [address] [place] [address] Clemente Love MD, Mosquito Sprayer [facility]# [id number] 09/04/2023 5:31 PM EST 09/06/2023 5:32 PM EST Mirna [facility] CYTOLOGY ORDERABLES Final Result [facility] [address] [place] [id number] * Hepatitis C Antibody (01/27/2018) Hepatitis C Antibody Nonreactive Blood Historical Provider HEALTH MAINTENANCE Final Result from Last 3 Months or Most Recently Relevant to Health Maintenance Insurance 10/[address] , [address] [place] [address] * Guarantor: Siria Irving Account Type Relation to Patient Date of Phone Billing Address Dental Self 1965 [address] [place] [address] * Guarantor: Siria Irving Account Type Relation to Patient Date of Phone Billing Address Personal/Family Self 10/15 [place], [place] * Guarantor: Siria Irving Account Type Relation to Patient Date of Phone Billing Address Personal/Family Self 10/15 [place], [place] * Guarantor: Siria Irving Account Type Relation to Patient Date of Phone Billing Address Personal/Family Self 10/15 [place], [place] Care Teams Underwater Roboticist Relationship Specialty Start Date End Date Mirna Meza FNP [address] [place] [address] PCP - General Family Medicine 12/04/22 Diann Schwarz FNP [address] [place] [id number] Family Medicine 08/10/22
--- OUTSIDE RECORDS SUMMARY | 2025-01-18 09:59 | XMS_ITS | Encounter Summary ---
Author Organization [employer] Address [address] [employer] [address] [place] [address] Care Team Providers Care Cover Assembler Name Role Phone Schwarz, Diann XEROX MACHINE ASSEMBLER Unavailable [phone] Mirna Meza Primary Care Provider [phone] Encounter Details Date Type Department Care Team ([facility] st Contact Info) Description 12/25/2024 Telephone [facility] [address] [phone] Mirna Meza FNP [address] [place] [address] [phone] Social History Tobacco Use Types Packs/Day Years [...] encounter Miscellaneous Notes * Telephone Encounter - Maura Pickard - 12/25/2024 9:24 AM EDT FYI for PCP patient wants dr to know she talked to her eye dr and they said the prednisone should work for her she just wanted pcp to know documented in this encounter Plan of Treatment Upcoming Encounters Date Type Department Care Team (Late st Contact Info) Description 01/28/2025 9:20 AM EDT Office Visit [address] [address] Mirna Meza FNP [address] [place] [address] documented as of this encounter Visit Diagnoses Not on filedocumented in this encounter Additional Health Concerns Assessment Noted Time PHQ-9 Depression Total Score: 7 07/16/20 24 8:02 AM EDT documented as of this encounter Care Teams Cover Assembler Relationship Specialty Start Date End Date Mirna Meza FNP [address] [place] [address] PCP - General Family Medicine 12/04/22 Diann Schwarz FNP [address] [place] [address] Family Medicine 08/10/22 documented as of this encounter
--- OUTSIDE RECORDS SUMMARY | 2025-01-18 09:59 | XMS_ITS | Encounter Summary ---
Author Organization [employer] Address [address] [facility] [address] [place] [address] Care Team Providers Care Client Services Account Manager Name Role Phone Schwarz, Diann COMPO CASTER Unavailable [phone] Mirna Meza Primary Care Provider [phone] Encounter Details Date Type Department Care Team (Late st Contact Info) Description 12/26/2023 Telephone [facility] [address] [facility] [address] [place] [address] Mirna Meza FNP [address] [place] [phone] Social History Tobacco Use Types Packs/Day [...] - 12/26/2023 4:07 PM EDT Sent to [facility] * Telephone Encounter - Dom Townsend - 12/26/2023 3:56 PM EDT Patient left a message about her prescription of rOPINIRole (Requip) 2 MG tablet, she wants to makesure we send it to the [facility] in [place] and not the [facility] service because if [facility] gets it she will be unable to get it at the [facility] documented in this encounter Plan of Treatment Upcoming Encounters Date Type Department Care Team (Late st Contact Info) Description 01/28/2025 9:20 AM EDT Office Visit [address] [address] Mirna Meza FNP [address] [place] [phone] documented as of this encounter Visit Diagnoses Not on filedocumented in this encounter Care Teams Client Services Account Manager Relationship Specialty Start Date End Date Mirna Meza FNP [address] [place] [phone] PCP - General Family Medicine 12/04/22 Diann Schwarz FNP [address] [place] [id number] Family Medicine 08/10/22 documented as of this encounter
== END 2025-01-18 09:44 | disposition home or self-care (01) ==
LOC: HO.PMC 09:02
PROVIDERS: PCP Student in an Organized Health Care Education/Training Program; Visit Provider Internal Medicine
DX: M79.18 Myalgia, other site (principal); M25.562 Pain in left knee; M51.369 Other intervertebral disc degeneration, lumbar region without mention of lumbar back pain or lower extremity pain; M47.816 Spondylosis without myelopathy or radiculopathy, lumbar region; M53.3 Sacrococcygeal disorders, not elsewhere classified
CPT/HCPCS: 99214

== ENCOUNTER 2025-04-05 13:31 | Outpatient (AMB) | payer OTHER, SELFPAY ==
[2025-04-05 13:37] VITALS: BP 119/58; PULSE 75; RESP 16; O2SAT 96; BMI 28.7
--- NOTE | 2025-04-05 13:37 | A.OFFVIS_ITS ---
Vital Signs 04/05/25 13:37 Height 5 ft Weight 147 lb BMI 28.7 BP 119/58 L Blood Pressure Location Lt brachial Position Sitting Respiration 16 Pulse 75 Pulse Source Pulse Oximeter Pulse Oximetry (%) 96 Oxygen Delivery Method Room Air Intake Visit Reasons: 2 MONTH FOLLOW UP Insurance Advisor Required: No Allergies penicillin V Allergy (Intermediate, Verified 04/05/25 13:38) rash Sulfacet-R Allergy (Intermediate, Uncoded 04/05/25 13:38) trouble breathing Medication List - Last Reconciled 04/05/25 by Angela Rhoades LPN acetaminophen ER (Tylenol Arthritis Pain) 650 mg PO Q12H calcium carbonate 600 mg PO DAILY celecoxib (Celebrex) 100 mg PO BID cetirizine (Zyrtec) 10 mg PO DAILY PRN cholecalciferol (vitamin D3) 10 mcg PO DAILY docusate sodium (Colace) 100 mg PO TID fluticasone propionate 50 mcg/actuation 1 spray intranasal DAILY fluticasone propionate 100 mcg/actuation (Flovent Diskus) 1 inh inhalation BID hydroxychloroquine (Plaquenil) 200 mg PO DAILY inulin (Fiber Gummies) grams PO lactobacillus combination no.9 (Adult 50 Plus Probiotic) 4,000 mmu cells PO DAILY levothyroxine 100 mcg PO DAILY melatonin 10 mg PO BEDTIME PRN montelukast (Singulair) 10 mg PO DAILY omeprazole 20 mg PO DAILY paroxetine HCl 20 mg PO DAILY ropinirole 3 mg PO DAILY HPI HPI 2 MONTH FOLLOW UP: Details: History of Present Illness The patient is a 59-year-old female presenting with chronic pain management and sleep disturbances. The patient reports chronic pain affecting her back, knees, and hands. She has been receiving acupuncture treatments weekly, which she finds very helpful in managing her pain and improving recovery even after activities that exacerbate the pain. The acupuncture sessions are conducted by Jim Victor at [facility] in [place], and the patient is satisfied with the results and plans to continue with treatments every other week. The patient also experiences sleep disturbances, which have seen some improvement with acupuncture, though not as much as desired. She has expressed interest in continuing acupuncture as a maintenance therapy, possibly reducing the frequency to once a month. Pain Description - Onset: Chronic - Quality: Persistent pain in back, knees, and hands - Exacerbating factors: Physical activities - Relieving factors: Acupuncture therapy Physical Exam - Appears afebrile. - Alert and oriented. - Mood and affect appropriate. - Follows and participates in conversation appropriately. - Respiratory effort is unlabored. - Able to transition from sit to stand unassisted. - Ambulates with bilaterally normal heel strike and toe off. - Able to stand and walk on toes and heels. Results Pain Management - Affect: Patient reports satisfaction with acupuncture's impact on pain management - Analgesia: Acupuncture therapy, with plans to continue every other week - Activities of Daily Living: Improved recovery post-activity due to acupuncture [facility] Medical History (Updated 11/17/24 @ 16:02 by Dheeraj Joy MD) Seasonal allergies Left knee pain Endometriosis Epidermoid cyst Fibromyalgia Asthma Deafness in left ear Osteoarthritis Low back pain Lumbar spondylosis Disc degeneration, lumbar Polyarthralgia Surgical History (Updated 10/12/24 @ 09:11 by HONG Christian) History of appendectomy History of ear surgery Social History Alcohol intake: never Physical Exam Vital Signs: Last Vital Signs Pulse 75 04/05/25 13:37 Resp 16 04/05/25 13:37 BP 119/58 L 04/05/25 13:37 Pulse Ox 96 04/05/25 13:37 Oxygen Delivery Method Room Air 04/05/25 13:37 BMI result Body Mass Index 28.7 Assessment & Plan Assessment & Plan (1) Myofascial pain: Code(s): M79.18 - Myalgia, other site Category: Medical Plan Plan - Continue acupuncture therapy every other week, with potential to reduce frequency to once a month for maintenance. - Avoid further cortisone injections unless necessary for current pain management. - Follow up prn via televisit if further consultation is needed. Patient was informed and verbally consented to the use of an ambient scribe for clinic note documentation during this visit. Discussion Notes I discussed with the patient the benefits of continuing acupuncture therapy for her chronic pain management, emphasizing its effectiveness and the possibility of reducing session frequency for maintenance. We agreed to avoid further cortisone injections unless absolutely necessary, given the patient's preference and the nature of her condition. I advised the patient to schedule a televisit if she has any further questions or needs additional consultation. Patient Instructions - Continue acupuncture therapy every other week, considering reducing to once a month for maintenance. - Avoid cortisone injections unless necessary. - Schedule a televisit if further consultation is needed. Coding Level of Care Code Est Pt Level 3 (99926) Diagnoses Myofascial pain M79.18
--- OUTSIDE RECORDS SUMMARY | 2025-04-05 14:55 | XMS_ITS | Encounter Summary ---
Author Organization [employer] Address [address] [place] [address] [address] [place] [address] Care Team Providers Care Core Drill Operator Name Role Phone Schwarz, Diann MOLDER BENCH Unavailable [phone] Mirna Meza Primary Care Provider [phone] Encounter Details Date Type Department Care Team ([facility] st Contact Info) Description 12/26/2023 Telephone [facility] 119 [facility] [address] [place] [address] Mirna Meza FNP [address] [place] [phone] Social History Tobacco Use Types Packs/Day Years [...] - 12/26/2023 4:07 PM EDT Sent to [facility] * Telephone Encounter - Dom Townsend - 12/26/2023 3:56 PM EDT Patient left a message about her prescription of rOPINIRole (Requip) 2 MG tablet, she wants to makesure we send it to the [facility] in [place] and not the [facility] service because if [facility] gets it she will be unable to get it at the [facility] documented in this encounter Plan of Treatment Upcoming Encounters Date Type Department Care Team ([facility] st Contact Info) Description 07/30/2025 9:00 AM EDT Office Visit [address] [address] Mirna Meza FNP [address] [place] [phone] documented as of this encounter Visit Diagnoses Not on filedocumented in this encounter Care Teams Core Drill Operator Relationship Specialty Start Date End Date Mirna Meza FNP [address] [place] [phone] PCP - General Family Medicine 12/04/22 Diann Schwarz FNP [address] [place] [phone] Family Medicine 08/10/22 documented as of this encounter
== END 2025-04-05 14:02 | disposition home or self-care (01) ==
LOC: HO.PMC 13:32
PROVIDERS: PCP Student in an Organized Health Care Education/Training Program; Visit Provider Internal Medicine
DX: M79.18 Myalgia, other site (principal)
CPT/HCPCS: 99213